=== PATIENT | male | born 1940 | race Caucasian/White ===

== ENCOUNTER → 2018-02-27 14:54 | Outpatient (CLI) | payer MEDICARE, OTHER, SELFPAY ==
--- NOTE | 2018-02-27 14:57 | DI.RAD.S_ITS ---
PROCEDURE: XR CHEST 2V INDICATIONS: cough TECHNIQUE: 2 views of the chest were acquired. COMPARISON: [facility], , CHEST 2 VIEW, 03/21/2013, 10:38. FINDINGS: Surgical changes and devices: None. Lungs and pleura: No pleural effusions or pneumothorax. Lungs are clear. Mediastinum: Mediastinal contours are normal. Heart size is normal. Right hilar calcified lymph nodes. Bones and chest wall: No suspicious bony abnormalities. Soft tissues appear unremarkable. IMPRESSION: No radiographic evidence of acute cardiopulmonary pathology. Dictated by: Cameron Main M.D. on 02/27/2018 at 14:21 Approved by: Cameron Main M.D. on 02/27/2018 at 14:22
== END ==
PROVIDERS: Family Provider Family Medicine; PCP Family Medicine; Visit Provider Physician Assistant
DX: R05 Cough (principal)
CPT/HCPCS: 71046

== ENCOUNTER → 2018-03-01 13:29 | Outpatient (CLI) | payer MEDICARE, OTHER, SELFPAY ==
[2018-03-01 14:19] LABS: BUN Creatinine Ratio 24.4 (6-22); Calcium 9.4 mg/dL (8.4-10.2); Estimated Glomerular Filt Rate > 60.0 mL/min (>60); Glucose 97 mg/dL (80-110); HEMOLYSIS 48 (0-50); Potassium 4.4 mmol/L (3.4-5.1); Sodium 140 mmol/L (137-145)
== END ==
PROVIDERS: Family Provider Family Medicine; PCP Family Medicine; Visit Provider Internal Medicine Cardiovascular Disease
DX: Z51.81 Encounter for therapeutic drug level monitoring (principal); Z79.899 Other long term (current) drug therapy
CPT/HCPCS: 36415; 80048

== ENCOUNTER → 2018-05-23 08:52 | Outpatient (CLI) | payer MEDICARE, OTHER, SELFPAY ==
--- NOTE | 2018-05-23 08:54 | DI.RAD.S_ITS ---
PROCEDURE: XR CERVICAL SPINE 2V OR 3V INDICATIONS: Cervicalgia TECHNIQUE: 4 view(s) of the cervical spine were acquired. COMPARISON: None. FINDINGS: Bones: No fractures or dislocations to the C7 level. The lateral masses of C1 appear intact on the odontoid view. No suspicious bony lesions. Degenerative disc disease and spondylosis is evident at C4-5, C5-6, C6-7 and C7-T1. Mild bilateral facet arthropathy. Soft tissues: No prevertebral soft tissue swelling. IMPRESSION: 1. No acute bony abnormality. 2. 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 Dictated by: Tyson Smith M.D. on 05/23/2018 at 9:18 Approved by: Tyson Smith M.D. on 05/23/2018 at 9:20
== END ==
PROVIDERS: Family Provider Family Medicine; PCP Family Medicine
DX: M50.30 Other cervical disc degeneration, unspecified cervical region (principal); M47.812 Spondylosis without myelopathy or radiculopathy, cervical region
CPT/HCPCS: 72040

== ENCOUNTER → 2018-06-14 09:28 | Outpatient (CLI) | payer MEDICARE, OTHER, SELFPAY ==
[2018-06-14 11:11] LABS: Blood Urea Nitrogen 20 mg/dL (9-20); Calcium 9.2 mg/dL (8.4-10.2); Carbon Dioxide 31 mmol/L (22-32); Chloride 102 mmol/L (98-107); Estimated Glomerular Filt Rate > 60.0 mL/min (>60); Glucose 73 mg/dL (80-110); HEMOLYSIS < 15 (0-50); Potassium 4.2 mmol/L (3.4-5.1); Sodium 143 mmol/L (137-145)
== END ==
PROVIDERS: PCP Family Medicine; Visit Provider Internal Medicine Cardiovascular Disease
DX: Z51.81 Encounter for therapeutic drug level monitoring (principal); Z79.899 Other long term (current) drug therapy
CPT/HCPCS: 36415; 80048

== ENCOUNTER → 2019-03-22 14:45 | Outpatient (CLI) | payer MEDICARE, OTHER, SELFPAY ==
[2019-03-22 15:35] LABS: BUN Creatinine Ratio 21.3 (6-22); Blood Urea Nitrogen 17 mg/dL (9-20); Carbon Dioxide 30 mmol/L (22-32); Chloride 102 mmol/L (98-107); Estimated Glomerular Filt Rate > 60.0 mL/min (>60); Glucose 95 mg/dL (80-110); HEMOLYSIS < 15 (0-50); Potassium 4.4 mmol/L (3.4-5.1); Sodium 138 mmol/L (137-145)
== END ==
PROVIDERS: Family Provider Family Medicine; PCP Family Medicine; Visit Provider Internal Medicine Cardiovascular Disease
DX: Z51.81 Encounter for therapeutic drug level monitoring (principal); Z79.899 Other long term (current) drug therapy
CPT/HCPCS: 36415; 80048

== ENCOUNTER → 2019-06-27 13:15 | Outpatient (CLI) | payer MEDICARE, OTHER, SELFPAY ==
[2019-06-27 14:23] LABS: Chloride 101 mmol/L (98-107); HEMOLYSIS < 15 (0-50); Potassium 4.2 mmol/L (3.4-5.1)
[2019-06-27 14:24] LABS: Blood Urea Nitrogen 18 mg/dL (9-20); Calcium 9.6 mg/dL (8.4-10.2); Carbon Dioxide 28 mmol/L (22-32); Estimated Glomerular Filt Rate > 60.0 mL/min (>60); Glucose 99 mg/dL (80-110); Sodium 138 mmol/L (137-145)
== END ==
PROVIDERS: PCP Internal Medicine; Visit Provider Internal Medicine Cardiovascular Disease
DX: Z51.81 Encounter for therapeutic drug level monitoring (principal); Z79.899 Other long term (current) drug therapy
CPT/HCPCS: 36415; 80048

== ENCOUNTER → 2019-08-17 07:33 | Outpatient (CLI) | payer MEDICARE, OTHER, SELFPAY ==
[2019-08-17 08:28] LABS: Blood Urea Nitrogen 15 mg/dL (9-20); Calcium 9.3 mg/dL (8.4-10.2); Carbon Dioxide 28 mmol/L (22-32); Chloride 102 mmol/L (98-107); Estimated Glomerular Filt Rate > 60.0 mL/min (>60); Glucose 86 mg/dL (80-110); HEMOLYSIS < 15 (0-50); Potassium 4.7 mmol/L (3.4-5.1); Sodium 137 mmol/L (137-145)
== END ==
PROVIDERS: PCP Internal Medicine; Visit Provider Internal Medicine Cardiovascular Disease
DX: Z51.81 Encounter for therapeutic drug level monitoring (principal); Z79.899 Other long term (current) drug therapy; I48.19 Other persistent atrial fibrillation
CPT/HCPCS: 36415; 80048

== ENCOUNTER → 2020-05-06 08:25 | Outpatient (CLI) | payer MEDICARE, OTHER, SELFPAY ==
[2020-05-06 09:59] LABS: Add Manual Diff / Slide Review NO; Basophils Absolute Auto 0 /uL (0-100); Basophils Percent Auto 0.5 % (0-2); Eosinophils Absolute Auto 500 /uL (0-450); Eosinophils Percent Auto 7.5 % (2-4); Hematocrit 42.1 % (41-53); Hemoglobin 14.4 g/dL (13.5-17.5); Lymphocytes Absolute Auto 1900 /uL (1100-4500); Lymphocytes Percent Auto 25.8 % (25-40); Mean Corpuscular HGB Conc 34.2 % (30-36); Mean Corpuscular Hemoglobin 32.4 PG (26-34); Mean Corpuscular Volume 94.8 fL (80-100); Monocytes Absolute Auto 500 /uL (0-900); Monocytes Percent Auto 6.4 % (3-14); Neutrophils Absolute Auto 4300 /uL (1500-7000); Neutrophils Percent Auto 59.8 % (50-75); Platelet Count 213 X10^3/uL (150-400); Red Blood Cell Count 4.44 X10^6/uL (4.5-5.9); White Blood Cell Count 7.2 X10^3/uL (4.5-11.0)
[2020-05-06 10:23] LABS: Alanine Aminotransferase 49 IU/L (<50); Albumin 3.9 g/dL (3.5-5.0); Albumin Globulin Ratio 1.4 (1.0-2.8); Alkaline Phosphatase 67 U/L (38-126); Aspartate Aminotransferase 48 IU/L (17-59); BUN Creatinine Ratio 16.5 (6-22); Bilirubin Total 0.9 mg/dL (0.2-1.3); Blood Urea Nitrogen 21 mg/dL (9-20); Calcium 9.2 mg/dL (8.4-10.2); Carbon Dioxide 28 mmol/L (22-32); Chloride 105 mmol/L (98-107); Cholesterol 192 mg/dL (140-199); Estimated Glomerular Filt Rate 54.8 mL/min (>60); Globulin 2.8 g/dL (1.7-4.1); Glucose 92 mg/dL (80-110); HDL Cholesterol 65 mg/dL (40-60); HEMOLYSIS < 15 (0-50); LDL Cholesterol Calculated 113 mg/dL (<100); Potassium 4.6 mmol/L (3.4-5.1); Sodium 136 mmol/L (137-145); Total Protein 6.7 g/dL (6.3-8.2); Triglycerides 71 mg/dL (35-150)
[2020-05-06 10:51] LABS: TSH w/ Reflex to FT4 3.14 uIU/mL (0.47-4.68)
== END ==
PROVIDERS: PCP Internal Medicine; Referring Provider Internal Medicine; Visit Provider Internal Medicine
DX: Z79.01 Long term (current) use of anticoagulants (principal); E78.5 Hyperlipidemia, unspecified; I48.0 Paroxysmal atrial fibrillation; Z86.11 Personal history of tuberculosis
CPT/HCPCS: 36415; 80053; 80061; 84443; 85025

== ENCOUNTER → 2020-05-26 08:54 | Outpatient (CLI) | payer MEDICARE, OTHER, SELFPAY ==
[2020-05-27 03:49] LABS: COVID19 Sendout Not Detected (Not Detect)
== END ==
PROVIDERS: PCP Internal Medicine; Visit Provider Physician Assistant
DX: Z11.59 Encounter for screening for other viral diseases (principal)
CPT/HCPCS: 87635

== ENCOUNTER → 2020-05-29 09:03 | Outpatient (CLI) | payer MEDICARE, OTHER, SELFPAY ==
--- NOTE | 2020-06-05 11:16 | PM.PFT.1 ---
Pulmonary Function Test Referral & Results Date Patient Seen: 05/29/20 Requesting provider: Ganga Miller Results: The spirometry demonstrates an FVC of 3.56 L which is 79% of predicted. The FEV1 was measured at 2.48 L which is 77% of predicted. The FEV1/FVC ratio was 70 which is 96% of predicted. No lung volumes were performed, and no bronchodilator was administered The diffusing capacity was measured at 23.59 which is 67% of predicted. No hemoglobin value was provided, so no correction for potential anemia could be made, if appropriate. Interpretation: This study demonstrates mild obstructive lung disease based on slight reduction in FEV1 There is also a modest reduction in diffusing capacity suggesting an element of disease at the capillary alveolar level Clinical correlation suggested
== END ==
PROVIDERS: PCP Internal Medicine; Referring Provider Internal Medicine Cardiovascular Disease; Visit Provider Internal Medicine Cardiovascular Disease
DX: I48.19 Other persistent atrial fibrillation (principal); J44.9 Chronic obstructive pulmonary disease, unspecified; Z51.81 Encounter for therapeutic drug level monitoring; Z79.899 Other long term (current) drug therapy
CPT/HCPCS: 94010; 94729

== ENCOUNTER → 2021-06-03 09:56 | Outpatient (CLI) | payer MEDICARE, OTHER, SELFPAY ==
--- NOTE | 2021-06-03 09:58 | DI.RAD.S_ITS ---
PROCEDURE: XR SHOULDER RT MIN 2V INDICATIONS: R shoulder strain TECHNIQUE: 3 views of the shoulder were acquired. COMPARISON: [facility], , SHOULDER MINIMUM 2 VIEW LEFT, 07/15/2011, 14:35. FINDINGS: Bones: No fractures or dislocations. No suspicious bony lesions. Visualized ribs appear intact. Scattered degenerative subchondral sclerosis and spurring. Soft tissues: No suspicious soft tissue calcifications. IMPRESSION: Mild right shoulder joint degeneration. If the patient's pain or other symptoms persist, consider further evaluation with MRI Dictated by: Dieter Mcdaniel M.D. on 06/03/2021 at 10:30 Approved by: Dieter Mcdaniel M.D. on 06/03/2021 at 10:31
== END ==
PROVIDERS: PCP Internal Medicine; Referring Provider Physician Assistant; Visit Provider Physician Assistant
DX: S46.911A Strain of unspecified muscle, fascia and tendon at shoulder and upper arm level, right arm, initial encounter (principal); M19.011 Primary osteoarthritis, right shoulder
CPT/HCPCS: 73030

== ENCOUNTER → 2021-10-16 14:01 | Outpatient (CLI) | payer MEDICARE, OTHER, SELFPAY ==
[2021-10-16 14:45] LABS: Add Manual Diff / Slide Review NO; Basophils Absolute Auto 0 /uL (0-100); Basophils Percent Auto 0.4 % (0-2); Eosinophils Absolute Auto 400 /uL (0-450); Eosinophils Percent Auto 5.5 % (2-4); Hematocrit 41.7 % (41-53); Hemoglobin 14.3 g/dL (13.5-17.5); Lymphocytes Absolute Auto 2200 /uL (1100-4500); Lymphocytes Percent Auto 30.7 % (25-40); Mean Corpuscular HGB Conc 34.4 % (30-36); Mean Corpuscular Hemoglobin 32.2 PG (26-34); Mean Corpuscular Volume 93.5 fL (80-100); Monocytes Absolute Auto 400 /uL (0-900); Monocytes Percent Auto 5.8 % (3-14); Neutrophils Absolute Auto 4200 /uL (1500-7000); Neutrophils Percent Auto 57.6 % (50-75); Platelet Count 219 X10^3/uL (150-400); Red Blood Cell Count 4.46 X10^6/uL (4.5-5.9); Red Cell Distribution Width 13.2 % (11.6-14.8); White Blood Cell Count 7.2 X10^3/uL (4.5-11.0)
[2021-10-16 15:09] LABS: Alanine Aminotransferase 14 IU/L (<50); Albumin 4.3 g/dL (3.5-5.0); Albumin Globulin Ratio 1.3 (1.0-2.8); Alkaline Phosphatase 60 U/L (38-126); Aspartate Aminotransferase 32 IU/L (17-59); BUN Creatinine Ratio 17.9 (6-22); Bilirubin Total 0.6 mg/dL (0.2-1.3); Blood Urea Nitrogen 19 mg/dL (9-20); Calcium 9.3 mg/dL (8.4-10.2); Carbon Dioxide 28 mmol/L (22-32); Chloride 104 mmol/L (98-107); Estimated Glomerular Filt Rate > 60.0 mL/min (>60); Globulin 3.3 g/dL (1.7-4.1); Glucose 91 mg/dL (80-110); HEMOLYSIS < 15 (0-50); Potassium 4.5 mmol/L (3.4-5.1); Sodium 137 mmol/L (137-145); Total Protein 7.6 g/dL (6.3-8.2)
[2021-10-16 15:37] LABS: TSH w/ Reflex to FT4 1.68 uIU/mL (0.47-4.68)
== END ==
PROVIDERS: PCP Internal Medicine; Referring Provider Internal Medicine; Visit Provider Internal Medicine
DX: E78.5 Hyperlipidemia, unspecified (principal); Z13.29 Encounter for screening for other suspected endocrine disorder; Z79.899 Other long term (current) drug therapy
CPT/HCPCS: 36415; 80053; 84443; 85025

== ENCOUNTER → 2022-03-15 08:58 | Outpatient (CLI) | payer MEDICARE, OTHER, SELFPAY ==
--- NOTE | 2022-03-15 09:00 | DI.MG.S_ITS ---
MALE BILATERAL DIGITAL DIAGNOSTIC MAMMOGRAM 3D/2D: 03/15/2022 CLINICAL: Left breast pain. No prior exams were available for comparison. There is mild to moderate left-sided gynecomastia in the retroareolar region corresponding to the patient-indicated area of concern. There is no significant right-sided gynecomastia. No suspicious mass is identified. No significant masses, calcifications, or other findings are seen in either breast. IMPRESSION: BENIGN Left gynecomastia is seen that corresponds to the patient's area of concern. Recommend clinical correlation and workup for causes of gynecomastia. There is no mammographic evidence of malignancy. This exam was interpreted at Station ID: [id number]. NOTE: For mammograms, a report in lay terms will be sent to the patient. Approximately 15% of breast malignancies will not be visualized mammographically. In the management of a palpable breast mass, a negative mammogram must not discourage biopsy of a clinically suspicious lesion. Electronically Signed By: Domingo cardoza/mateo:03/15/2022 10:29:38 letter sent: Clinical Evaluation ACR BI-RADS Category 2: Benign Finding(s) 3342F
== END ==
PROVIDERS: PCP Internal Medicine; Referring Provider Internal Medicine; Visit Provider Internal Medicine
DX: N64.4 Mastodynia (principal); N62 Hypertrophy of breast
CPT/HCPCS: 77066; G0279

== ENCOUNTER 2023-05-14 07:36 | Emergency (ER) | payer MEDICARE, OTHER, SELFPAY ==
[2023-05-14 07:41] VITALS: BP 185/77; PULSE 55; RESP 18; O2SAT 98; BMI 23.0
--- NOTE | 2023-05-14 07:46 | ED.GENADULT ---
HPI - General Adult General Chief complaint: Eye Problems Stated complaint: RT eye swollen Time Seen by Provider: 05/14/23 07:37 Source: patient Mode of arrival: Ambulatory History of Present Illness HPI narrative: Patient is an 82-year-old male was here for evaluation of approximately 48 hours of pain and irritation to his right eye. He denies any trauma. Has had bilateral cataract surgery in the past but that was several years ago. He states he is having some blurry vision in his right eye. No painful vision. No foreign body sensation. He states it is painful on the outside of his eye. It is watery and somewhat swollen. Related Data Home Medications Medication Instructions Recorded Confirmed Centrum Silver - Multivitamin 1 tab PO QDAY ##0 05/01/20 02/08/22 cetirizine 10 mg tablet (Zyrtec) 10 mg PO DAILY PRN 05/01/20 02/08/22 methocarbamol 500 mg tablet 500 mg PO .PRN 05/01/20 02/08/22 Magnesium Citrate 1 tab PO DAILY 10/20/21 02/08/22 furosemide 20 mg tablet 20 mg PO DAILY PRN 10/20/21 02/08/22 metoprolol succinate 25 mg 12.5 mg PO DAILY 10/20/21 02/08/22 tablet,extended release 24 hr Previous Rx's Medication Instructions Recorded rivaroxaban 20 mg tablet 20 mg PO QPM #90 tabs 10/14/20 finasteride 5 mg tablet 5 mg PO 3XW #36 tabs 10/20/21 erythromycin 5 mg/gram (0.5 %) eye 0.5 inch EYE-RIGHT BID 2 days #3.5 05/14/23 ointment grams Allergies Allergy/AdvReac Type Severity Reaction Status Date / Time No Known Drug Allergies Allergy Verified 02/08/22 16:26 Review of Systems Constitutional Constitutional: Reports system reviewed and no additional complaints, except as documented Eyes Eyes: Reports system reviewed and no additional complaints, except as documented ENT Ears, Nose, Mouth, and Throat: Reports system reviewed and no additional complaints, except as documented Integumentary/Breasts Skin/Breast: Reports system reviewed and no additional complaints, except as documented Patient History Medical History Acute hemorrhoid Allergic rhinitis (~1994) BPH w urinary obs/LUTS Cataract (~2017) Hemorrhoid (~1960) History of tuberculosis (Unknown) Hyperlipidemia 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 Brother Alzheimer's disease Grandmother No problems noted. Social History Smoking Status: Former smoker Tobacco: How many years used: 2 second hand exposure: No alcohol intake: current (wine with dinner and a little scotch 3 times a week. I have beer 2-3 times a week.) substance use type: does not use Smoking Status: Former smoker alcohol intake frequency: other Substance Use Type: does not use Exam Initial Vital Signs Initial Vital Signs: Vital Signs Pulse Rate 55 L 05/14/23 07:41 Respiratory Rate 18 05/14/23 07:41 Blood Pressure 185/77 H 05/14/23 07:41 Pulse Oximetry 98 05/14/23 07:41 Oxygen Delivery Method Room Air 05/14/23 07:41 Const General: cooperative, healthy appearing and No ill appearing HENMT Head: normal to inspection and normocephalic Face and sinus: normal facial exam Eyes Other: Left eye is unremarkable. Interocular pressure left eye 18, interocular pressure right eye 19. Patient does have chemosis on the inferior temporal aspect of the right eye. No foreign body noted with visual inspection and eversion of the upper and lower eyelid. There was no uptake with fluorescein staining. No corneal abrasion. No erythema in the skin around the eyes. There is some swelling of the skin around the eye. Pupils are equal round and reactive. Extraocular muscles are intact. No photophobia. No hyphema. No subconjunctival hemorrhage. Course Orders Ordered: Discontinued Medications Erythromycin (Erythromycin Ophth 1 Gm Oint) 1 applic EYE-RIGHT NOW ONE Stop: 05/14/23 08:04 Fluorescein Sodium (Fluorescein 1 Mg Strip) 1 mg EYE-BOTH NOW ONE Stop: 05/14/23 07:46 Last Admin: 05/14/23 07:52 Dose: 1 mg Documented By: MAVIS Proparacaine HCl (Proparacaine 0.5% Ophth Kerry) 1 drops EYE-RIGHT NOW ONE Stop: 05/14/23 07:48 Last Admin: 05/14/23 07:53 Dose: 1 drop Documented By: MAVIS Vital Signs Vital signs: Vital Signs - 8 hr 05/14/23 07:41 Pulse Rate 55 L Respiratory Rate 18 Blood Pressure 185/77 H Pulse Oximetry 98 Oxygen Delivery Method Room Air Medical Decision Making MDM Narrative Medical decision making narrative: Physical exam today is consistent with a conjunctivitis and chemosis of the right eye. Low suspicion for glaucoma, foreign body, orbital cellulitis, periorbital cellulitis, retinal pathology, trauma. Plan will be is to place the patient on antibiotic ointment. He was given a dose here in the ER and a prescription was sent to his pharmacy. 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 He was given strict return precautions. He expressed understanding and agreement. Discharge Plan Departure Patient Disposition: Home Clinical Impression: Conjunctivitis, Chemosis of right conjunctiva Instructions: Conjunctivitis Activity Restrictions/Additional Instructions: Use the erythromycin eye ointment like we discussed. I suspect that your symptoms will be better within the next couple days however if you need to use the antibiotic ointment for a little longer you certainly can. Be sure that you are washing your hands frequently. You can contact your vmware systems administrator on Tuesday for a follow-up. Return to the emergency department for new symptoms. Prescriptions: New erythromycin 5 mg/gram (0.5 %) ointment 0.5 inch EYE-RIGHT BID 2 Days Qty: 3.5 1RF No Action Centrum Silver - Multivitamin 1 tab PO QDAY Qty: 0 rivaroxaban 20 mg tablet 20 mg PO QPM Qty: 90 3RF cetirizine [Zyrtec] 10 mg tablet 10 mg PO DAILY PRN Rx Instructions: For Allergies methocarbamol 500 mg tablet 500 mg PO .PRN Rx Instructions: Takes when needed for muscle spasms furosemide 20 mg tablet 20 mg PO DAILY PRN Magnesium Citrate 400 mg 1 tab PO DAILY metoprolol succinate 25 mg tablet extended release 24 hr 12.5 mg PO DAILY finasteride 5 mg tablet 5 mg PO 3XW Qty: 36 3RF Referrals: Adrian London MD [Primary Care Provider] - Stand Alone Forms: Patient Portal/API
[2023-05-14] MEDS: FLUORESCEIN 1 MG STRIP EYE-BOTH (07:52)
[2023-05-14] MEDS: PROPARACAINE 0.5% OPHTH SOL 1 DROPS EYE-RIGHT (07:53)
[2023-05-14] MEDS: ERYTHROMYCIN OPHTH 1 GM OINT 1 APPLIC EYE-RIGHT (08:08)
== END 2023-05-14 08:19 | disposition home or self-care (01) ==
PROVIDERS: Emergency Provider Emergency Medicine; PCP Internal Medicine
DX: H10.9 Unspecified conjunctivitis (principal); H11.421 Conjunctival edema, right eye
CPT/HCPCS: 99282

== ENCOUNTER 2023-07-25 19:17 | Emergency (ER) | payer MEDICARE, OTHER, SELFPAY ==
[2023-07-25] VITALS (11 sets, daily range): BP systolic 95–142; BP diastolic 55–73; PULSE 74–88; RESP 24; TEMP 36.6; O2SAT 95–98; BMI 22.4
--- NOTE | 2023-07-25 19:50 | DI.RAD.S_ITS ---
PROCEDURE: XR CHEST 2V INDICATIONS: cough and pain with it. TECHNIQUE: 2 views of the chest were acquired. COMPARISON: [facility], , XR CHEST 2V, 02/27/2018, 15:03. [facility], , CHEST 2 VIEW, 03/21/2013, 10:38. FINDINGS: Surgical changes and devices: None. Lungs and pleura: Lungs are clear. No pleural effusions or pneumothorax. Mediastinum: Mediastinal contours are normal. Heart size is normal. Bones and chest wall: No suspicious bony abnormalities. Soft tissues appear unremarkable. IMPRESSION: No acute cardiopulmonary abnormality. Dictated by: Domingo Dobbins M.D. on 07/25/2023 at 21:46 Approved by: Domingo Dobbins M.D. on 07/25/2023 at 21:49
[2023-07-25 20:34] LABS: Influenza A - CEPHEID Flu A NEGATIVE (NEGATIVE); Influenza B - CEPHEID Flu B NEGATIVE (NEGATIVE); Respiratory Syncytial Virus Negative (Negative)
[2023-07-25 20:35] LABS: COVID-19 CEPHEID 4-PLEX PCR Negative (Negative)
[2023-07-25] MEDS: HYDROMORPHONE 0.5 MG INJ IV (21:48)
[2023-07-25 22:09] LABS: Add Manual Diff / Slide Review NO; Basophils Absolute Auto 100 /uL (0-100); Basophils Percent Auto 0.9 % (0-2); Eosinophils Absolute Auto 0 /uL (0-450); Eosinophils Percent Auto 0.1 % (2-4); Hematocrit 34.8 % (41-53); Hemoglobin 12.2 g/dL (13.5-17.5); Lymphocytes Absolute Auto 1300 /uL (1100-4500); Lymphocytes Percent Auto 12.2 % (25-40); Mean Corpuscular Hemoglobin 32.8 PG (26-34); Mean Corpuscular Volume 93.8 fL (80-100); Monocytes Absolute Auto 2500 /uL (0-900); Monocytes Percent Auto 24.2 % (3-14); Neutrophils Absolute Auto 6500 /uL (1500-7000); Neutrophils Percent Auto 62.6 % (50-75); Platelet Count 120 X10^3/uL (150-400); Red Blood Cell Count 3.71 X10^6/uL (4.5-5.9); White Blood Cell Count 10.4 X10^3/uL (4.5-11.0)
[2023-07-25 22:18] LABS: Alanine Aminotransferase 16 IU/L (<50); Albumin 4.1 g/dL (3.5-5.0); Albumin Globulin Ratio 1.1 (1.0-2.8); Alkaline Phosphatase 47 U/L (38-126); Aspartate Aminotransferase 26 IU/L (17-59); BUN Creatinine Ratio 16.5 (6-22); Bilirubin Total 0.9 mg/dL (0.2-1.3); Blood Urea Nitrogen 15 mg/dL (9-20); Calcium 9.2 mg/dL (8.4-10.2); Carbon Dioxide 26 mmol/L (22-32); Chloride 99 mmol/L (98-107); Estimated Glomerular Filt Rate > 60 mL/min (>60); Globulin 3.8 g/dL (1.7-4.1); Glucose 123 mg/dL (80-110); HEMOLYSIS 17 (0-50); Lipase 46 U/L (23-300); Magnesium 2.2 mg/dL (1.6-2.3); Potassium 4.4 mmol/L (3.4-5.1); Sodium 133 mmol/L (137-145); Total Protein 7.9 g/dL (6.3-8.2)
[2023-07-25 22:28] LABS: Troponin I < 0.012 ng/mL (0.01-0.034)
[2023-07-25 22:33] LABS: D Dimer 222 ng/ml (<500)
[2023-07-26] VITALS: BP 110/63; PULSE 75; O2SAT 98
[2023-07-26 00:30] VITALS: BP 106/55; PULSE 77; O2SAT 98
--- NOTE | 2023-07-26 00:43 | ED.BACK ---
HPI - Back Pain/Injury General Chief Complaint: Back Pain/Injury Stated Complaint: Neck pain, SOB, Sensitivity Time Seen by Provider: 07/25/23 21:36 Source: patient History of Present Illness HPI Narrative: 82-year-old gentleman with a history of hypertension, paroxysmal atrial fibrillation anticoagulated on rivaroxaban with 3 days of cough with pain in the upper back and his neck when he coughs. He is not noting palpitations, fevers. Symptoms today progress to the point that he felt he was unable to get into any type of comfortable position in the pain was severe enough that he could not get a deep breath. He is had no nausea, vomiting, abdominal pain, diarrhea, lower extremity swelling. Related Data Home Medications Medication Instructions Recorded Confirmed Centrum Silver - Multivitamin 1 tab PO QDAY ##0 05/01/20 02/08/22 cetirizine 10 mg tablet (Zyrtec) 10 mg PO DAILY PRN 05/01/20 02/08/22 methocarbamol 500 mg tablet 500 mg PO .PRN 05/01/20 02/08/22 Magnesium Citrate 1 tab PO DAILY 10/20/21 02/08/22 furosemide 20 mg tablet 20 mg PO DAILY PRN 10/20/21 02/08/22 metoprolol succinate 25 mg 12.5 mg PO DAILY 10/20/21 02/08/22 tablet,extended release 24 hr Previous Rx's Medication Instructions Recorded rivaroxaban 20 mg tablet 20 mg PO QPM #90 tabs 10/14/20 finasteride 5 mg tablet 5 mg PO 3XW #36 tabs 10/20/21 erythromycin 5 mg/gram (0.5 %) eye 0.5 inch EYE-RIGHT BID 2 days #3.5 05/14/23 ointment grams Allergies Allergy/AdvReac Type Severity Reaction Status Date / Time No Known Drug Allergies Allergy Verified 07/25/23 20:06 Review of Systems Review of Systems Narrative: Pertinent positive and negative findings as per HPI Patient History Medical History Acute hemorrhoid Allergic rhinitis (~1994) BPH w urinary obs/LUTS Cataract (~2016) Hemorrhoid (~1959) History of tuberculosis (Unknown) Hyperlipidemia residential current use of antiarrhythmic drug residential current use of anticoagulant 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 Brother Alzheimer's disease Grandmother No problems noted. Social History Smoking Status: Former smoker Tobacco: How many years used: 2 second hand exposure: No alcohol intake: current (wine with dinner and a little scotch 3 times a week. I have beer 2-3 times a week.) substance use type: does not use Smoking Status: Former smoker alcohol intake frequency: other Substance Use Type: does not use Exam Initial Vital Signs Initial Vital Signs: Vital Signs Temperature 97.9 F 07/25/23 19:30 Pulse Rate 88 07/25/23 19:30 Respiratory Rate 24 07/25/23 19:30 Blood Pressure 131/71 07/25/23 19:30 Pulse Oximetry 98 07/25/23 19:30 Oxygen Delivery Method Room Air 07/25/23 19:30 General: Healthy appearing, in no acute distress. Able to give a complete and coherent history. Well-nourished well-developed HEENT: Moist mucous membranes, normal sclera with reactive pupils, Neck: No JVD, supple Respiratory: Lungs are clear to auscultation, no wheezing no rales no rhonchi. Full and symmetrical air movement. No pain to palpation along the cervical spine, trapezius muscles or into the clavicle/1st rib area. Cardiac: Regular rate and rhythm no murmurs no bruits Abdomen: Soft, nontender, good bowel tones, no flank pain Skin: Warm and dry, no rashes Neurologic: Grossly neurologically intact with no obvious asymmetries or abnormalities Extremities: No trauma, well perfused Psych: Cooperative, appropriate insight and affect Course Orders Ordered: ED Orders 07/25/23 19:50 Chest [XR chest 2V] Stat Covid-19 + FLU A/B + RSV - PCR Stat 07/25/23 21:54 Complete Blood Count AUTO DIFF Stat Comprehensive Metabolic Panel Stat D Dimer Stat Lipase Stat Magnesium Stat Troponin I Stat Hydromorphone HCl (Hydromorphone 0.5 Mg Inj) 0.5 mg IV Q15MIN PRN PRN Reason: Pain, Last Admin: 07/25/23 21:48 Dose: 0.5 mg Documented By: IVETT Vital Signs Vital signs: Vital Signs - 8 hr 07/25/23 19:30 07/25/23 20:57 07/25/23 20:58 Temperature 97.9 F Pulse Rate 88 84 Respiratory Rate 24 Blood Pressure 131/71 Pulse Oximetry 98 96 97 Oxygen Delivery Method Room Air 07/25/23 20:58 07/25/23 21:00 07/25/23 21:01 Temperature Pulse Rate 79 Respiratory Rate Blood Pressure 138/59 L 142/73 H Pulse Oximetry 96 Oxygen Delivery Method 07/25/23 21:01 07/25/23 21:30 07/25/23 21:30 Temperature Pulse Rate 79 84 Respiratory Rate Blood Pressure 125/65 Pulse Oximetry 97 98 Oxygen Delivery Method 07/25/23 22:00 07/25/23 22:00 07/25/23 22:30 Temperature Pulse Rate 77 75 Respiratory Rate Blood Pressure 103/58 L Pulse Oximetry 95 97 Oxygen Delivery Method 07/25/23 22:30 07/25/23 23:00 07/25/23 23:00 Temperature Pulse Rate 79 Respiratory Rate Blood Pressure 95/55 L 105/59 L Pulse Oximetry 98 Oxygen Delivery Method 07/25/23 23:30 07/25/23 23:31 07/25/23 23:31 Temperature Pulse Rate 74 76 Respiratory Rate Blood Pressure 120/56 L Pulse Oximetry 98 98 Oxygen Delivery Method 07/26/23 00:00 07/26/23 00:00 07/26/23 00:30 Temperature Pulse Rate 75 Respiratory Rate Blood Pressure 110/63 106/55 L Pulse Oximetry 98 Oxygen Delivery Method 07/26/23 00:30 Temperature Pulse Rate 77 Respiratory Rate Blood Pressure Pulse Oximetry 98 Oxygen Delivery Method MDM - Back Pain/Injury Lab Data 07/25/23 21:54 07/25/23 21:54 Labs: Lab Results 07/25/23 07/25/23 Range/Units 19:50 21:54 WBC 10.4 (4.5-11.0) X10^3/uL RBC 3.71 L (4.5-5.9) X10^6/uL Hgb 12.2 L (13.5-17.5) g/dL Hct 34.8 L (41-53) % MCV 93.8 (80-100) fL MCH 32.8 (26-34) PG MCHC 35.0 (30-36) % RDW 14.0 (11.6-14.8) % Plt Count 120 L (150-400) X10^3/uL Neut % (Auto) 62.6 (50-75) % Lymph % (Auto) 12.2 L (25-40) % Cache % (Auto) 24.2 H (3-14) % Eos % (Auto) 0.1 L (2-4) % Baso % (Auto) 0.9 (0-2) % Neut # (Auto) 6500 (6006-6159) /uL Lymph # (Auto) 1300 (7923-9092) /uL Cache # (Auto) 2500 H (0-900) /uL Eos # (Auto) 0 (0-450) /uL Baso # (Auto) 100 (0-100) /uL D-Dimer 222 (<500) ng/ml Sodium 133 L (137-145) mmol/L Potassium 4.4 (3.4-5.1) mmol/L Chloride 99 (98-107) mmol/L Carbon Dioxide 26 (22-32) mmol/L BUN 15 (9-20) mg/dL Creatinine 0.91 (0.66-1.25) mg/dL Estimated GFR > 60 (>60) mL/min BUN/Creatinine Ratio 16.5 (6-22) Glucose 123 H (80-110) mg/dL Calcium 9.2 (8.4-10.2) mg/dL Magnesium 2.2 (1.6-2.3) mg/dL Total Bilirubin 0.9 (0.2-1.3) mg/dL AST 26 (17-59) IU/L ALT 16 (<50) IU/L Alkaline Phosphatase 47 (38-126) U/L Troponin I < 0.012 (0.01-0.034) ng/mL Total Protein 7.9 (6.3-8.2) g/dL Albumin 4.1 (3.5-5.0) g/dL Globulin 3.8 (1.7-4.1) g/dL Albumin/Globulin Ratio 1.1 (1.0-2.8) Lipase 46 (23-300) U/L SARS-CoV-2 (PCR) Negative (Negative) Influenza A (RT-PCR) Flu a negative (NEGATIVE) Influenza B (RT-PCR) Flu b negative (NEGATIVE) RSV (PCR) Negative (Negative) MDM Narrative Medical decision making narrative: CC: 3 days of cough with associated neck and upper back pain Complicating co-morbidities: Paroxysmal atrial fibrillation, anticoagulated Data collected from: patient, Social determinants of health that may influence the patients condition: Medical records reviewed: Internal medicine notes from February of 2022 reviewed Differential considered: Pulmonary embolism, acute coronary syndrome, aortic dissection, pneumothorax, pleuritic pain Exam documented above, pertinent findings include: Pain with inspiration at the lung apices radiating into the neck. No pain if he has shallow breathing. No reproducible pain exam is otherwise benign Lab Test results independently reviewed as above. Pertinent findings: CBC shows no acute leukocytosis however there is a moderate drop in his H&H. In comparison to October of 2021 at 14.3 and 41.7 he is now at 12.2 and 34.8. Platelet count is also slightly low at 120. D-dimer is low suggesting absence of pulmonary embolism Chemistries are reassuring with no renal or electrolyte abnormalities Troponin is undetectable Lipase is normal Serology shows no COVID, influenza or RSV Imaging studies independently reviewed: Chest x-ray shows no acute cardiopulmonary disease Treatments:parenteral dilaudid Re-evaluations: pain decreased by 80-90%, able to take a deep breath Discussion: 82-year-old gentleman who had the acute onset of pain in the upper lung apices radiating into his neck after a difficult trip returning from [place] being stuck in airports for extended numbers hours. He is not noting fevers or cough. Workup is entirely benign. I am appreciating no cardiac etiology. Chest x-ray is unremarkable. His pain was almost entirely resolved with a single half a mg of Dilaudid. Findings are reviewed with him. Questions are answered at this point I think he is safe for discharge home. There is maybe the start of a viral infection or may simply be mild pleuritic pain of uncertain etiology. We discussed the use of Tylenol and I am going to send him home with for Percocet for severe pain. He will follow up with his primary care physician. Discharge Plan Departure Patient Disposition: Home Clinical Impression: Acute pleurisy without pleural effusion Instructions: DI for Pleurisy Activity Restrictions/Additional Instructions: Thank you for coming in today I am sorry that you are suffering so much with this pain. Fortunately your workup today was entirely reassuring. I am not seeing any life-threatening abnormalities to explain the symptoms. Specifically, there is no sign of infection, pneumothorax, acute coronary syndrome, pulmonary embolism or aortic dissection. Your symptoms improved significantly with a small dose of parenteral narcotic, Dilaudid. At this time, I think that your symptoms are most likely secondary to pleuritic upper lung pain. The best treatment option for this is nonsteroidals however you can not take that due to your Xarelto. I would recommend Tylenol if needed and if you are having severe pain I would take 1 Percocet and 1 Tylenol. If symptoms change or you develop new findings please feel free to return to the emergency department Prescriptions: No Action Centrum Silver - Multivitamin 1 tab PO QDAY Qty: 0 rivaroxaban 20 mg tablet 20 mg PO QPM Qty: 90 3RF cetirizine [Zyrtec] 10 mg tablet 10 mg PO DAILY PRN Rx Instructions: For Allergies methocarbamol 500 mg tablet 500 mg PO .PRN Rx Instructions: Takes when needed for muscle spasms furosemide 20 mg tablet 20 mg PO DAILY PRN Magnesium Citrate 400 mg 1 tab PO DAILY metoprolol succinate 25 mg tablet extended release 24 hr 12.5 mg PO DAILY finasteride 5 mg tablet 5 mg PO 3XW Qty: 36 3RF erythromycin 5 mg/gram (0.5 %) ointment 0.5 inch EYE-RIGHT BID 2 Days Qty: 3.5 1RF Referrals: Adrian London MD [Primary Care Provider] - Stand Alone Forms: Patient Portal/API
[2023-07-26 01:00] VITALS: BP 114/61; PULSE 83; O2SAT 98
[2023-07-26] MEDS: OXYCODONE/APAP 5/325 PREPACK 1 BOTTLE MISC (01:10)
== END 2023-07-26 01:15 | disposition home or self-care (01) ==
PROVIDERS: Emergency Provider Emergency Medicine; PCP Internal Medicine
DX: R09.1 Pleurisy (principal); M54.6 Pain in thoracic spine; Z20.822 Contact with and (suspected) exposure to COVID-19
CPT/HCPCS: 0241U; 36415; 71046; 80053; 83690; 83735; 84484; 85025; 85379; 96374; 99284; J1170

== ENCOUNTER → 2023-08-05 11:40 | Outpatient (CLI) | payer MEDICARE, OTHER, SELFPAY ==
[2023-08-05 12:02] LABS: Hemoglobin 10.9 g/dL (13.5-17.5); Mean Corpuscular HGB Conc 34.2 % (30-36); Mean Corpuscular Hemoglobin 31.8 PG (26-34); Mean Corpuscular Volume 93.2 fL (80-100); Platelet Count 189 X10^3/uL (150-400); Red Blood Cell Count 3.43 X10^6/uL (4.5-5.9); White Blood Cell Count 6.3 X10^3/uL (4.5-11.0)
[2023-08-05 12:22] LABS: Alanine Aminotransferase 22 IU/L (<50); Albumin 4.1 g/dL (3.5-5.0); Albumin Globulin Ratio 1.1 (1.0-2.8); Alkaline Phosphatase 54 U/L (38-126); Aspartate Aminotransferase 26 IU/L (17-59); BUN Creatinine Ratio 16.5 (6-22); Bilirubin Total 0.3 mg/dL (0.2-1.3); Blood Urea Nitrogen 18 mg/dL (9-20); Calcium 9.7 mg/dL (8.4-10.2); Carbon Dioxide 27 mmol/L (22-32); Chloride 102 mmol/L (98-107); Estimated Glomerular Filt Rate > 60 mL/min (>60); Globulin 3.7 g/dL (1.7-4.1); Glucose 98 mg/dL (80-110); HEMOLYSIS < 15 (0-50); Potassium 4.8 mmol/L (3.4-5.1); Sodium 137 mmol/L (137-145); Total Protein 7.8 g/dL (6.3-8.2)
[2023-08-05 13:28] LABS: Folate > 20.0 ng/mL (2.76-20.0); Vitamin B12 966 pg/mL (239-931)
[2023-08-05 14:57] LABS: Neutrophils Absolute Manual 2835 /uL (3000-5900); Total Cells Counted 100
[2023-08-05 15:00] LABS: RBC Morphology Normal Morphology
[2023-08-05 16:53] LABS: HEMOLYSIS < 15 (0-50); Iron 87 ug/dL (49-181)
[2023-08-05 17:03] LABS: Percent Iron Saturation 40 % (20-50); Total Iron Binding Capacity 217 ug/dL (261-462); Transferrin 153 mg/dL (206-381)
[2023-08-07 12:59] LABS: Haptoglobin 292 mg/dL (38-329)
== END ==
PROVIDERS: PCP Internal Medicine; Referring Provider Internal Medicine; Visit Provider Internal Medicine
DX: D64.9 Anemia, unspecified (principal); Z79.01 Long term (current) use of anticoagulants
CPT/HCPCS: 36415; 80053; 82607; 82746; 83010; 83540; 83550; 85025

== ENCOUNTER → 2023-08-16 08:14 | Outpatient (CLI) | payer MEDICARE, OTHER, SELFPAY ==
--- NOTE | 2023-08-16 08:19 | DI.CT.S_ITS ---
PROCEDURE: CT KIDNEY URETER BLADDER (KUB) INDICATIONS: hematuria TECHNIQUE: Axial sections were acquired from the lung bases to the pubic symphysis. Coronal and sagittal reformats were performed. For radiation dose reduction, the following was used: automated exposure control, adjustment of mA and/or kV according to patient size. COMPARISON: None. FINDINGS: Image quality: Excellent. Lung bases: Very small left pleural effusion. Minor extreme lung base fibrotic changes. Heart: Small to moderate pericardial effusion. URINARY: Kidneys and ureters: Mild left pelviectasis. There is trace left perinephric inflammation and inflammation at the left ureteropelvic junction. Fat stranding around the left mid ureter and indistinct ureteral contour is present into the pelvis. No visible ureteral calculi and the distal ureter is nondilated. Bladder: The urinary bladder is only partially distended and the urinary bladder wall is uniformly thickened, expected for the degree of distension. No bladder calculi. ABDOMEN: Liver: Unremarkable. Gallbladder: Unremarkable Biliary ducts: Unremarkable. Pancreas: Unremarkable. Spleen: Unremarkable. Adrenal Glands: Unremarkable. Stomach and Bowel: Stomach and majority of the small bowel loops are normal. There is a short segment of a slightly prominent fluid-filled small bowel loop in the pelvis. The appendix is not seen. Normal increased quantity of solid stool throughout the colon. Peritoneum: No abnormal intraperitoneal fluid. No free air. Ventral Wall: Tiny fat containing umbilical hernia. Abdominal Nodes: No enlarged retroperitoneal or mesenteric lymph nodes. Vessels: Aorta and inferior vena cava are normal in size. PELVIS: Pelvic Organs: Unremarkable. Pelvic Nodes: Slightly prominent lymph nodes in the left external iliac chain and minor fat stranding adjacent to the neurovascular bundle. Miscellaneous: No inguinal hernias are seen. Bones: No suspicious bone lesions. Posterior fusion hardware L4-5. IMPRESSION: Mild left periureteric inflammation and slight hydroureter. No visible ureteral calcifications or associated obstructing mass. This finding is nonspecific and may be related to recent passage of calculus, infection, inflammation, hemorrhage, or neoplasm. Correlate with UA and consider CT IVP with contrast for further evaluation. Very small left pleural effusion and small to moderate size pericardial effusion. Dictated by: Macrina Flores M.D. on 08/16/2023 at 10:59 Approved by: Macrina Flores M.D. on 08/16/2023 at 11:09
== END ==
PROVIDERS: PCP Internal Medicine; Referring Provider Internal Medicine; Visit Provider Internal Medicine
DX: R31.9 Hematuria, unspecified (principal); I31.39 Other pericardial effusion (noninflammatory); J90 Pleural effusion, not elsewhere classified
CPT/HCPCS: 74176

== ENCOUNTER → 2023-08-22 11:53 | Outpatient (CLI) | payer MEDICARE, OTHER, SELFPAY ==
--- NOTE | 2023-08-22 | DI.CT.S_ITS ---
PROCEDURE: CT IVP A/P W/WO INDICATIONS: Hematuria, unspecified TECHNIQUE: Optional 5 mm thick noncontrast images acquired from the diaphragm to the symphysis pubis. After the administration of intravenous contrast, 5 mm thick images acquired from the diaphragm to the symphysis pubis after a 10-minute delay. 2 mm thick coronal and sagittal reformats were then performed of the kidneys and ureters. For radiation dose reduction, the following was used: automated exposure control, adjustment of mA and/or kV according to patient size. COMPARISON: [facility], CT, CT KIDNEY URETER BLADDER (KUB), 08/16/2023, 8:19. FINDINGS: Image quality: Excellent. Lung bases: Lung bases are clear. Trace pericardial effusion. Normal heart size. Urinary system: Right kidney: No stones or hydronephrosis or masses. Right ureter: Unremarkable Left kidney: Mild caliectasis, as before. No renal stones. No renal masses. Left ureter:There is a tiny calcification on current image 48 of series 2, the noncontrast axial images, which was present on previous image 50/2, and may, in retrospect, represents a tiny mid ureteral stone. There is interval decrease in periureteral inflammation. Ureter is of normal caliber. No suspicious masses in the ureter. Bladder: No bladder stones. Mild prostatomegaly. No significant bladder wall thickening. Other solid organs: Liver is normal in size and enhancement. Gallbladder is unremarkable without calcified gallstones. . Biliary system is non dilated. Pancreas enhances normally. Spleen is normal in size and enhancement. No adrenal nodules. Peritoneum and bowel: Bowel loops demonstrate normal wall thickness and caliber. No free fluid or air. Nodes and vessels: No retroperitoneal or mesenteric adenopathy by size criteria. Aorta and inferior vena cava are normal in size. Abdominal wall: No ventral hernias. Pelvis: No pathologic free pelvic fluid. No inguinal hernias or adenopathy. Bones: No suspicious bony lesions. No vertebral body compression fractures. Remote posterior decompressive laminectomy and posterior lateral dennis and pedicle screw fixation at L4-L5. IMPRESSION: 1. There is a calcification in the region of the mid left ureter which, in retrospect, was present on the previous study, and may be present within the ureter, representing a persistent ureteral stone. This currently does not result in obstruction. There is decreased inflammation around the proximal ureter above the calcification. There is also only mild caliectasis of the left kidney. 2. No renal stones or findings suspicious for malignancy. 3. Enlarged prostate. Dictated by: Marcin Kirkland M.D. on 08/22/2023 at 14:59 Approved by: Marcin Kirkland M.D. on 08/22/2023 at 15:11
== END ==
PROVIDERS: PCP Internal Medicine; Referring Provider Internal Medicine; Visit Provider Internal Medicine
DX: N20.1 Calculus of ureter (principal); R31.9 Hematuria, unspecified; N40.0 Benign prostatic hyperplasia without lower urinary tract symptoms
CPT/HCPCS: 74178; Q9967

== ENCOUNTER → 2023-08-31 14:46 | Outpatient (CLI) | payer MEDICARE, OTHER, SELFPAY ==
--- NOTE | 2023-08-31 14:47 | DI.US.S_ITS ---
PROCEDURE: US PERIPH VENOUS LOW EXTREM LT INDICATIONS: PAIN TECHNIQUE: Real-time imaging, as well as color and pulse Doppler interrogation, were performed of the lower extremity deep veins from the inguinal ligament to the popliteal fossa, with documentation of the visualized calf veins. COMPARISON: None. FINDINGS: The common femoral, femoral, popliteal, and the visualized calf veins are normally compressible, and free of intraluminal thrombus. Color and pulse Doppler demonstrate normal phasic intraluminal flow. There is normal augmentation response to distal compression maneuver. IMPRESSION: No findings of lower extremity deep venous thrombosis. Dictated by: Nelly Rodney M.D. on 08/31/2023 at 16:58 Approved by: Nelly Rodney M.D. on 08/31/2023 at 16:58
== END ==
PROVIDERS: PCP Internal Medicine; Referring Provider Nurse Practitioner Family; Visit Provider Nurse Practitioner Family
DX: M79.605 Pain in left leg (principal)
CPT/HCPCS: 93971

== ENCOUNTER → 2023-09-29 10:31 | Outpatient (CLI) | payer MEDICARE, OTHER, SELFPAY ==
--- NOTE | 2023-09-29 10:32 | DI.RAD.S_ITS ---
PROCEDURE: XR CHEST 2V INDICATIONS: 3 weeks dry cough, SOB TECHNIQUE: 2 views of the chest were acquired. COMPARISON: [facility], CR, XR CHEST 2V, 07/25/2023, 20:24. FINDINGS: Surgical changes and devices: None. Lungs and pleura: Lungs are clear. No pleural effusions or pneumothorax. Mediastinum: Mediastinal contours are normal. Heart size is normal. Bones and chest wall: No suspicious bony abnormalities. Soft tissues appear unremarkable. IMPRESSION: No acute cardiopulmonary abnormalities or focal airspace disease. Dictated by: Juvencio Bar M.D. on 09/29/2023 at 11:35 Approved by: Juvencio Bar M.D. on 09/29/2023 at 11:36
== END ==
PROVIDERS: PCP Internal Medicine; Referring Provider Student in an Organized Health Care Education/Training Program; Visit Provider Student in an Organized Health Care Education/Training Program
DX: R05.8 Other specified cough (principal)
CPT/HCPCS: 71046

== ENCOUNTER 2023-09-29 11:23 | Emergency (ER) | payer MEDICARE, OTHER, SELFPAY ==
[2023-09-29] VITALS (7 sets, daily range): BP systolic 108–120; BP diastolic 64–70; PULSE 98–112; RESP 20–30; TEMP 36.7; O2SAT 97–100; BMI 22.8
--- NOTE | 2023-09-29 11:59 | ED_ITS ---
HPI - General Adult General Chief complaint: Shortness of Breath/Dyspnea Stated complaint: sent by for respiratory issue, afib Time Seen by Provider: 09/29/23 11:25 Source: patient Mode of arrival: Ambulatory History of Present Illness HPI narrative: Patient is an 82-year-old male who went to the walk-in clinic this morning for approximately 3 weeks of a cough. No fevers. No chest pain. No shortness of breath. Has not tried anything for symptoms prior to arrival. He would a chest x-ray performed. Was found to be in atrial fibrillation. Was sent to the emergency department. Here in the ER he states he has a history of paroxysmal AFib. Is on anticoagulation. Takes metoprolol. Has taken all of his medicines. Denies fevers. He does not feel the palpitations. Does not specifically know when this episode started. Related Data Home Medications Medication Instructions Recorded Confirmed Centrum Silver - Multivitamin 1 tab PO QDAY ##0 05/01/20 09/29/23 Magnesium Citrate 1 tab PO DAILY 10/20/21 09/29/23 Nicotinamide 1 cap PO BID 08/05/23 09/29/23 metoprolol succinate 25 mg 12.5 mg PO DAILY 08/15/23 09/29/23 tablet,extended release 24 hr Previous Rx's Medication Instructions Recorded rivaroxaban 20 mg tablet 20 mg PO QPM #90 tabs 10/14/20 finasteride 5 mg tablet 5 mg PO 3XW #36 tabs 10/20/21 benzonatate 100 mg capsule 100 mg PO Q6H PRN cough #20 caps 09/29/23 Allergies Allergy/AdvReac Type Severity Reaction Status Date / Time No Known Drug Allergies Allergy Verified 09/29/23 09:27 Review of Systems Cardiovascular Cardiovascular: Reports system reviewed and no additional complaints, except as documented Respiratory Respiratory: Reports system reviewed and no additional complaints, except as documented Gastrointestinal Gastrointestinal: Reports system reviewed and no additional complaints, except as documented Integumentary/Breasts Skin/Breast: Reports system reviewed and no additional complaints, except as documented Hematologic/Lymphatic On Anticoagulants: Yes Patient History Medical History (Updated 09/29/23 @ 13:59 by Juan A Hankins DO) BPH w urinary obs/LUTS Hemorrhoid (~1959) 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 Brother Alzheimer's disease Grandmother No problems noted. Social History Smoking Status: Former smoker Tobacco: How many years used: 2 second hand exposure: No alcohol intake: current (wine with dinner and a little scotch 3 times a week. I have beer 2-3 times a week.) substance use type: does not use Smoking Status: Former smoker alcohol intake frequency: other Substance Use Type: does not use Exam Initial Vital Signs Initial Vital Signs: Vital Signs Temperature 98.1 F 09/29/23 11:27 Pulse Rate 102 H 09/29/23 11:27 Respiratory Rate 30 H 09/29/23 11:27 Blood Pressure 116/67 09/29/23 11:27 Pulse Oximetry 100 09/29/23 11:27 Oxygen Delivery Method Room Air 09/29/23 11:27 HENFL Head: normal to inspection and normocephalic Resp Effort & Inspection: normal respiratory effort Auscultation: clear to auscultation bilaterally Cardio Rate: tachycardic Rhythm: abnormal rhythm GI Inspection: normal to inspection and non-distended Skin General: no rashes or lesions noted Neuro General: patient alert, patient awake and moves all extremities Extrem General: normal to inspection Course Orders Ordered: ED Orders 09/29/23 11:37 Measure peak expiratory flow ONCE RT Consult Eval and Treat NOW 09/29/23 11:45 Complete Blood Count AUTO DIFF Stat Comprehensive Metabolic Panel Stat Lactate (Lactic Acid) Stat NT-proBNP (BNP-Adult 18+) Stat Prothrombin Time INR Stat Troponin I Stat 09/29/23 11:50 EKG-12 Lead Stat 09/29/23 12:33 Covid-19 + FLU A/B + RSV - PCR Stat Vital Signs Vital signs: Vital Signs - 8 hr 09/29/23 11:27 09/29/23 11:43 09/29/23 12:00 Temperature 98.1 F Pulse Rate 102 H 112 H 100 H Respiratory Rate 30 H 25 H Blood Pressure 116/67 Pulse Oximetry 100 97 Oxygen Delivery Method Room Air 09/29/23 12:00 09/29/23 12:30 09/29/23 12:30 Temperature Pulse Rate 98 H Respiratory Rate 23 Blood Pressure 115/70 108/68 Pulse Oximetry 98 Oxygen Delivery Method 09/29/23 13:00 09/29/23 13:00 09/29/23 13:30 Temperature Pulse Rate 98 H 102 H Respiratory Rate 20 24 Blood Pressure 120/64 Pulse Oximetry 97 97 Oxygen Delivery Method Room Air 09/29/23 13:30 Temperature Pulse Rate Respiratory Rate Blood Pressure 116/66 Pulse Oximetry Oxygen Delivery Method Medical Decision Making Lab Data 09/29/23 11:45 09/29/23 11:45 Labs: Lab Results 09/29/23 09/29/23 Range/Units 11:45 12:33 WBC 15.0 H (4.5-11.0) X10^3/uL RBC 3.14 L (4.5-5.9) X10^6/uL Hgb 9.7 L (13.5-17.5) g/dL Hct 29.0 L (41-53) % MCV 92.5 (80-100) fL MCH 31.0 (26-34) PG MCHC 33.5 (30-36) % RDW 16.4 H (11.6-14.8) % Plt Count 141 L (150-400) X10^3/uL Neut % (Auto) 46.0 L (50-75) % Lymph % (Auto) 14.7 L (25-40) % Rincon % (Auto) 38.2 H (3-14) % Eos % (Auto) 0.2 L (2-4) % Baso % (Auto) 0.9 (0-2) % Neut # (Auto) 6900 (0691-3720) /uL Lymph # (Auto) 2200 (8199-3431) /uL Rincon # (Auto) 5700 H (0-900) /uL Eos # (Auto) 0 (0-450) /uL Baso # (Auto) 100 (0-100) /uL PT 26.0 H (9.4-12.5) SECONDS INR 2.2 H (0.9-1.3) Sodium 138 (137-145) mmol/L Potassium 4.3 (3.4-5.1) mmol/L Chloride 104 (98-107) mmol/L Carbon Dioxide 27 (22-32) mmol/L BUN 21 H (9-20) mg/dL Creatinine 1.34 H (0.66-1.25) mg/dL Estimated GFR 53 L (>60) mL/min BUN/Creatinine Ratio 15.7 (6-22) Glucose 113 H (80-110) mg/dL Lactate 1.2 (0.7-2.1) mmol/L Calcium 9.6 (8.4-10.2) mg/dL Total Bilirubin 0.7 (0.2-1.3) mg/dL AST 30 (17-59) IU/L ALT 18 (<50) IU/L Alkaline Phosphatase 50 (38-126) U/L Troponin I < 0.012 (0.01-0.034) ng/mL NT-Pro-B Natriuret Pep 3610 H (<450) pg/mL Total Protein 8.3 H (6.3-8.2) g/dL Albumin 4.1 (3.5-5.0) g/dL Globulin 4.2 H (1.7-4.1) g/dL Albumin/Globulin Ratio 1.0 (1.0-2.8) SARS-CoV-2 (PCR) Negative (Negative) Influenza A (RT-PCR) Flu a negative (NEGATIVE) Influenza B (RT-PCR) Flu b negative (NEGATIVE) RSV (PCR) Negative (Negative) Imaging Data Chest x-ray: Radiologist's Impression: PROCEDURE: XR CHEST 2V INDICATIONS: 3 weeks dry cough, SOB TECHNIQUE: 2 views of the chest were acquired. COMPARISON: [facility], , XR CHEST 2V, 07/25/2023, 20:24. FINDINGS: Surgical changes and devices: None. Lungs and pleura: Lungs are clear. No pleural effusions or pneumothorax. Mediastinum: Mediastinal contours are normal. Heart size is normal. Bones and chest wall: No suspicious bony abnormalities. Soft tissues appear unremarkable. IMPRESSION: No acute cardiopulmonary abnormalities or focal airspace disease. ECG Data Interpretation: Atrial flutter Ventricular rate 113 Normal axis Normal QRS Nonspecific ST T wave changes MDM Narrative Medical decision making narrative: No respiratory distress. Chest x-ray is unremarkable. COVID is negative. He is in AFib. I have a suspicion that he is an AFib more often than what he thinks. 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 He is on metoprolol. Initially he stated that he has been taking all of his medications however upon further evaluation he states he did miss his metoprolol this morning. He has no chest pain. He is relatively rate controlled with a heart rate 95-110. I discussed with him the option of a cardioversion. He is a candidate for this because he is on anticoagulation. He would like to hold on a cardioversion for now. He would like to take his metoprolol and contact his slot tag inserter for a follow-up. There was no indication for antibiotics. We will try Jeff Rivera to try to help with the cough. He was given return precautions. He expressed understanding and agreement. Discharge Plan Departure Patient Disposition: Home Clinical Impression: Atrial fibrillation, Cough Instructions: DI for Cough -- Adult Activity Restrictions/Additional Instructions: It is important to take all of your medications as directed. I recommend that you take your metoprolol when you return home from this visit. Continue to take this as directed. A prescription for a cough medicine was sent to [facility]. Please take it as directed and as needed. Contact your slot tag inserter for a follow-up. Return to the emergency department for new symptoms. Prescriptions: New benzonatate 100 mg capsule 100 mg PO Q6H PRN (Reason: cough) Qty: 20 0RF No Action Centrum Silver - Multivitamin 1 tab PO QDAY Qty: 0 rivaroxaban 20 mg tablet 20 mg PO QPM Qty: 90 3RF Nicotinamide 500 mg 1 cap PO BID Rx Instructions: Prescribed by [facility]. Magnesium Citrate 400 mg 1 tab PO DAILY finasteride 5 mg tablet 5 mg PO 3XW Qty: 36 3RF metoprolol succinate 25 mg tablet extended release 24 hr 12.5 mg PO DAILY Referrals: Adrian London MD [Primary Care Provider] - Stand Alone Forms: Patient Portal/API
[2023-09-29 12:09] LABS: HEMOLYSIS < 15 (0-50)
--- NOTE | 2023-09-29 12:09 | PC.NURSE ---
Pt states he has had 2 cardioversions before for his Afib. Pt says he would like to stay away from cardioversion today since his last cardioversion only lasted 2x days before he was back in afib. Pt is unable to describe having palpitations but says he frequently check my pulses to assess how strong they are. Pt denies dizziness, lightheaded, or chest pain. Pt complains of a non productive cough and shortness of breathe worse with exertion.
[2023-09-29 12:14] LABS: INR 2.2 (0.9-1.3); Lactate (Lactic Acid) 1.2 mmol/L (0.7-2.1)
[2023-09-29 12:16] LABS: Alanine Aminotransferase 18 IU/L (<50); Albumin 4.1 g/dL (3.5-5.0); Alkaline Phosphatase 50 U/L (38-126); Aspartate Aminotransferase 30 IU/L (17-59); BUN Creatinine Ratio 15.7 (6-22); Bilirubin Total 0.7 mg/dL (0.2-1.3); Blood Urea Nitrogen 21 mg/dL (9-20); Calcium 9.6 mg/dL (8.4-10.2); Carbon Dioxide 27 mmol/L (22-32); Chloride 104 mmol/L (98-107); Estimated Glomerular Filt Rate 53 mL/min (>60); Globulin 4.2 g/dL (1.7-4.1); Glucose 113 mg/dL (80-110); Potassium 4.3 mmol/L (3.4-5.1); Sodium 138 mmol/L (137-145); Total Protein 8.3 g/dL (6.3-8.2)
[2023-09-29 12:27] LABS: Add Manual Diff / Slide Review NO; Basophils Absolute Auto 100 /uL (0-100); Basophils Percent Auto 0.9 % (0-2); Eosinophils Absolute Auto 0 /uL (0-450); Eosinophils Percent Auto 0.2 % (2-4); Hemoglobin 9.7 g/dL (13.5-17.5); Lymphocytes Absolute Auto 2200 /uL (1100-4500); Lymphocytes Percent Auto 14.7 % (25-40); Mean Corpuscular HGB Conc 33.5 % (30-36); Mean Corpuscular Volume 92.5 fL (80-100); Monocytes Absolute Auto 5700 /uL (0-900); Monocytes Percent Auto 38.2 % (3-14); Neutrophils Absolute Auto 6900 /uL (1500-7000); Platelet Count 141 X10^3/uL (150-400); Red Blood Cell Count 3.14 X10^6/uL (4.5-5.9); Red Cell Distribution Width 16.4 % (11.6-14.8)
[2023-09-29 12:39] LABS: NT-proBNP (BNP-Adult 18+) 3610 pg/mL (<450); Troponin I < 0.012 ng/mL (0.01-0.034)
--- NOTE | 2023-09-29 12:43 | PC.NURSE ---
Pt was able to feel more rested while laying in bed. Pt asks what his heart rate is, I informed him it was still high (above 100). He stated he is feeling better and the cough is not so aggressive right now. He states his shortness of breathe is feeling better at the moment.
[2023-09-29 13:25] LABS: Influenza A - CEPHEID Flu A NEGATIVE (NEGATIVE); Influenza B - CEPHEID Flu B NEGATIVE (NEGATIVE); Respiratory Syncytial Virus Negative (Negative)
[2023-09-29 13:39] LABS: COVID-19 CEPHEID 4-PLEX PCR Negative (Negative)
== END 2023-09-29 14:20 | disposition home or self-care (01) ==
PROVIDERS: Emergency Provider Emergency Medicine; PCP Internal Medicine
DX: I48.91 Unspecified atrial fibrillation (principal); I44.30 Unspecified atrioventricular block; I48.92 Unspecified atrial flutter; R05.9 Cough, unspecified; Z79.01 Long term (current) use of anticoagulants; R05.8 Other specified cough
CPT/HCPCS: 0241U; 36415; 71046; 80053; 83605; 83880; 84484; 85025; 85610; 93005; 93010; 99283; 99284

== ENCOUNTER 2023-10-17 11:19 | Emergency (ER) | payer MEDICARE, OTHER, SELFPAY ==
[2023-10-17 11:43] VITALS: BP 129/58; PULSE 57; RESP 16; TEMP 36.6; O2SAT 100; BMI 22.4
--- NOTE | 2023-10-17 13:40 | ED_ITS ---
HPI - Allergic Reaction <ALIZE Key - Last Filed: 10/17/23 13:45> General Chief complaint: Allergic Reaction Stated complaint: reaction to medication t-7 Time Seen by Provider: 10/17/23 12:28 Source: patient Mode of arrival: Ambulatory History of Present Illness HPI narrative: 82-year-old male, former smoker with history of AFib, presents to the emergency department with persistent all body pruritus. Patient had been treated in the emergency department and prescribed Tessalon Perles and patient believes he developed an allergic reaction to this and had all body hives. Patient was seen in the walk-in clinic where they were prescribed prednisone for 3 days and topical Benadryl. Patient thought the topical Benadryl was worsening his symptoms and putting him more at risk for converting back into AFib. Patient did notice improvement with the prednisone but has since run out. Patient denies any difficulty breathing or sensation that his throat is closing. Related Data Home Medications Medication Instructions Recorded Confirmed Centrum Silver - Multivitamin 1 tab PO QDAY ##0 05/01/20 10/08/23 Magnesium Citrate 1 tab PO DAILY 10/20/21 10/08/23 Nicotinamide 1 cap PO BID 08/05/23 10/08/23 metoprolol succinate 25 mg 12.5 mg PO DAILY 08/15/23 10/08/23 tablet,extended release 24 hr Previous Rx's Medication Instructions Recorded rivaroxaban 20 mg tablet 20 mg PO QPM #90 tabs 10/14/20 finasteride 5 mg tablet 5 mg PO 3XW #36 tabs 10/20/21 methylprednisolone 4 mg tablets in See Rx Instructions PO .COMPLEX 10/17/23 a dose pack (Medrol (Aric)) #21 ea Allergies Allergy/AdvReac Type Severity Reaction Status Date / Time benzonatate AdvReac Intermediate Rash Verified 10/08/23 14:34 Review of Systems <ALIZE Key - Last Filed: 10/17/23 13:45> Review of Systems Narrative: Narrative: See HPI. GENERAL: Denies chills, fatigue, fever, sweats. HEENT: Denies sinus pain, ear pain, sore throat, difficulty swallowing, d izziness. RESPIRATORY: Denies dyspnea, cough, wheezing, sputum. CARDIOVASCULAR: Denies chest pain, palpitations, edema. GASTROINTESTINAL: Denies nausea, vomiting, abdominal pain, diarrhea, constipatio n. MSK: Denies weakness, joint pain, or bony pain. SKIN: Denies skin lesions. Endorses all body rash and pruritus. NEUROLOGIC: Denies weakness, dizziness, headache, numbness, confusion. 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 Brother Alzheimer's disease Grandmother No problems noted. Social History Smoking Status: Former smoker Tobacco: How many years used: 2 second hand exposure: No alcohol intake: current (wine with dinner and a little scotch 3 times a week. I have beer 2-3 times a week.) substance use type: does not use Smoking Status: Former smoker alcohol intake frequency: 0-2 drinks per day Substance Use Type: does not use Exam <ALIZE Key - Last Filed: 10/17/23 13:45> Narrative Exam Narrative: Exam Narrative: GENERAL: This is a well-nourished, well-developed patient, in no acute distress. HEAD: Atraumatic. Normocephalic. EYES: Pupils equal round and reactive. No scleral icterus, injection or drainage. ENT: Nose without bleeding, purulent drainage. Airway patent. CARDIOVASCULAR: Regular rate and rhythm without murmurs, peripheral pulses intact, cap refill <2 sec. RESPIRATORY: Breath sounds equal and clear bilaterally. No wheezes, rales, or rhonchi. No cough. No increased respiratory effort. No accessory muscle use. MSK: Moves all extremities. Normal range of motion, no clubbing or edema. Neurovascularly intact. NEURO: A&O x 3. SKIN: Warm, dry, no lesions noted. Multiple sites on upper torso where he had itched previous hives until they bled. No existing hives. Initial Vital Signs Initial Vital Signs: Vital Signs Temperature 97.9 F 10/17/23 11:43 Pulse Rate 57 L 10/17/23 11:43 Respiratory Rate 16 10/17/23 11:43 Blood Pressure 129/58 L 10/17/23 11:43 Pulse Oximetry 100 10/17/23 11:43 Oxygen Delivery Method Room Air 10/17/23 11:43 Reviewed <Catracho Randhawa MD - Last Filed: 10/18/23 18:21> Initial Vital Signs Initial Vital Signs: Vital Signs Temperature 97.9 F 10/17/23 11:43 Pulse Rate 57 L 10/17/23 11:43 Respiratory Rate 16 10/17/23 11:43 Blood Pressure 129/58 L 10/17/23 11:43 Pulse Oximetry 100 10/17/23 11:43 Oxygen Delivery Method Room Air 10/17/23 11:43 Course <ALIZE Key - Last Filed: 10/17/23 13:45> Vital Signs Vital signs: Vital Signs - 8 hr 10/17/23 11:43 Temperature 97.9 F Pulse Rate 57 L Respiratory Rate 16 Blood Pressure 129/58 L Pulse Oximetry 100 Oxygen Delivery Method Room Air <Catracho Randhawa MD - Last Filed: 10/18/23 18:21> Vital Signs Vital signs: Vital Signs - 8 hr 10/17/23 11:43 Temperature 97.9 F Pulse Rate 57 L Respiratory Rate 16 Blood Pressure 129/58 L Pulse Oximetry 100 Oxygen Delivery Method Room Air MDM - Allergic Reaction <ALIZE Key - Last Filed: 10/17/23 13:45> Differential Diagnosis Differential diagnosis: Likely allergic reaction, adverse reaction to drug and urticaria MDM Narrative Medical decision making narrative: 82-year-old male with suspected allergic reaction to Tessalon Perles. Patient's symptoms have significantly improved since initial reaction to the medication, but still has persistent itching. Good results with 3 day course of prednisone and will therefore prescribe a Medrol Dosepak. Patient had inquired about a injection, but I would feel more comfortable with oral medication in case he has another reaction. Recommended Zyrtec after the prednisone has been used its entirety. Discussed plan of care and worsening symptoms that would necessitate a return visit. Patient verbalized understanding and was agreeable to course of action. <Catracho Randhawa MD - Last Filed: 10/18/23 18:21> [facility] Narrative Medical decision making narrative: 82-year-old male with suspected allergic reaction to Tessalon Perles. Patient's symptoms have significantly improved since initial reaction to the medication, but still has persistent itching. Good results with 3 day course of prednisone and will therefore prescribe a Medrol Dosepak. Patient had inquired about a injection, but I would feel more comfortable with oral medication in case he has another reaction. Recommended Zyrtec after the prednisone has been used its entirety. Discussed plan of care and worsening symptoms that would necessitate a return visit. Patient verbalized understanding and was agreeable to course of action. I was immediately available in the department for consultation. Documentation has been reviewed. I agree with assessment and plan. Discharge Plan Departure Patient Disposition: Home Clinical Impression: Urticaria Instructions: DI for Adverse Drug Reaction -- Allergic Activity Restrictions/Additional Instructions: *You have been diagnosed with pruritus or itchy skin. Since the previously prescribed prednisone has worked well for you, we will place you on a tapering dose of prednisone to get the itching under control. If you have completed the prednisone, you may take a daily Zyrtec in the morning for itching. For any worsening symptoms that include difficulty breathing or sensation that her throat is closing, please return to the emergency room immediately or call 911. *What to do: *Please continue to take your regular medications as directed. [ x] New medication prescriptions sent to your pharmacy: [[facility]] [ ] New medication written as a paper prescription [ ] No new medications given *Please follow up with your primary care provider in 2-3 days, call for an appointment. Let them know you were seen in the Emergency Department and that we ask that you be seen in follow up. We will electronically transmit a record of today's note if your PCP is in our system *If you do not have a primary care provider please contact the [facility] Resource line at [phone]. They will ask some questions about your medical history and help get you set up with a doctor in the community. ? Return to ER if you should have any new, worsening or concerning symptoms, such as worsening pain, severe headache, confusion, chest pain, difficulty breathing, fever greater than 101 F, shaking chills, persistent vomiting to the point that you cannot drink fluids, or other new or worsening symptoms. Prescriptions: New methylprednisolone [Medrol (Aric)] 4 mg tablets,dose pack See Rx Instructions .ROUTE .COMPLEX Qty: 21 0RF Rx Instructions: orally per package directions No Action Centrum Silver - Multivitamin 1 tab PO QDAY Qty: 0 rivaroxaban 20 mg tablet 20 mg PO QPM Qty: 90 3RF Nicotinamide 500 mg 1 cap PO BID Rx Instructions: Prescribed by Dermatologis. Magnesium Citrate 400 mg 1 tab PO DAILY finasteride 5 mg tablet 5 mg PO 3XW Qty: 36 3RF metoprolol succinate 25 mg tablet extended release 24 hr 12.5 mg PO DAILY Referrals: Adrian London MD [Primary Care Provider] - Stand Alone Forms: Patient Portal/API
[2023-10-17 13:44] VITALS: BP 116/56; PULSE 64; RESP 14; O2SAT 100
== END 2023-10-17 13:47 | disposition home or self-care (01) ==
PROVIDERS: Emergency Provider Registered Nurse; PCP Internal Medicine
DX: L50.9 Urticaria, unspecified (principal)
CPT/HCPCS: 99281; 99282

== ENCOUNTER 2023-11-13 01:39 | Emergency (ER) | payer MEDICARE, OTHER, SELFPAY ==
[2023-11-13] VITALS (11 sets, daily range): BP systolic 124–177; BP diastolic 57–78; PULSE 49–65; RESP 22; TEMP 36.4; O2SAT 93–99; BMI 22.4
[2023-11-13] MEDS: FLUORESCEIN 1 MG STRIP EYE-BOTH (01:54)
[2023-11-13] MEDS: PROPARACAINE 0.5% OPHTH SOL 1 DROPS EYE-BOTH (01:57)
[2023-11-13 02:05] LABS: Hematocrit 29.5 % (41-53); Hemoglobin 9.8 g/dL (13.5-17.5); Mean Corpuscular HGB Conc 33.2 % (30-36); Mean Corpuscular Hemoglobin 31.4 PG (26-34); Mean Corpuscular Volume 94.5 fL (80-100); Platelet Count 116 X10^3/uL (150-400); Red Blood Cell Count 3.12 X10^6/uL (4.5-5.9); Red Cell Distribution Width 18.5 % (11.6-14.8)
--- NOTE | 2023-11-13 02:05 | ED.EYEPROB ---
HPI - Eye Problem General Chief complaint: Eye Problems Stated complaint: L EYE completley swollen shut - DAY 3 Time Seen by Provider: 11/13/23 01:44 Source: patient Mode of arrival: Ambulatory History of Present Illness HPI Narrative: Gentleman with atrial fibrillation and chronic anticoagulation with apixaban comes to the ED tonight by private vehicle because of a throbbing and swelling in his left eye. Noticed this now for the past 3 nights. He is noticed swelling and redness but no visual change. He did not have any eye pain until tonight when he noticed a deep throbbing and he thought he better come to the hospital for evaluation. He has no other symptoms of illness. No URI symptoms no cough no fever no congestion no injury to the eye that he is aware of. He had bilateral cataract surgery about a year ago. He does not have glaucoma to his knowledge or any other intrinsic eye disease. The right eye is unaffected. He was on oral prednisolone/prednisone for an ENT inflammation recently but he has not had any in over a week now. Related Data Home Medications Medication Instructions Recorded Confirmed Centrum Silver - Multivitamin 1 tab PO QDAY ##0 05/01/20 10/08/23 Magnesium Citrate 1 tab PO DAILY 10/20/21 10/08/23 Nicotinamide 1 cap PO BID 08/05/23 10/08/23 metoprolol succinate 25 mg 12.5 mg PO DAILY 08/15/23 10/08/23 tablet,extended release 24 hr Previous Rx's Medication Instructions Recorded rivaroxaban 20 mg tablet 20 mg PO QPM #90 tabs 10/14/20 finasteride 5 mg tablet 5 mg PO 3XW #36 tabs 10/20/21 methylprednisolone 4 mg tablets in See Rx Instructions PO .COMPLEX 10/17/23 a dose pack (Medrol (Aric)) #21 ea Allergies Allergy/AdvReac Type Severity Reaction Status Date / Time benzonatate AdvReac Intermediate Rash Verified 10/08/23 14:34 Patient History Medical History BPH w urinary obs/LUTS 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 Brother Alzheimer's disease Grandmother No problems noted. Social History Smoking Status: Former smoker Tobacco: How many years used: 2 second hand exposure: No alcohol intake: current (wine with dinner and a little scotch 3 times a week. I have beer 2-3 times a week.) substance use type: does not use Smoking Status: Former smoker alcohol intake frequency: 0-2 drinks per day Substance Use Type: does not use Exam Narrative Exam Narrative: GENERAL: Alert, cooperative and in no distress. HEAD: Atraumatic. Normocephalic. EYES: Sclera are clear without icterus. Periorbital swelling and redness without warmth on the left. There is marked chemosis. Slit-lamp exam reveals no corneal defect or anterior chamber flare. The anterior chamber is quiet. Has an irregular pupil which is similar to the unaffected right side with the parent previous cataract surgery with cataracts scar. The upper eyelid can not be everted because of swelling. With lateral gaze he has diplopia but I attribute this to the swelling of the conjunctiva, specifically the bulbar conjunctiva. There is no fluorescein uptake. Satinder-Pen reveals a intra-ocular pressure of between 2 and 4 on the left it is similarly low on the right. ENT: No rhinorrhea NECK: No visible abnormality RESPIRATORY: No respiratory distress GASTROINTESTINAL: Nondistended EXTREMITIES: No obvious trauma. NEURO: Nonfocal, normal speech SKIN: No rash or erythema of visible areas PSYCH: Normally oriented. Normal range of affect. Appropriate behavior Visual acuity is as follows: OD: 20/40 OS: 20/40 Initial Vital Signs Initial Vital Signs: Vital Signs Pulse Rate 65 11/13/23 01:44 Blood Pressure 177/78 H 11/13/23 01:44 Pulse Oximetry 99 11/13/23 01:44 Oxygen Delivery Method Room Air 11/13/23 01:44 Course Orders Ordered: ED Orders 11/13/23 01:55 CBC Auto Diff [Complete Blood Count AUTO DIFF] Stat CMP [Comprehensive Metabolic Panel] Stat Lactate (Lactic Acid) Stat Pathologist Review (for CBC) Stat 11/13/23 02:58 CT orbit BI wo/w con Stat Vancomycin HCl/Dextrose (Vancomycin) 2,000 mg in 400 mls @ 200 mls/hr IV NOW ONE Stop: 11/13/23 04:32 Last Admin: 11/13/23 02:51 Dose: 200 mls/hr Discontinued Medications Fluorescein Sodium (Fluorescein 1 Mg Strip) 1 mg EYE-BOTH NOW ONE Stop: 11/13/23 01:50 Last Admin: 11/13/23 01:54 Dose: 1 mg Documented By: AB Gentamicin Sulfate (Gentamicin 0.3% Ophth 5 Ml) 1 drops EYE-LEFT QID BOBBY Ceftriaxone Sodium 1,000 mg/ (Sodium Chloride) 100 mls @ 200 mls/hr IV NOW ONE Stop: 11/13/23 02:29 Last Infusion: 11/13/23 02:59 Dose: Infused Ibuprofen (Ibuprofen 400 Mg Tablet) 800 mg PO NOW ONE Stop: 11/13/23 02:05 Last Admin: 11/13/23 02:20 Dose: 800 mg Prednisolone Acetate (Prednisolone Ophth Susp) 1 drops EYE-LEFT QID BOBBY Proparacaine HCl (Proparacaine 0.5% Ophth Kerry) 1 drops EYE-BOTH NOW ONE Stop: 11/13/23 01:50 Last Admin: 11/13/23 01:57 Dose: 1 drop Documented By: Vancomycin HCl (Vancomycin Per Pharmacy) 1 request MISC NOW PRN PRN Reason: orbital cellulitis Vital Signs Vital signs: Vital Signs - 8 hr 11/13/23 01:44 11/13/23 01:44 11/13/23 01:45 Temperature 97.6 F Pulse Rate 65 63 Respiratory Rate 22 Blood Pressure 177/78 H 177/78 H Pulse Oximetry 99 99 Oxygen Delivery Method Room Air Room Air 11/13/23 02:58 11/13/23 02:58 11/13/23 03:00 Temperature Pulse Rate 54 L Respiratory Rate Blood Pressure 129/60 124/57 L Pulse Oximetry 94 Oxygen Delivery Method 11/13/23 03:00 11/13/23 03:21 11/13/23 03:21 Temperature Pulse Rate 52 L 56 L Respiratory Rate Blood Pressure 153/70 H Pulse Oximetry 93 96 Oxygen Delivery Method MDM - Eye Problem Lab Data 11/13/23 01:55 11/13/23 01:55 Labs: Lab Results 11/13/23 Range/Units 01:55 WBC 40.9 H* (4.5-11.0) X10^3/uL RBC 3.12 L (4.5-5.9) X10^6/uL Hgb 9.8 L (13.5-17.5) g/dL Hct 29.5 L (41-53) % MCV 94.5 (80-100) fL MCH 31.4 (26-34) PG MCHC 33.2 (30-36) % RDW 18.5 H (11.6-14.8) % Plt Count 116 L (150-400) X10^3/uL Neut % (Auto) Not Reportable Lymph % (Auto) Not Reportable [place] % (Auto) Not Reportable Eos % (Auto) Not Reportable Baso % (Auto) Not Reportable Lymph # (Auto) Not Reportable [place] # (Auto) Not Reportable Baso # (Auto) Not Reportable Total Counted 100 Seg Neutrophils % 43.0 (38-70) % Band Neutrophils % 8.0 H (3-7) % Lymphocytes % (Manual) 13.0 L (25-45) % Atypical Lymphs % 5.0 H ( - 0) % Monocytes % (Manual) 29.0 H (2-11) % Metamyelocytes % 2.0 H (-0) % Neutrophils # (Manual) 79970 H (8208-1879) /uL RBC Morphology See below Anisocytosis 1+ H Macrocytosis 1+ H Sodium 136 L (137-145) mmol/L Potassium 4.2 (3.4-5.1) mmol/L Chloride 103 (98-107) mmol/L Carbon Dioxide 22 (22-32) mmol/L BUN 22 H (9-20) mg/dL Creatinine 1.54 H (0.66-1.25) mg/dL Estimated GFR 45 L (>60) mL/min BUN/Creatinine Ratio 14.3 (6-22) Glucose 105 (80-110) mg/dL Lactate 0.8 (0.7-2.1) mmol/L Calcium 9.4 (8.4-10.2) mg/dL Total Bilirubin 0.5 (0.2-1.3) mg/dL AST 26 (17-59) IU/L ALT 20 (<50) IU/L Alkaline Phosphatase 68 (38-126) U/L Total Protein 7.9 (6.3-8.2) g/dL Albumin 3.9 (3.5-5.0) g/dL Globulin 4.0 (1.7-4.1) g/dL Albumin/Globulin Ratio 1.0 (1.0-2.8) Imaging Data CT scan - head: Radiologist's Impression: [facility] preliminary report is as follows: Impression: 1.3 by 0.4 x 0.6 cm left lateral preseptal periorbital abscess with overlying cellulitis MDM Narrative Medical decision making narrative: Gentleman comes in with 3 days of left eye swelling. He has pain with eye movement. No fever but he has marked leukocytosis 240 1000 with a manual differential showing 21,000 white cells and band forms as well 8% his visual acuity is maintained. He does not have an elevated intra-ocular pressure. But the pain with eye movement and the marked leukocytosis without another source makes me want to treat him for orbital cellulitis with vancomycin and Rocephin. We are actively seeking a facility with capacity for inpatient ophthalmologic consultation for expected transferred to a higher level of care. I spoke to from Ophthalmology at [facility] who agrees to accept the patient in transfer. Vancomycin and Rocephin have been administered. He will be transferred to the ED at [facility] via BLS. Discharge Plan Departure Patient Disposition: [facility] Clinical Impression: Abscess of periorbital region Prescriptions: No Action Centrum Silver - Multivitamin 1 tab PO QDAY Qty: 0 rivaroxaban 20 mg tablet 20 mg PO QPM Qty: 90 3RF Nicotinamide 500 mg 1 cap PO BID Rx Instructions: Prescribed by Dermatolog[facility]. Magnesium Citrate 400 mg 1 tab PO DAILY finasteride 5 mg tablet 5 mg PO 3XW Qty: 36 3RF metoprolol succinate 25 mg tablet extended release 24 hr 12.5 mg PO DAILY methylprednisolone [Medrol (Aric)] 4 mg tablets,dose pack See Rx Instructions .ROUTE .COMPLEX Qty: 21 0RF Rx Instructions: orally per package directions Referrals: Adrian London MD [Primary Care Provider] -
[2023-11-13 02:09] LABS: Add Manual Diff / Slide Review YES
[2023-11-13 02:11] LABS: White Blood Cell Count 40.9 X10^3/uL (4.5-11.0)
[2023-11-13 02:16] LABS: Alanine Aminotransferase 20 IU/L (<50); Albumin 3.9 g/dL (3.5-5.0); Alkaline Phosphatase 68 U/L (38-126); Aspartate Aminotransferase 26 IU/L (17-59); BUN Creatinine Ratio 14.3 (6-22); Bilirubin Total 0.5 mg/dL (0.2-1.3); Blood Urea Nitrogen 22 mg/dL (9-20); Calcium 9.4 mg/dL (8.4-10.2); Carbon Dioxide 22 mmol/L (22-32); Chloride 103 mmol/L (98-107); Estimated Glomerular Filt Rate 45 mL/min (>60); Glucose 105 mg/dL (80-110); HEMOLYSIS < 15 (0-50); Potassium 4.2 mmol/L (3.4-5.1); Sodium 136 mmol/L (137-145); Total Protein 7.9 g/dL (6.3-8.2)
[2023-11-13] MEDS: IBUPROFEN 400 MG TABLET 800 MG PO (02:20)
[2023-11-13 02:34] LABS: Anisocytosis 1+; Neutrophils Absolute Manual 20859 /uL (3000-5900); Total Cells Counted 100
[2023-11-13] MEDS: cefTRIAXone 1,000 MG in SODIUM CHLORIDE 0.9% 100 ML 200 MG IV (02:34)
[2023-11-13 02:35] LABS: Macrocytosis 1+
[2023-11-13 02:51] LABS: Lactate (Lactic Acid) 0.8 mmol/L (0.7-2.1)
[2023-11-13] MEDS: VANCOMYCIN 2,000 MG/400 ML PIGGYBACK 200 MG IV (02:51)
--- NOTE | 2023-11-13 02:58 | DI.CT.S_ITS ---
PROCEDURE: CT ORBIT BI WO/W CON INDICATIONS: left periorbital infection with swelling TECHNIQUE: After the administration of intravenous contrast, 2.5 mm axial images acquired through the orbits, with coronal and sagittal reformats. For radiation dose reduction, the following was used: automated exposure control, adjustment of mA and/or kV according to patient size. COMPARISON: None. FINDINGS: Image quality: Excellent. Orbits: Left periorbital soft tissue swelling is seen. There is 13 x 4 x 6 mm focal fluid collection seen along the deep aspect of the eyelid, as demonstrated on series 8, image 26 and on series 10, image 10. No postseptal involvement can be seen. Globes are symmetrical. The optic nerves are normal in size and enhancement. No retrobulbar masses or fat abnormalities. The extra-ocular muscles are normal and symmetrical in appearance. Lacrimal glands are normal. Optic chiasm is normal. Intracranial: The pituitary gland is normal, without sellar or suprasellar masses. Visualized cerebral hemispheres, brainstem, and spinal cord appear normal. Bones and sinuses: Visualized calvarium and facial bones appear intact. Visualized sinuses and mastoids are clear. IMPRESSION: 13 mm periorbital abscess seen, with associated surrounding cellulitis. No post septal involvement can be seen. Note: No significant discrepancy from the preliminary report. Dictated by: Darnell Montgomery M.D. on 11/13/2023 at 8:57 Approved by: Darnell Montgomery M.D. on 11/13/2023 at 9:01
[2023-11-13] MEDS: SODIUM CHLORIDE 0.9% 500 ML 1000 ML IV (04:55)
== END 2023-11-13 05:47 | disposition short-term general hospital (02) ==
PROVIDERS: Emergency Provider Family Medicine Addiction Medicine; PCP Internal Medicine
DX: H05.012 Cellulitis of left orbit (principal)
CPT/HCPCS: 36415; 70482; 80053; 83605; 85007; 85025; 96365; 96366; 96367; 99284; J0696; Q9967

== ENCOUNTER 2023-11-23 13:27 | Emergency (ER) | payer MEDICARE, OTHER, SELFPAY ==
[2023-11-23] VITALS (29 sets, daily range): BP systolic 101–143; BP diastolic 56–97; PULSE 104–138; RESP 13–43; TEMP 36.6; O2SAT 90–97; BMI 22.4
--- NOTE | 2023-11-23 14:00 | DI.RAD.S_ITS ---
PROCEDURE: XR CHEST 1V INDICATIONS: chest pain TECHNIQUE: One view of the chest was acquired. COMPARISON: [facility], CR, XR CHEST 2V, 09/29/2023, 10:48. FINDINGS: Surgical changes and devices: None. Lungs and pleura: Severe right basilar airspace opacity. Moderate right pleural effusion. Mild left basilar airspace opacity. Mediastinum: Mediastinal contours appear normal. Heart size is normal. Bones and chest wall: No suspicious bony lesions. Overlying soft tissues appear unremarkable. IMPRESSION: 1. Right greater than left bibasilar pneumonia. Continued plain film surveillance is recommended to ensure resolution, and to exclude underlying or central malignancy. 2. Right pleural effusion. Dictated by: Meera Vasquez M.D. on 11/23/2023 at 14:36 Approved by: Meera Vasquez M.D. on 11/23/2023 at 14:39
--- NOTE | 2023-11-23 14:31 | ED_ITS ---
HPI - Arrhythmia/Palpitations <Meena Dunaway, DO - Last Filed: 11/26/23 06:51> General Chief Complaint: Arrhythmia/Palpitations Stated Complaint: Afib Time Seen by Provider: 11/23/23 14:02 Source: patient Mode of arrival: Family Vehicle History of Present Illness HPI narrative: Patient 82-year-old male history of atrial fibrillation on Xarelto recently went to [facility] with preseptal cellulitis DAC grow adenitis with new diagnosis of a myeloproliferative disorder presents today with increasing shortness of breath. He was discharged from [facility] yesterday he reports that he got lots of fluid. He feels like he might be a little bit more short of breath as well and feels like his heart rate has increased. He is actually requiring 1 L of oxygen. He denies any orthopnea fever or chills. He reports that his eye has completely resolved. I have reviewed records from review was also found to have a right nonobstructing kidney stone encouraged him to hydrate. He reports that he is having pain on that right side, but is pointing anteriorly right upper quadrant rather than flank. #Preseptal cellulitis #Dacryoadenitis - complete PO abx course: augmentin (11/17-11/27) -?follow up in [facility] on Tuesday, 11/22 to be seen by oculoplastics? -?Continue maxitrol gtt QID left eye? ? #myeloproliferative disorder?? - prophylactic allopurinol - arranging outpatient follow-up with heme-onc (patient lives in [place]) ? #Atrial fibrillation #bilateral atrial enlargement - continue home amiodarone 100mg BID - continue home metoprolol XL 37.5mg BID - anticoagulation: rivaroxaban daily ? #R nonobstructing kidney stone - encouraging hydration - pain regiment: Oxycodone 2.5-5mg q4hr PRN ? Related Data Home Medications Medication Instructions Recorded Confirmed Magnesium Citrate 1 tab PO DAILY 10/20/21 11/23/23 amiodarone 200 mg tablet 100 mg PO BID 11/23/23 11/23/23 metoprolol succinate 25 mg 37.5 mg PO BID 11/23/23 11/23/23 tablet,extended release 24 hr rivaroxaban 20 mg tablet (Xarelto) 20 mg PO DAILY 11/23/23 11/23/23 rivaroxaban 20 mg tablet (Xarelto) 20 mg PO DAILY 11/23/23 11/23/23 Previous Rx's Medication Instructions Recorded finasteride 5 mg tablet 5 mg PO 3XW #36 tabs 10/20/21 Allergies Allergy/AdvReac Type Severity Reaction Status Date / Time benzonatate AdvReac Intermediate Rash Verified 11/23/23 14:32 Review of Systems <Noreen Dorantes MD - Last Filed: 11/25/23 05:37> Review of Systems Narrative: Pertinent positive and negative findings as per HPI Patient History <Meena Dunaway DO - Last Filed: 11/26/23 06:51> Medical History BPH w urinary obs/LUTS Hemorrhoid (~1959) [facility] current 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 Brother Alzheimer's disease Grandmother No problems noted. Social History Smoking Status: Former smoker Tobacco: How many years used: 2 second hand exposure: No alcohol intake: current (wine with dinner and a little scotch 3 times a week. I have beer 2-3 times a week.) substance use type: does not use Smoking Status: Former smoker alcohol intake frequency: 0-2 drinks per day Substance Use Type: does not use Exam <Meena Dunaway DO - Last Filed: 11/26/23 06:51> Initial Vital Signs Initial Vital Signs: Vital Signs Temperature 97.9 F 11/23/23 13:34 Pulse Rate 121 H 11/23/23 13:34 Respiratory Rate 16 11/23/23 13:34 Blood Pressure 114/69 11/23/23 13:34 Pulse Oximetry 93 11/23/23 13:34 Oxygen Delivery Method Room Air 11/23/23 13:34 GENERAL: Alert very pleasant 82-year-old and in no acute distress. HEENT: Head atraumatic,EOMI, pupils reactive, face symmetric, moist mucous membranes CARDIOVASCULAR: Irregularly irregular RESPIRATORY: Decreased breath sounds right base greater than left no significant respiratory distress no wheezes rales or rhonchi ABDOMEN: Soft, nontender. Normoactive bowel sounds all 4 quadrants. No guarding or rebound. EXTREMITIES: Normal range of motion, no clubbing or edema. Neurovascularly intact NEUROLOGICAL: Alert and oriented x4.Normal gait and speech. SKIN: Warm, dry, no laceration, no petechiae, no rashes or lesions. <Noreen Dorantes MD - Last Filed: 11/25/23 05:37> Initial Vital Signs Initial Vital Signs: Vital Signs Temperature 97.9 F 11/23/23 13:34 Pulse Rate 121 H 11/23/23 13:34 Respiratory Rate 16 11/23/23 13:34 Blood Pressure 114/69 11/23/23 13:34 Pulse Oximetry 93 11/23/23 13:34 Oxygen Delivery Method Room Air 11/23/23 13:34 <Harshad Burns MD - Last Filed: 11/25/23 07:59> Initial Vital Signs Initial Vital Signs: Vital Signs Temperature 97.9 F 11/23/23 13:34 Pulse Rate 121 H 11/23/23 13:34 Respiratory Rate 16 11/23/23 13:34 Blood Pressure 114/69 11/23/23 13:34 Pulse Oximetry 93 11/23/23 13:34 Oxygen Delivery Method Room Air 11/23/23 13:34 Course <Meena Dunaway DO - Last Filed: 11/26/23 06:51> Orders Ordered: Discontinued Medications Acetaminophen (Acetaminophen 325 Mg Tablet) 650 mg PO Q6H PRN PRN Reason: Pain, Mild (1-3) Amiodarone HCl (Amiodarone 200 Mg Tablet) 100 mg PO BID [facility] Last Admin: 11/24/23 20:54 Dose: 100 mg Documented By: Admin: 11/24/23 08:35 Dose: 100 mg Documented By: Admin: 11/23/23 22:25 Dose: 100 mg Documented By: PRINCE Aspirin (Aspirin 81 Mg Chew Tab) 324 mg PO NOW ONE Stop: 11/23/23 14:01 Last Admin: 11/23/23 14:56 Dose: Not Given Documented By: JAZLYN Enoxaparin Sodium (Enoxaparin 40 Mg/0.4 Ml Syringe) 75 mg SUBCUT BID [facility] Last Admin: 11/24/23 21:02 Dose: 75 mg Documented By: WAYNE Furosemide (Furosemide 40 Mg/4 Ml Vial) 40 mg IV NOW ONE Stop: 11/23/23 14:51 Last Admin: 11/23/23 15:17 Dose: 40 mg Documented By: JAZLYN Furosemide (Furosemide 40 Mg/4 Ml Vial) 60 mg IV NOW ONE Stop: 11/23/23 22:13 Last Admin: 11/23/23 22:34 Dose: 60 mg Documented By: PRINCE Cefepime HCl 2 gm/ Sodium (Chloride) 100 mls @ 200 mls/hr IV NOW ONE Stop: 11/23/23 18:36 Last Infusion: 11/23/23 20:45 Dose: Infused Documented By: Admin: 11/23/23 20:11 Dose: 200 mls/hr Documented By: PRINCE Vancomycin HCl (Vancomycin) 1,000 mg in 200 mls @ 200 mls/hr IV NOW ONE Stop: 11/23/23 19:34 Last Infusion: 11/23/23 21:12 Dose: Infused Documented By: Admin: 11/23/23 20:14 Dose: 200 mls/hr Documented By: PRINCE Amiodarone HCl/Dextrose (Nexterone) 150 mg in 100 mls @ 600 mls/hr IV NOW ONE; Protocol Stop: 11/23/23 22:13 Last Infusion: 11/23/23 22:41 Dose: Infused Documented By: Admin: 11/23/23 22:30 Dose: 600 mls/hr Documented By: PRINCE Cefepime HCl 2 gm/ Sodium (Chloride) 100 mls @ 200 mls/hr IV Q12H [facility] Last Admin: 11/24/23 01:47 Dose: Not Given Documented By: PRINCE Cefepime HCl 2 gm/ Sodium (Chloride) 100 mls @ 200 mls/hr IV Q12H [facility] Last Infusion: 11/24/23 20:51 Dose: Infused Documented By: Admin: 11/24/23 20:21 Dose: 200 mls/hr Documented By: WAYNE Vancomycin HCl (Vancomycin) 1,000 mg in 200 mls @ 200 mls/hr IV NOW ONE Stop: 11/24/23 02:59 Last Infusion: 11/24/23 03:05 Dose: Infused Documented By: Admin: 11/24/23 01:57 Dose: 200 mls/hr Documented By: PRINCE Vancomycin HCl (Vancomycin) 1,250 mg in 250 mls @ 166.667 mls/hr IV Q24H [facility] Last Infusion: 11/24/23 21:39 Dose: Infused Documented By: Admin: 11/24/23 20:09 Dose: 166.667 mls/hr Documented By: WAYNE Melatonin (Melatonin 3 Mg Tablet) 3 mg PO BEDTIME [facility] Last Admin: 11/24/23 21:18 Dose: 3 mg Documented By: WAYNE Metoprolol Succinate (Metoprolol Er 25 Mg Tablet) 37.5 mg PO BID [facility] Last Admin: 11/24/23 20:58 Dose: 37.5 mg Documented By: Admin: 11/24/23 20:54 Dose: 37.5 mg Documented By: Admin: 11/24/23 08:35 Dose: 37.5 mg Documented By: Admin: 11/23/23 22:26 Dose: 37.5 mg Documented By: PRINCE Rivaroxaban (Rivaroxaban 10 Mg Tablet) 20 mg PO NOW ONE Stop: 11/23/23 22:05 Last Admin: 11/23/23 22:26 Dose: 20 mg Documented By: PRINCE Vancomycin HCl (Vancomycin Per Pharmacy) 1 request MIS NOW [facility] Vital Signs Vital signs: Vital Signs - 8 hr 11/25/23 00:00 11/25/23 00:00 11/25/23 00:30 Temperature Pulse Rate 115 H 114 H Respiratory Rate 22 19 Blood Pressure 124/64 Pulse Oximetry 94 95 Oxygen Delivery Method Nasal Cannula Nasal Cannula Oxygen Flow Rate 2 2 11/25/23 00:30 11/25/23 01:00 11/25/23 01:00 Temperature Pulse Rate 110 H Respiratory Rate 19 Blood Pressure 108/65 119/71 Pulse Oximetry 95 Oxygen Delivery Method Nasal Cannula Oxygen Flow Rate 2 11/25/23 01:30 11/25/23 01:30 Temperature 98.3 F Pulse Rate 129 H Respiratory Rate 19 Blood Pressure 105/65 Pulse Oximetry 93 Oxygen Delivery Method Nasal Cannula Oxygen Flow Rate 3 <Noreen L Laursen, MD - Last Filed: 11/25/23 05:37> Orders Ordered: Discontinued Medications Acetaminophen (Acetaminophen 325 Mg Tablet) 650 mg PO Q6H PRN PRN Reason: Pain, Mild (1-3) Amiodarone HCl (Amiodarone 200 Mg Tablet) 100 mg PO BID [facility] Last Admin: 11/24/23 20:54 Dose: 100 mg Documented By: Admin: 11/24/23 08:35 Dose: 100 mg Documented By: Admin: 11/23/23 22:25 Dose: 100 mg Documented By: PRINCE Aspirin (Aspirin 81 Mg Chew Tab) 324 mg PO NOW ONE Stop: 11/23/23 14:01 Last Admin: 11/23/23 14:56 Dose: Not Given Documented By: JAZLYN Enoxaparin Sodium (Enoxaparin 40 Mg/0.4 Ml Syringe) 75 mg SUBCUT BID [facility] Last Admin: 11/24/23 21:02 Dose: 75 mg Documented By: WAYNE Furosemide (Furosemide 40 Mg/4 Ml Vial) 40 mg IV NOW ONE Stop: 11/23/23 14:51 Last Admin: 11/23/23 15:17 Dose: 40 mg Documented By: JAZLYN Furosemide (Furosemide 40 Mg/4 Ml Vial) 60 mg IV NOW ONE Stop: 11/23/23 22:13 Last Admin: 11/23/23 22:34 Dose: 60 mg Documented By: PRINCE Cefepime HCl 2 gm/ Sodium (Chloride) 100 mls @ 200 mls/hr IV NOW ONE Stop: 11/23/23 18:36 Last Infusion: 11/23/23 20:45 Dose: Infused Documented By: Admin: 11/23/23 20:11 Dose: 200 mls/hr Documented By: PRINCE Vancomycin HCl (Vancomycin) 1,000 mg in 200 mls @ 200 mls/hr IV NOW ONE Stop: 11/23/23 19:34 Last Infusion: 11/23/23 21:12 Dose: Infused Documented By: Admin: 11/23/23 20:14 Dose: 200 mls/hr Documented By: PRINCE Amiodarone HCl/Dextrose (Nexterone) 150 mg in 100 mls @ 600 mls/hr IV NOW ONE; Protocol Stop: 11/23/23 22:13 Last Infusion: 11/23/23 22:41 Dose: Infused Documented By: Admin: 11/23/23 22:30 Dose: 600 mls/hr Documented By: PRINCE Cefepime HCl 2 gm/ Sodium (Chloride) 100 mls @ 200 mls/hr IV Q12H [facility] Last Admin: 11/24/23 01:47 Dose: Not Given Documented By: PRINCE Cefepime HCl 2 gm/ Sodium (Chloride) 100 mls @ 200 mls/hr IV Q12H [facility] Last Infusion: 11/24/23 20:51 Dose: Infused Documented By: Admin: 11/24/23 20:21 Dose: 200 mls/hr Documented By: WAYNE Vancomycin HCl (Vancomycin) 1,000 mg in 200 mls @ 200 mls/hr IV NOW ONE Stop: 11/24/23 02:59 Last Infusion: 11/24/23 03:05 Dose: Infused Documented By: Admin: 11/24/23 01:57 Dose: 200 mls/hr Documented By: PRINCE Vancomycin HCl (Vancomycin) 1,250 mg in 250 mls @ 166.667 mls/hr IV Q24H [facility] Last Infusion: 11/24/23 21:39 Dose: Infused Documented By: Admin: 11/24/23 20:09 Dose: 166.667 mls/hr Documented By: WAYNE Melatonin (Melatonin 3 Mg Tablet) 3 mg PO BEDTIME [facility] Last Admin: 11/24/23 21:18 Dose: 3 mg Documented By: WAYNE Metoprolol Succinate (Metoprolol Er 25 Mg Tablet) 37.5 mg PO BID [facility] Last Admin: 11/24/23 20:58 Dose: 37.5 mg Documented By: Admin: 11/24/23 20:54 Dose: 37.5 mg Documented By: Admin: 11/24/23 08:35 Dose: 37.5 mg Documented By: Admin: 11/23/23 22:26 Dose: 37.5 mg Documented By: PRINCE Rivaroxaban (Rivaroxaban 10 Mg Tablet) 20 mg PO NOW ONE Stop: 11/23/23 22:05 Last Admin: 11/23/23 22:26 Dose: 20 mg Documented By: PRINCE Vancomycin HCl (Vancomycin Per Pharmacy) 1 request MIS NOW [facility] Vital Signs Vital signs: Vital Signs - 8 hr 11/25/23 00:00 11/25/23 00:00 11/25/23 00:30 Temperature Pulse Rate 115 H 114 H Respiratory Rate 22 19 Blood Pressure 124/64 Pulse Oximetry 94 95 Oxygen Delivery Method Nasal Cannula Nasal Cannula Oxygen Flow Rate 2 2 11/25/23 00:30 11/25/23 01:00 11/25/23 01:00 Temperature Pulse Rate 110 H Respiratory Rate 19 Blood Pressure 108/65 119/71 Pulse Oximetry 95 Oxygen Delivery Method Nasal Cannula Oxygen Flow Rate 2 11/25/23 01:30 11/25/23 01:30 Temperature 98.3 F Pulse Rate 129 H Respiratory Rate 19 Blood Pressure 105/65 Pulse Oximetry 93 Oxygen Delivery Method Nasal Cannula Oxygen Flow Rate 3 <Harshad Burns MD - Last Filed: 11/25/23 07:59> Orders Ordered: Discontinued Medications Acetaminophen (Acetaminophen 325 Mg Tablet) 650 mg PO Q6H PRN PRN Reason: Pain, Mild (1-3) Amiodarone HCl (Amiodarone 200 Mg Tablet) 100 mg PO BID [facility] Last Admin: 11/24/23 20:54 Dose: 100 mg Documented By: Admin: 11/24/23 08:35 Dose: 100 mg Documented By: Admin: 11/23/23 22:25 Dose: 100 mg Documented By: PRINCE Aspirin (Aspirin 81 Mg Chew Tab) 324 mg PO NOW ONE Stop: 11/23/23 14:01 Last Admin: 11/23/23 14:56 Dose: Not Given Documented By: JAZLYN Enoxaparin Sodium (Enoxaparin 40 Mg/0.4 Ml Syringe) 75 mg SUBCUT BID [facility] Last Admin: 11/24/23 21:02 Dose: 75 mg Documented By: WAYNE Furosemide (Furosemide 40 Mg/4 Ml Vial) 40 mg IV NOW ONE Stop: 11/23/23 14:51 Last Admin: 11/23/23 15:17 Dose: 40 mg Documented By: JAZLYN Furosemide (Furosemide 40 Mg/4 Ml Vial) 60 mg IV NOW ONE Stop: 11/23/23 22:13 Last Admin: 11/23/23 22:34 Dose: 60 mg Documented By: PRINCE Cefepime HCl 2 gm/ Sodium (Chloride) 100 mls @ 200 mls/hr IV NOW ONE Stop: 11/23/23 18:36 Last Infusion: 11/23/23 20:45 Dose: Infused Documented By: Admin: 11/23/23 20:11 Dose: 200 mls/hr Documented By: PRINCE Vancomycin HCl (Vancomycin) 1,000 mg in 200 mls @ 200 mls/hr IV NOW ONE Stop: 11/23/23 19:34 Last Infusion: 11/23/23 21:12 Dose: Infused Documented By: Admin: 11/23/23 20:14 Dose: 200 mls/hr Documented By: PRINCE Amiodarone HCl/Dextrose (Nexterone) 150 mg in 100 mls @ 600 mls/hr IV NOW ONE; Protocol Stop: 11/23/23 22:13 Last Infusion: 11/23/23 22:41 Dose: Infused Documented By: Admin: 11/23/23 22:30 Dose: 600 mls/hr Documented By: PRINCE Cefepime HCl 2 gm/ Sodium (Chloride) 100 mls @ 200 mls/hr IV Q12H [facility] Last Admin: 11/24/23 01:47 Dose: Not Given Documented By: PRINCE Cefepime HCl 2 gm/ Sodium (Chloride) 100 mls @ 200 mls/hr IV Q12H [facility] Last Infusion: 11/24/23 20:51 Dose: Infused Documented By: Admin: 11/24/23 20:21 Dose: 200 mls/hr Documented By: WAYNE Vancomycin HCl (Vancomycin) 1,000 mg in 200 mls @ 200 mls/hr IV NOW ONE Stop: 11/24/23 02:59 Last Infusion: 11/24/23 03:05 Dose: Infused Documented By: Admin: 11/24/23 01:57 Dose: 200 mls/hr Documented By: PRINCE Vancomycin HCl (Vancomycin) 1,250 mg in 250 mls @ 166.667 mls/hr IV Q24H [facility] Last Infusion: 11/24/23 21:39 Dose: Infused Documented By: Admin: 11/24/23 20:09 Dose: 166.667 mls/hr Documented By: WAYNE Melatonin (Melatonin 3 Mg Tablet) 3 mg PO BEDTIME [facility] Last Admin: 11/24/23 21:18 Dose: 3 mg Documented By: WAYNE Metoprolol Succinate (Metoprolol Er 25 Mg Tablet) 37.5 mg PO BID [facility] Last Admin: 11/24/23 20:58 Dose: 37.5 mg Documented By: Admin: 11/24/23 20:54 Dose: 37.5 mg Documented By: Admin: 11/24/23 08:35 Dose: 37.5 mg Documented By: Admin: 11/23/23 22:26 Dose: 37.5 mg Documented By: PRINCE Rivaroxaban (Rivaroxaban 10 Mg Tablet) 20 mg PO NOW ONE Stop: 11/23/23 22:05 Last Admin: 11/23/23 22:26 Dose: 20 mg Documented By: PRINCE Vancomycin HCl (Vancomycin Per Pharmacy) 1 request MISC NOW [facility] Vital Signs Vital signs: Vital Signs - 8 hr 11/25/23 00:00 11/25/23 00:00 11/25/23 00:30 Temperature Pulse Rate 115 H 114 H Respiratory Rate 22 19 Blood Pressure 124/64 Pulse Oximetry 94 95 Oxygen Delivery Method Nasal Cannula Nasal Cannula Oxygen Flow Rate 2 2 11/25/23 00:30 11/25/23 01:00 11/25/23 01:00 Temperature Pulse Rate 110 H Respiratory Rate 19 Blood Pressure 108/65 119/71 Pulse Oximetry 95 Oxygen Delivery Method Nasal Cannula Oxygen Flow Rate 2 11/25/23 01:30 11/25/23 01:30 Temperature 98.3 F Pulse Rate 129 H Respiratory Rate 19 Blood Pressure 105/65 Pulse Oximetry 93 Oxygen Delivery Method Nasal Cannula Oxygen Flow Rate 3 MDM - Arrhythmia/Palpitations <Meena Dunaway, DO - Last Filed: 11/26/23 06:51> Lab Data 11/24/23 11:15 11/24/23 11:15 Labs: Lab Results 11/23/23 11/23/23 11/24/23 Range/Units 14:14 16:57 11:15 WBC 70.8 H* 82.1 H* (4.5-11.0) X10^3/uL RBC 2.72 L 2.90 L (4.5-5.9) X10^6/uL Hgb 8.1 L 8.5 L (13.5-17.5) g/dL Hct 25.6 L 27.5 L (41-53) % MCV 94.0 94.6 (80-100) fL MCH 29.8 29.3 (26-34) PG MCHC 31.7 30.9 (30-36) % RDW 17.9 H 18.2 H (11.6-14.8) % Plt Count 197 208 (150-400) X10^3/uL Neut % (Auto) Not Reportable Not Reportable Lymph % (Auto) Not Reportable Not Reportable [place] % (Auto) Not Reportable Not Reportable Eos % (Auto) Not Reportable Not Reportable Baso % (Auto) Not Reportable Not Reportable Lymph # (Auto) Not Reportable Not Reportable [place] # (Auto) Not Reportable Not Reportable Baso # (Auto) Not Reportable Not Reportable Total Counted 100 200 Seg Neutrophils % 52.0 49.0 (38-70) % Band Neutrophils % 11.0 H 3.0 (3-7) % Lymphocytes % (Manual) 8.0 L 8.0 L (25-45) % Atypical Lymphs % 1.0 H ( - 0) % Monocytes % (Manual) 25.0 H 36.5 H (2-11) % Metamyelocytes % 1.0 H (-0) % Myelocytes % 0.5 H (-0) % Blast Cells % 4.0 H 1.0 H (-0) % Neutrophils # (Manual) 44431 H 90031 H (2313-6122) /uL RBC Morphology See below See below Anisocytosis 1+ H 1+ H PT 32.4 H (9.4-12.5) SECONDS INR 2.8 H (0.9-1.3) APTT 49 H (25.1-36.5) SECONDS Sodium 132 L 137 (137-145) mmol/L Potassium 4.0 3.8 (3.4-5.1) mmol/L Chloride 100 98 (98-107) mmol/L Carbon Dioxide 22 23 (22-32) mmol/L BUN 16 17 (9-20) mg/dL Creatinine 1.49 H 1.65 H (0.66-1.25) mg/dL Estimated GFR 47 L 41 L (>60) mL/min BUN/Creatinine Ratio 10.7 10.3 (6-22) Glucose 122 H 130 H (80-110) mg/dL Calcium 8.5 8.9 (8.4-10.2) mg/dL Magnesium 2.2 (1.6-2.3) mg/dL Total Bilirubin 0.4 0.4 (0.2-1.3) mg/dL AST 37 41 (17-59) IU/L ALT 22 25 (<50) IU/L Alkaline Phosphatase 64 62 (38-126) U/L Total Creatine Kinase 78 (55-170) U/L Troponin I < 0.012 (0.01-0.034) ng/mL NT-Pro-B Natriuret Pep 4600 H (<450) pg/mL Total Protein 7.3 7.7 (6.3-8.2) g/dL Albumin 3.4 L 3.6 (3.5-5.0) g/dL Globulin 3.9 4.1 (1.7-4.1) g/dL Albumin/Globulin Ratio 0.9 L 0.9 L (1.0-2.8) Lipase 78 (23-300) U/L Fluid Color Yellow Fluid Appearance Clear Fluid RBC [id number] /uL Fld Tot Nucleated Cell 1764 /uL Fluid Polynuclear WBCs 73 % Fluid Mononuclear WBCs 26 % Fluid Eosinophils 0 % Fluid Other Cells 0 % Body Fluid Clot No clots present Imaging Data Chest x-ray: Radiologist's Impresson: PROCEDURE: XR CHEST 1V INDICATIONS: chest pain TECHNIQUE: One view of the chest was acquired. COMPARISON: [facility], , XR CHEST 2V, 09/29/2023, 10:48. FINDINGS: Surgical changes and devices: None. Lungs and pleura: Severe right basilar airspace opacity. Moderate right pleural effusion. Mild left basilar airspace opacity. Mediastinum: Mediastinal contours appear normal. Heart size is normal. Bones and chest wall: No suspicious bony lesions. Overlying soft tissues appear unremarkable. IMPRESSION: 1. Right greater than left bibasilar pneumonia. Continued plain film surveillance is recommended to ensure resolution, and to exclude underlying or central malignancy. 2. Right pleural effusion. Dictated by: Meera Vasquez M.D. on 11/23/2023 at 14:36 CX 2: Radiologist's Impresson: PROCEDURE: XR CHEST 1V INDICATIONS: post-thoracentesis TECHNIQUE: One view of the chest was acquired. COMPARISON: [facility], XR CHEST 1V, 11/23/2023, 14:16. FINDINGS: Surgical changes and devices: None. Lungs and pleura: Persistent small to moderate right pleural effusion and elevation of right hemidiaphragm is seen. Trace left pleural effusion is also likely present. Bibasilar small infiltrate/atelectasis are likely present. No gross pneumothorax. Mediastinum: Mediastinal contours appear normal. Heart size is normal. Bones and chest wall: No suspicious bony lesions. Overlying soft tissues appear unremarkable. IMPRESSION: Persistent small to moderate right pleural effusion and trace left pleural effusion elevation of right hemidiaphragm and bibasilar small infiltrate versus atelectasis. No gross pneumothorax. Dictated by: Cameron Luna M.D. on 11/23/2023 at 16:53 ECG Data Interpretation: Atrial fibrillation rate [address] changes similar to previous EKGs MDM Narrative Medical decision making narrative: Patient 82-year-old male presents today with some increasing shortness of breath and what he thought was his AFib. His rate is mostly controlled. He is requiring 1-2 L of oxygen but does not have any obvious respiratory distress. He has been afebrile Blood work reviewed WBC 70.8 up from previously 40.9, hemoglobin 8.1, hematocrit 25.6, platelets 197, sodium 132, potassium 4.0, chloride 100, bicarb 22, BUN 16, creatinine 0.49 which is stable, BNP 4600 troponin undetectable Chest x-ray showed a right pleural effusion with probable bibasilar pneumonia EKG reviewed Patient not previously requiring oxygen requiring 1-2 L with a worsening right pleural effusion. He does have an elevated BNP in AFib he was given 1 dose of Lasix which does help but still requiring oxygen. Radiology ultrasound-guided thoracentesis pulled 150 cc of gross pus off right lung but unable drain anything further. Concern for loculated effusion and empyema. 1810: Dr. Ramirez on-call surgery updated on patient's need for probable chest tube recommends putting and chest tube may need tPA to help break up effusion 1814: Dr. Shaikh on-call hospitalist updated patient's symptoms test results recommends patient be transferred for pulmonary and possibly a VATS procedure. [facility] consulted since he was discharged from there yesterday currently they are boarding 50 people and recommend that patient be transferred to another appropriate facility unless needing a speciality Loretta Shaikh at [facility] has been contacted Patient is signed out to Dr. Murphy <Noreen Dorantes MD - Last Filed: 11/25/23 05:37> Lab Data Labs: Lab Results 11/23/23 11/23/23 11/24/23 Range/Units 14:14 16:57 11:15 WBC 70.8 H* 82.1 H* (4.5-11.0) X10^3/uL RBC 2.72 L 2.90 L (4.5-5.9) X10^6/uL Hgb 8.1 L 8.5 L (13.5-17.5) g/dL Hct 25.6 L 27.5 L (41-53) % MCV 94.0 94.6 (80-100) fL MCH 29.8 29.3 (26-34) PG MCHC 31.7 30.9 (30-36) % RDW 17.9 H 18.2 H (11.6-14.8) % Plt Count 197 208 (150-400) X10^3/uL Neut % (Auto) Not Reportable Not Reportable Lymph % (Auto) Not Reportable Not Reportable [place] % (Auto) Not Reportable Not Reportable Eos % (Auto) Not Reportable Not Reportable Baso % (Auto) Not Reportable Not Reportable Lymph # (Auto) Not Reportable Not Reportable [place] # (Auto) Not Reportable Not Reportable Baso # (Auto) Not Reportable Not Reportable Total Counted 100 200 Seg Neutrophils % 52.0 49.0 (38-70) % Band Neutrophils % 11.0 H 3.0 (3-7) % Lymphocytes % (Manual) 8.0 L 8.0 L (25-45) % Atypical Lymphs % 1.0 H ( - 0) % Monocytes % (Manual) 25.0 H 36.5 H (2-11) % Metamyelocytes % 1.0 H (-0) % Myelocytes % 0.5 H (-0) % Blast Cells % 4.0 H 1.0 H (-0) % Neutrophils # (Manual) 52607 H 16200 H (5259-8390) /uL RBC Morphology See below See below Anisocytosis 1+ H 1+ H PT 32.4 H (9.4-12.5) SECONDS INR 2.8 H (0.9-1.3) APTT 49 H (25.1-36.5) SECONDS Sodium 132 L 137 (137-145) mmol/L Potassium 4.0 3.8 (3.4-5.1) mmol/L Chloride 100 98 (98-107) mmol/L Carbon Dioxide 22 23 (22-32) mmol/L BUN 16 17 (9-20) mg/dL Creatinine 1.49 H 1.65 H (0.66-1.25) mg/dL Estimated GFR 47 L 41 L (>60) mL/min BUN/Creatinine Ratio 10.7 10.3 (6-22) Glucose 122 H 130 H (80-110) mg/dL Calcium 8.5 8.9 (8.4-10.2) mg/dL Magnesium 2.2 (1.6-2.3) mg/dL Total Bilirubin 0.4 0.4 (0.2-1.3) mg/dL AST 37 41 (17-59) IU/L ALT 22 25 (<50) IU/L Alkaline Phosphatase 64 62 (38-126) U/L Total Creatine Kinase 78 (55-170) U/L Troponin I < 0.012 (0.01-0.034) ng/mL NT-Pro-B Natriuret Pep 4600 H (<450) pg/mL Total Protein 7.3 7.7 (6.3-8.2) g/dL Albumin 3.4 L 3.6 (3.5-5.0) g/dL Globulin 3.9 4.1 (1.7-4.1) g/dL Albumin/Globulin Ratio 0.9 L 0.9 L (1.0-2.8) Lipase 78 (23-300) U/L Fluid Color Yellow Fluid Appearance Clear Fluid RBC [id number] /uL Fld Tot Nucleated Cell 1764 /uL Fluid Polynuclear WBCs 73 % Fluid Mononuclear WBCs 26 % Fluid Eosinophils 0 % Fluid Other Cells 0 % Body Fluid Clot No clots present MDM Narrative Medical decision making narrative: Patient 82-year-old male presents today with some increasing shortness of breath and what he thought was his AFib. His rate is mostly controlled. He is requiring 1-2 L of oxygen but does not have any obvious respiratory distress. He has been afebrile Blood work reviewed WBC: 70.8 up from previously 40.9, hemoglobin 8.1, hematocrit 25.6, platelets 197, Chemistries: sodium 132, potassium 4.0, chloride 100, bicarb 22, BUN 16, creatinine 0.49 which is stable, BNP 4600 troponin undetectable Lactic acid is 0.8 Chest x-ray showed a right pleural effusion with probable bibasilar pneumonia EKG reviewed Pleural fluid obtained by Interventional Radiology of the right effusion shows clear yellow fluid, red blood cell total is 1812, total nucleated cells 1764, polynuclear white blood cells at 73, fluid mononuclear white blood cells at 26. No eosinophils or other cells. No clots present Notes from [facility] with recent admit (discharged yesterday) reviewed Patient not previously requiring oxygen requiring 1-2 L with a worsening right pleural effusion. He does have an elevated BNP in AFib he was given 1 dose of Lasix which does help but still requiring oxygen. Radiology ultrasound-guided thoracentesis pulled 150 cc of gross pus off right lung but unable drain anything further. Concern for loculated effusion and empyema. 1809: Dr. Ramirez on-call surgery updated on patient's need for probable chest tube recommends putting and chest tube may need tPA to help break up effusion 1814: Dr. Shaikh on-call hospitalist updated patient's symptoms test results recommends patient be transferred for pulmonary and possibly a VATS procedure. [facility] consulted since he was discharged from there yesterday currently they are boarding 50 people and recommend that patient be transferred to another appropriate facility unless needing a speciality Loretta Shaikh at [facility] has been contacted Patient is signed out to Dr. Dorantes Care is accepted. Patient is independently examined. Labs, notes and documentation as well as imaging studies are all reviewed. Home medications are ordered including his amiodarone. I have also added 150 mg of IV amiodarone for his current rapid ventricular response, heart rate still in the [address] Ribeiro, [facility], internal medicine physician. He reviewed labs, CT and overall case. His recommendation was that this gentleman would be safe to admit to an outside hospital with capacity for Cardiothoracic surgery if required. To that end, we will contact [facility]. The bed that had originally been available at [facility] is now no longer available. Will call again in the morning and continue to look for bed availability 730am Care turned over to Dr Burns November 24, 2023 at 7:00 a.m.. Katy: sign out from Dr Dorantes , patient is aware needs to transfer for Cardiothoracic surgery consult. Patient's case has been reviewed by hospitalist here as well as general surgeon. Patient did have diagnostic imaging intervention yesterday. Medications antibiotics have been started. Patient being treated for empyema. 8:00 a.m.. Patient is aware of need for transfer. No new issues or needs at this time. 10:52 a.m.. Spoke with [address], thoracic surgeon, dr watson, he will follow in consult, admit to their hospitalist. 11:15 a.m.. Spoke with hospitalist [address], Dr. Peck, he will accept patient 11:20 a.m.. Updated patient transfer acceptance. He agrees and understands need and workup for transfer 6:00 p.m.. Katy: Sign out to Dr Dorantes, white cell count did elevate. HoweverClinically no changes. Patient is still doing well. Still awaiting for bed assignment at [address] 9pm 11/24 Dr Dorantes Problems: Leukocytosis with presumed emypema. Vancomycin and cefepime continue. White blood cell count has increased from 70.8 to 82.1. Myeloproliferative disorder is part of the differential and was part of his workup with a bone marrow biopsy at [facility]. Respiratory status remains on compromised. We will continue with antibiotics. Labs ordered from morning. Chest x-ray done this afternoon does not show worsening effusion or any obvious changes Atrial fibrillation with rapid ventricular response: He was given 150 mg of IV amiodarone and continued 100 mg of b.i.d. amiodarone along with his metoprolol. His heart rate continues in the 115 range. He is on 2 L nasal cannula for oxygenation. We have discontinued his oral Xarelto and switched him to b.i.d. Lovenox with the intention that this can be discontinued should surgical intervention be suggested Congestive heart failure: Currently stable, concerns for persistent elevated heart rate Placement: Continues almost 48 hours avoiding here in the emergency department. Multiple phone calls to hospitals up and down the eye 5 cord are with calls to [facility] as well. Patient is currently accepted to [facility] however anticipated bed available equally is likely not for an additional 24 hours. Patient is aware of attempts for placement and transfer. We will continue with care of acute issues Accept to [facility], stable at time of transfer <Harshad Burns MD - Last Filed: 11/25/23 07:59> Lab Data Labs: Lab Results 11/23/23 11/23/23 11/24/23 Range/Units 14:14 16:57 11:15 WBC 70.8 H* 82.1 H* (4.5-11.0) X10^3/uL RBC 2.72 L 2.90 L (4.5-5.9) X10^6/uL Hgb 8.1 L 8.5 L (13.5-17.5) g/dL Hct 25.6 L 27.5 L (41-53) % MCV 94.0 94.6 (80-100) fL MCH 29.8 29.3 (26-34) PG MCHC 31.7 30.9 (30-36) % RDW 17.9 H 18.2 H (11.6-14.8) % Plt Count 197 208 (150-400) X10^3/uL Neut % (Auto) Not Reportable Not Reportable Lymph % (Auto) Not Reportable Not Reportable [place] % (Auto) Not Reportable Not Reportable Eos % (Auto) Not Reportable Not Reportable Baso % (Auto) Not Reportable Not Reportable Lymph # (Auto) Not Reportable Not Reportable [place] # (Auto) Not Reportable Not Reportable Baso # (Auto) Not Reportable Not Reportable Total Counted 100 200 Seg Neutrophils % 52.0 49.0 (38-70) % Band Neutrophils % 11.0 H 3.0 (3-7) % Lymphocytes % (Manual) 8.0 L 8.0 L (25-45) % Atypical Lymphs % 1.0 H ( - 0) % Monocytes % (Manual) 25.0 H 36.5 H (2-11) % Metamyelocytes % 1.0 H (-0) % Myelocytes % 0.5 H (-0) % Blast Cells % 4.0 H 1.0 H (-0) % Neutrophils # (Manual) 44086 H 66462 H (8034-2606) /uL RBC Morphology See below See below Anisocytosis 1+ H 1+ H PT 32.4 H (9.4-12.5) SECONDS INR 2.8 H (0.9-1.3) APTT 49 H (25.1-36.5) SECONDS Sodium 132 L 137 (137-145) mmol/L Potassium 4.0 3.8 (3.4-5.1) mmol/L Chloride 100 98 (98-107) mmol/L Carbon Dioxide 22 23 (22-32) mmol/L BUN 16 17 (9-20) mg/dL Creatinine 1.49 H 1.65 H (0.66-1.25) mg/dL Estimated GFR 47 L 41 L (>60) mL/min BUN/Creatinine Ratio 10.7 10.3 (6-22) Glucose 122 H 130 H (80-110) mg/dL Calcium 8.5 8.9 (8.4-10.2) mg/dL Magnesium 2.2 (1.6-2.3) mg/dL Total Bilirubin 0.4 0.4 (0.2-1.3) mg/dL AST 37 41 (17-59) IU/L ALT 22 25 (<50) IU/L Alkaline Phosphatase 64 62 (38-126) U/L Total Creatine Kinase 78 (55-170) U/L Troponin I < 0.012 (0.01-0.034) ng/mL NT-Pro-B Natriuret Pep 4600 H (<450) pg/mL Total Protein 7.3 7.7 (6.3-8.2) g/dL Albumin 3.4 L 3.6 (3.5-5.0) g/dL Globulin 3.9 4.1 (1.7-4.1) g/dL Albumin/Globulin Ratio 0.9 L 0.9 L (1.0-2.8) Lipase 78 (23-300) U/L Fluid Color Yellow Fluid Appearance Clear Fluid RBC [id number] /uL Fld Tot Nucleated Cell 1764 /uL Fluid Polynuclear WBCs 73 % Fluid Mononuclear WBCs 26 % Fluid Eosinophils 0 % Fluid Other Cells 0 % Body Fluid Clot No clots present ECG Data Interpretation: Atrial fibrillation rate [address] changes similar to previous EKGs MDM Narrative Medical decision making narrative: Patient 82-year-old male presents today with some increasing shortness of breath and what he thought was his AFib. His rate is mostly controlled. He is requiring 1-2 L of oxygen but does not have any obvious respiratory distress. He has been afebrile Blood work reviewed WBC: 70.8 up from previously 40.9, hemoglobin 8.1, hematocrit 25.6, platelets 197, Chemistries: sodium 132, potassium 4.0, chloride 100, bicarb 22, BUN 16, creatinine 0.49 which is stable, BNP 4600 troponin undetectable Lactic acid is 0.8 Chest x-ray showed a right pleural effusion with probable bibasilar pneumonia EKG reviewed Pleural fluid obtained by Interventional Radiology of the right effusion shows clear yellow fluid, red blood cell total is 1812, total nucleated cells 1764, polynuclear white blood cells at 73, fluid mononuclear white blood cells at 26. No eosinophils or other cells. No clots present Notes from [facility] with recent admit (discharged yesterday) reviewed Patient not previously requiring oxygen requiring 1-2 L with a worsening right pleural effusion. He does have an elevated BNP in AFib he was given 1 dose of Lasix which does help but still requiring oxygen. Radiology ultrasound-guided thoracentesis pulled 150 cc of gross pus off right lung but unable drain anything further. Concern for loculated effusion and empyema. 1809: Dr. Ramirez on-call surgery updated on patient's need for probable chest tube recommends putting and chest tube may need tPA to help break up effusion 1814: Dr. Shaikh on-call hospitalist updated patient's symptoms test results recommends patient be transferred for pulmonary and possibly a VATS procedure. [facility] consulted since he was discharged from there yesterday currently they are boarding 50 people and recommend that patient be transferred to another appropriate facility unless needing a speciality Loretta Shaikh at [facility] has been contacted Patient is signed out to Dr. Dorantes Care is accepted. Patient is independently examined. Labs, notes and documentation as well as imaging studies are all reviewed. Home medications are ordered including his amiodarone. I have also added 150 mg of IV amiodarone for his current rapid ventricular response, heart rate still in the [address] Ribeiro, [facility], internal medicine physician. He reviewed labs, CT and overall case. His recommendation was that this gentleman would be safe to admit to an outside hospital with capacity for Cardiothoracic surgery if required. To that end, we will contact [facility]. The bed that had originally been available at [facility] is now no longer available. Will call again in the morning and continue to look for bed availability 730am Care turned over to Dr Burns November 24, 2023 at 7:00 a.m.. Katy: sign out from Dr Laursen , patient is aware needs to transfer for Cardiothoracic surgery consult. Patient's case has been reviewed by hospitalist here as well as general surgeon. Patient did have diagnostic imaging intervention yesterday. Medications antibiotics have been started. Patient being treated for empyema. 8:00 a.m.. Patient is aware of need for transfer. No new issues or needs at this time. 10:52 a.m.. Spoke with [address], thoracic surgeon, dr watson, he will follow in consult, admit to their hospitalist. 11:15 a.m.. Spoke with hospitalist [address], Dr. Peck, he will accept patient 11:20 a.m.. Updated patient transfer acceptance. He agrees and understands need and workup for transfer 6:00 p.m.. [place]: Sign out to Dr Dorantes, white cell count did elevate. HoweverClinically no changes. Patient is still doing well. Still awaiting for bed assignment at [address] Discharge Plan Departure [facility] Clinical Impression: Empyema lung, Atrial fibrillation with RVR Congestive heart failure Qualifiers: Heart failure type: unspecified Heart failure chronicity: unspecified Qualified Code(s): I50.9 - Heart failure, unspecified Prescriptions: No Action Magnesium Citrate 400 mg 1 tab PO DAILY finasteride 5 mg tablet 5 mg PO 3XW Qty: 36 3RF amiodarone 200 mg tablet 100 mg PO BID metoprolol succinate 25 mg tablet extended release 24 hr 37.5 mg PO BID Xarelto 20 mg tablet 20 mg PO DAILY Xarelto 20 mg tablet 20 mg PO DAILY Referrals: Adrian London MD [Primary Care Provider] -
[2023-11-23 14:34] LABS: INR 2.8 (0.9-1.3); Prothrombin Time 32.4 SECONDS (9.4-12.5)
[2023-11-23 14:37] LABS: PTT Partial Thromboplastin Tim 49 SECONDS (25.1-36.5)
[2023-11-23 14:42] LABS: Alanine Aminotransferase 22 IU/L (<50); Albumin 3.4 g/dL (3.5-5.0); Albumin Globulin Ratio 0.9 (1.0-2.8); Alkaline Phosphatase 64 U/L (38-126); Aspartate Aminotransferase 37 IU/L (17-59); BUN Creatinine Ratio 10.7 (6-22); Bilirubin Total 0.4 mg/dL (0.2-1.3); Blood Urea Nitrogen 16 mg/dL (9-20); Calcium 8.5 mg/dL (8.4-10.2); Carbon Dioxide 22 mmol/L (22-32); Chloride 100 mmol/L (98-107); Creatine Kinase 78 U/L (55-170); Estimated Glomerular Filt Rate 47 mL/min (>60); Globulin 3.9 g/dL (1.7-4.1); Glucose 122 mg/dL (80-110); HEMOLYSIS < 15 (0-50); Lipase 78 U/L (23-300); Magnesium 2.2 mg/dL (1.6-2.3); Sodium 132 mmol/L (137-145); Total Protein 7.3 g/dL (6.3-8.2)
[2023-11-23 14:50] LABS: NT-proBNP (BNP-Adult 18+) 4600 pg/mL (<450)
[2023-11-23 14:53] LABS: Hematocrit 25.6 % (41-53); Hemoglobin 8.1 g/dL (13.5-17.5); Mean Corpuscular HGB Conc 31.7 % (30-36); Mean Corpuscular Hemoglobin 29.8 PG (26-34); Platelet Count 197 X10^3/uL (150-400); Red Blood Cell Count 2.72 X10^6/uL (4.5-5.9); Red Cell Distribution Width 17.9 % (11.6-14.8); Troponin I < 0.012 ng/mL (0.01-0.034)
[2023-11-23 14:57] LABS: Add Manual Diff / Slide Review YES; White Blood Cell Count 70.8 X10^3/uL (4.5-11.0)
[2023-11-23 15:06] LABS: Neutrophils Absolute Manual 44604 /uL (3000-5900); Total Cells Counted 100
[2023-11-23 15:09] LABS: Anisocytosis 1+
[2023-11-23] MEDS: FUROSEMIDE 40 MG/4 ML VIAL IV (15:17)
--- NOTE | 2023-11-23 15:32 | DI.RAD.S_ITS ---
PROCEDURE: XR CHEST 1V INDICATIONS: post-thoracentesis TECHNIQUE: One view of the chest was acquired. COMPARISON: [facility], CR, XR CHEST 1V, 11/23/2023, 14:16. FINDINGS: Surgical changes and devices: None. Lungs and pleura: Persistent small to moderate right pleural effusion and elevation of right hemidiaphragm is seen. Trace left pleural effusion is also likely present. Bibasilar small infiltrate/atelectasis are likely present. No gross pneumothorax. Mediastinum: Mediastinal contours appear normal. Heart size is normal. Bones and chest wall: No suspicious bony lesions. Overlying soft tissues appear unremarkable. IMPRESSION: Persistent small to moderate right pleural effusion and trace left pleural effusion elevation of right hemidiaphragm and bibasilar small infiltrate versus atelectasis. No gross pneumothorax. Dictated by: Cameron Luna M.D. on 11/23/2023 at 16:53 Approved by: Cameron Luna M.D. on 11/23/2023 at 16:57
--- NOTE | 2023-11-23 15:32 | DI.US.S_ITS ---
PROCEDURE: US THORACENTESIS INDICATIONS: RIGHT PLEURAL EFFUSION - DIAGNOSTIC/THERAPEUTIC. TECHNIQUE: The indications, alternatives, benefits, risks, and complications of the procedure were explained to the patient. Written informed consent was obtained and placed in the chart. The chest was examined sonographically, and an appropriate site was chosen for thoracentesis. The skin was prepared and draped in the usual sterile fashion, and 1% lidocaine was infiltrated from the skin down through the pleural surface. A 19-gauge catheter-covered needle was then introduced into the pleural space, the catheter was advanced and the needle was withdrawn, and thereafter pleural fluid was aspirated. The catheter was then removed and a dressing was applied. COMPARISON: None. FINDINGS: Access site: Right hemithorax. Needle: One-Step centesis catheter with introducer needle. Fluid volume and description: 110 cc of yellow fluid with some significant debris/pus Fluid sent for diagnostic testin cc Medications: 1% lidocaine for local anaesthesia. Complications: None; post-procedural chest radiograph is pending to assess for pneumothorax. IMPRESSION: Successful ultrasound-guided thoracentesis. Dictated by: Isael Huerta M.D. on 11/24/2023 at 16:46 Approved by: Isael Huerta M.D. on 11/24/2023 at 16:46
--- NOTE | 2023-11-23 15:56 | PATH_ITS ---
Note [facility] Accession Number: [id number] TESTS RESULT FLAG UNITS REF RANGE LAB Clinician Provided Cytology Information No. of containers..01 Other (Miscellaneous) Source: RIGHT PLEURAL SPACE DIAGNOSIS: RIGHT PLEURAL SPACE, THORACENTESIS. NEGATIVE FOR MALIGNANT CELLS. FEW MESOTHELIAL CELLS IN A BACKGROUND OF MIXED INFLAMMATORY CELLS. THIS INTERPRETATION INCLUDES EVALUATION OF A CELL BLOCK. Pathologist ICD10: J90 Signed out by: Zachariah Rose MD, Pathologist NPI- [id number] Performed by: Logan Son, Supervisor Maintenance ([facility]) Gross description: 55 CC, YELLOW, CLOUDY RECEIVED: FRESH IN ORANGE CAP CONTAINER.VO /VDU 11/24/2023 0626 Local FLAG LEGEND: L-Low Normal,H-High Normal,LL-Alert Low,HH-Alert High <-Panic Low,>-Panic High,A-Abnormal,AA-Critical Abnormal Performed at: 01 =Z [facility] [address], [place] [address] Joby Gabriel MD, Performed at: [facility] [address], [place], [place] [id number] MD Joby Gabriel MD Phone: [phone]
[2023-11-23 17:38] LABS: Body Fluid Tot Nucleated Cells 1764 /uL
[2023-11-23 17:44] LABS: Body Fluid Appearance CLEAR; Body Fluid Clotted? NO CLOTS PRESENT; Body Fluid Color YELLOW
[2023-11-23 17:53] LABS: Eosinophils Body Fluid 0 %; Mononuclear WBC Body Fluid 26 %; Other Cells Body Fluid 0 %; Polynuclear WBC Body Fluid 73 %
--- NOTE | 2023-11-23 18:35 | DI.CT.S_ITS ---
PROCEDURE: CT CHEST W CON INDICATIONS: Empyema TECHNIQUE: After the administration of intravenous contrast, 5 mm thick sections acquired from the pulmonary apices to the posterior costophrenic angles. 1 mm axial lung, 5 mm thick coronal and sagittal reformats and 7 mm axial MIP were acquired. For radiation dose reduction, the following was used: automated exposure control, adjustment of mA and/or kV according to patient size. COMPARISON: [facility], CR, XR CHEST 1V, 11/23/2023, 16:44. FINDINGS: Image quality: Diagnostic. Lower Neck: No enlarged lymph nodes. Thyroid: No thyroid nodules which require sonographic follow up, per consensus guidelines. Axillae: No enlarged lymph nodes. Chest Wall: Unremarkable. Bones: Unremarkable. Lungs and Pleura: Moderate to large right pleural effusion with complete atelectasis of right lower lobe and near complete atelectasis of right middle lobe. Subsegmental atelectasis in posterior aspect of right upper lobe is also seen. There is small left pleural effusion. No pneumothorax. Central and peripheral airway is patent. Scattered atelectasis in posterior and lateral periphery of left lung field is seen. Heart: Heart size is enlarged. Trace pericardial effusion is seen. Thoracic Vessels: The aorta and pulmonary arteries demonstrate normal size. Mediastinum and Sarah: Enlarged precarinal lymph no measures 1.2 cm in size is seen. No gross hilar lymphadenopathy. Esophagus: No wall thickening. No hiatal hernia. Upper Abdomen: Visualized upper abdomen solid organs and bowel loops appear normal. IMPRESSION: 1. Moderate to large right pleural effusion with complete atelectasis of right middle and lower lobes and segmental atelectasis in posterior aspect of right upper lobe. Underlying pulmonary infiltrate cannot be excluded. 2. Small left pleural effusion with scattered atelectasis in periphery of left lung field. No pneumothorax. Airway is patent. 3. Mild cardiomegaly with trace pericardial effusion. Prominent size of precarinal lymph no which may be reactive. Dictated by: Cameron Luna M.D. on 11/23/2023 at 19:17 Approved by: Cameron Luna M.D. on 11/23/2023 at 19:22
[2023-11-23] MEDS: CEFEPIME 2 GM in SODIUM CHLORIDE 0.9% 100 ML IV (20:11)
[2023-11-23] MEDS: VANCOMYCIN 1,000 MG/200 ML PIGGYBACK 200 MG IV (20:14)
[2023-11-23] MEDS: AMIODARONE 200 MG TABLET 100 MG PO (22:25)
[2023-11-23] MEDS: RIVAROXABAN 10 MG TABLET 20 MG PO (22:26)
[2023-11-23] MEDS: METOPROLOL ER 25 MG TABLET 37.5 MG PO (22:26)
[2023-11-23] MEDS: AMIODARONE 150 MG/100 ML PIGGYBACK 600 MG IV (22:30)
[2023-11-23] MEDS: FUROSEMIDE 40 MG/4 ML VIAL 60 MG IV (22:34)
[2023-11-24] VITALS (52 sets, daily range): BP systolic 97–163; BP diastolic 56–107; PULSE 102–130; RESP 17–38; O2SAT 92–97; BMI 22.4
[2023-11-24] MEDS: VANCOMYCIN 1,000 MG/200 ML PIGGYBACK 200 MG IV (01:57)
--- NOTE | 2023-11-24 06:25 | PC.NURSE ---
CUSTODIAL FOREMAN note: 0612 Spoke to Colton at [facility]. Didn't have a bed related to nurses calling out and being short staff. They are still going to try to see if they can admit. Will update RN and doctor.
[2023-11-24] MEDS: METOPROLOL ER 25 MG TABLET 37.5 MG PO ×3 (08:35→20:58)
[2023-11-24] MEDS: AMIODARONE 200 MG TABLET 100 MG PO ×2 (08:35→20:54)
--- NOTE | 2023-11-24 08:43 | PC.NURSE ---
Patient eating breakfast. Pt reports that his R eye hurts when he moves it to the R. Pupils are PERRLA. R eye sclera is red. This RN will place saline eye drops in pt eye after breakfast and notified primary RN of patient eye report.
--- NOTE | 2023-11-24 10:31 | PC.NURSE ---
Hospital Call List for patient transfer 08- [facility], spoke to Gio, facility is at capacity, patient is on wait list 08- [facility], spoke with RN at transfer station, facility is over capacity, patient is on wait list
--- NOTE | 2023-11-24 10:33 | PC.NURSE ---
right lungs diminished at the bases. r>l side.
[2023-11-24 11:33] LABS: Hematocrit 27.5 % (41-53); Hemoglobin 8.5 g/dL (13.5-17.5); Mean Corpuscular HGB Conc 30.9 % (30-36); Mean Corpuscular Hemoglobin 29.3 PG (26-34); Mean Corpuscular Volume 94.6 fL (80-100); Platelet Count 208 X10^3/uL (150-400); Red Cell Distribution Width 18.2 % (11.6-14.8)
[2023-11-24 11:39] LABS: Add Manual Diff / Slide Review YES; Alanine Aminotransferase 25 IU/L (<50); Albumin 3.6 g/dL (3.5-5.0); Albumin Globulin Ratio 0.9 (1.0-2.8); Alkaline Phosphatase 62 U/L (38-126); Aspartate Aminotransferase 41 IU/L (17-59); BUN Creatinine Ratio 10.3 (6-22); Bilirubin Total 0.4 mg/dL (0.2-1.3); Blood Urea Nitrogen 17 mg/dL (9-20); Calcium 8.9 mg/dL (8.4-10.2); Carbon Dioxide 23 mmol/L (22-32); Chloride 98 mmol/L (98-107); Estimated Glomerular Filt Rate 41 mL/min (>60); Globulin 4.1 g/dL (1.7-4.1); Glucose 130 mg/dL (80-110); HEMOLYSIS < 15 (0-50); Potassium 3.8 mmol/L (3.4-5.1); Sodium 137 mmol/L (137-145); Total Protein 7.7 g/dL (6.3-8.2); White Blood Cell Count 82.1 X10^3/uL (4.5-11.0)
[2023-11-24 12:08] LABS: Monocytes Percent Manual 36.5 % (2-11); Myelocytes Percent 0.5 % (-0); Neutrophils Absolute Manual 42692 /uL (3000-5900); Total Cells Counted 200
[2023-11-24 12:14] LABS: Anisocytosis 1+
--- NOTE | 2023-11-24 19:23 | DI.RAD.S_ITS ---
PROCEDURE: XR CHEST 1V INDICATIONS: Flu like symptoms TECHNIQUE: One view of the chest was acquired. COMPARISON: [facility], CR, XR CHEST 1V, 11/23/2023, 16:44. FINDINGS: Surgical changes and devices: None. Lungs and pleura: No pneumothorax. Persistent moderate right pleural effusion with subjacent atelectasis. Probable trace left pleural effusion. Mediastinum: Mediastinal contours appear normal. Heart size is normal. Bones and chest wall: No suspicious bony lesions. Overlying soft tissues appear unremarkable. IMPRESSION: Compared to prior radiograph 11/23/2023, persistent moderate right pleural effusion with subjacent atelectasis. Persistent trace left pleural effusion Approved by: Ese Anaya M.D. on 11/24/2023 at 20:16
[2023-11-24] MEDS: VANCOMYCIN 1,250 MG/250 ML PIGGYBACK 166.667 MG IV (20:09)
[2023-11-24] MEDS: CEFEPIME 2 GM in SODIUM CHLORIDE 0.9% 100 ML IV (20:21)
--- NOTE | 2023-11-24 20:50 | PC.NURSE ---
Called [facility] to discuss case. Spoke w/ Liliana GRIGGS. She will investigate and call back.
--- NOTE | 2023-11-24 20:54 | PC.NURSE ---
Addendum entered by Jennifer Rae CNA 11/24/23 23:22: Spoke to Page @ [phone] regarding an update on the telebed placement. She said that they do now have a bed available and are currently working on cleaning and making the room available and as soon as that is done, Page will call back with the room and bed placement Original Note: Called [place] @1915 regarding bed placement. Gem stated that they are currently waiting for a telebed and transferred me to bed placement to get an estimate on when a bed might become available. After being on hold they hung up on me. I called back again and talked with Chen. Chen stated that they are waiting for a telebed and do not have an ETA on when a bed will become available. [facility] is currently working on downgrading and making room for another telebed and will call back by 2300 with a follow up. If I don't hear back from [place] by 2300, they advised me to call back and ask again for another follow up regarding the conversation about making a bed available. TL
[2023-11-24] MEDS: ENOXAPARIN 40 MG/0.4 ML SYRINGE 75 MG SUBCUT (21:02)
[2023-11-24] MEDS: MELATONIN 3 MG TABLET PO (21:18)
[2023-11-25] VITALS: BP 124/64; PULSE 115; RESP 22; O2SAT 94
[2023-11-25 00:30] VITALS: BP 108/65; PULSE 114; RESP 19; O2SAT 95
[2023-11-25 01:00] VITALS: BP 119/71; PULSE 110; RESP 19; O2SAT 95
[2023-11-25 01:30] VITALS: BP 105/65; PULSE 129; RESP 19; TEMP 36.8; O2SAT 93
== END 2023-11-25 01:50 | disposition short-term general hospital (02) ==
PROVIDERS: Emergency Medicine; Emergency Provider Emergency Medicine; PCP Internal Medicine
DX: J86.9 Pyothorax without fistula (principal); I48.20 Chronic atrial fibrillation, unspecified; I50.9 Heart failure, unspecified; R07.9 Chest pain, unspecified; Z79.01 Long term (current) use of anticoagulants
CPT/HCPCS: 32555; 36415; 71045; 71260; 80053; 82550; 83690; 83735; 83880; 84484; 85007; 85025; 85610; 85730; 87040; 87070; 87075; 87205; 89051; 93005; 93010; 96365; 96366; 96367; 96368; 96372; 96375; 96376; 99285; J0282; J0692; J1650; J1940

== ENCOUNTER 2023-12-26 15:22 | Emergency (ER) | payer MEDICARE, OTHER, SELFPAY ==
[2023-12-22 11:16] VITALS: BMI 22.4
[2023-12-26] VITALS (21 sets, daily range): BP systolic 92–121; BP diastolic 55–68; PULSE 77–103; RESP 8–25; TEMP 36.5–36.6; O2SAT 95–99; BMI 19.9
--- NOTE | 2023-12-26 16:06 | DI.RAD.S_ITS ---
PROCEDURE: XR CHEST 1V INDICATIONS: chest pain TECHNIQUE: One view of the chest was acquired. COMPARISON: [facility], CR, XR CHEST 2V, 09/29/2023, 10:48. [facility], CR, XR CHEST 1V, 11/23/2023, 14:16. [facility], CT, CT CHEST W CON, 11/23/2023, 18:45. [facility], CR, XR CHEST 1V, 11/24/2023, 19:52. FINDINGS: Surgical changes and devices: None. Lungs and pleura: Significant interval improvement in right pleural space, which previously had multiloculated large effusion in November,. However, there is a diffuse interstitial infiltrate involving much of the right lung. There are small bilateral pleural effusions. Mediastinum: Mediastinal contours appear normal. Current film suggests mild cardiomegaly. Bones and chest wall: No suspicious bony lesions. Overlying soft tissues appear unremarkable. IMPRESSION: 1. Significant improvement in right pleural fluid, now mild. 2. Development of diffuse interstitial right lung infiltrate, suggesting pneumonia. 3. Small left pleural effusion. Comment: Progress films are recommended until clear. Dictated by: Marcin Kirkland M.D. on 12/26/2023 at 16:58 Approved by: Marcin Kirkland M.D. on 12/26/2023 at 17:01
[2023-12-26 16:30] LABS: INR 1.1 (0.9-1.3); Prothrombin Time 12.9 SECONDS (9.4-12.5)
[2023-12-26 16:33] LABS: PTT Partial Thromboplastin Tim 30 SECONDS (25.1-36.5)
[2023-12-26 16:34] LABS: Alanine Aminotransferase 27 IU/L (<50); Albumin 3.5 g/dL (3.5-5.0); Alkaline Phosphatase 67 U/L (38-126); Aspartate Aminotransferase 24 IU/L (17-59); BUN Creatinine Ratio 30.1 (6-22); Bilirubin Total 0.5 mg/dL (0.2-1.3); Blood Urea Nitrogen 43 mg/dL (9-20); Calcium 8.8 mg/dL (8.4-10.2); Carbon Dioxide 20 mmol/L (22-32); Chloride 107 mmol/L (98-107); Creatine Kinase 24 U/L (55-170); Estimated Glomerular Filt Rate 49 mL/min (>60); Globulin 3.6 g/dL (1.7-4.1); Glucose 147 mg/dL (80-110); HEMOLYSIS < 15 (0-50); Lipase 237 U/L (23-300); Magnesium 1.9 mg/dL (1.6-2.3); Potassium 4.9 mmol/L (3.4-5.1); Sodium 136 mmol/L (137-145); Total Protein 7.1 g/dL (6.3-8.2)
--- NOTE | 2023-12-26 16:38 | PC.NURSE ---
Denies pain, complaining of lethargy
[2023-12-26 16:43] LABS: Hematocrit 24.8 % (41-53); Hemoglobin 8.1 g/dL (13.5-17.5); Mean Corpuscular HGB Conc 32.8 % (30-36); Mean Corpuscular Hemoglobin 31.1 PG (26-34); Mean Corpuscular Volume 94.9 fL (80-100); Red Blood Cell Count 2.62 X10^6/uL (4.5-5.9); Red Cell Distribution Width 17.7 % (11.6-14.8); White Blood Cell Count 18.4 X10^3/uL (4.5-11.0)
[2023-12-26 16:46] LABS: NT-proBNP (BNP-Adult 18+) 3080 pg/mL (<450); Troponin I < 0.012 ng/mL (0.01-0.034)
[2023-12-26 16:51] LABS: Add Manual Diff / Slide Review YES
[2023-12-26 16:52] LABS: Platelet Count 28 X10^3/uL (150-400)
[2023-12-26 16:58] LABS: Neutrophils Absolute Manual 3680 /uL (3000-5900); Total Cells Counted 100
[2023-12-26 16:59] LABS: Anisocytosis 2+; Hypersegmented Neutrophils 1+; Macrocytosis 1+
[2023-12-26 17:02] LABS: Lactate (Lactic Acid) 2.2 mmol/L (0.7-2.1)
[2023-12-26] MEDS: SODIUM CHLORIDE 0.9% 1,000 ML 1000 ML IV (17:09)
[2023-12-26 17:20] LABS: Procalcitonin 0.22 ng/mL (<0.5)
[2023-12-26 18:28] LABS: Reflexed Lactate in 2 Hours Y
--- NOTE | 2023-12-26 18:28 | ED_ITS ---
HPI - General Adult General Chief complaint: Weakness Stated complaint: low BP, sent by [employer] Time Seen by Provider: 12/26/23 16:44 Source: patient and family Mode of arrival: Ambulatory History of Present Illness HPI narrative: Patient is an 82-year-old male. Has a diagnosis of CML. He was being followed by Oncology at [facility]. Recently was discharged from the hospital after an extended stay. Had a outpatient scheduled follow-up with his air conditioning engineer today. During the air conditioning engineer visit it was noted that the patient was getting somewhat lightheaded when he was standing and was hypotensive with a systolic blood pressure in the 70s over 80s. Patient was advised to come to the emergency department further evaluation. He states currently he feels completely normal. Is not lightheaded. No chest pain. No shortness of breath. No nausea or vomiting. Has had some diarrhea persistently over the past several weeks. He has been able to take all of his medications. He has a telemedicine follow-up visit with Oncology in approximately 48 hours. Related Data Home Medications Medication Instructions Recorded Confirmed Magnesium Citrate 1 tab PO DAILY 10/20/21 12/22/23 amoxicillin 875 mg-potassium 1 tab PO BID 12/22/23 12/22/23 clavulanate 125 mg tablet digoxin 62.5 mcg (0.0625 mg) tablet 62.5 mcg PO DAILY 12/22/23 12/22/23 metoprolol succinate 100 mg 100 mg PO BID 12/22/23 12/22/23 tablet,extended release 24 hr prednisone 10 mg tablet mg PO 12/22/23 12/22/23 sulfamethoxazole 400 1 tab PO DAILY 12/22/23 12/22/23 mg-trimethoprim 80 mg tablet Previous Rx's Medication Instructions Recorded Disabled Parking #1 ea 12/22/23 Allergies Allergy/AdvReac Type Severity Reaction Status Date / Time benzonatate AdvReac Intermediate Rash Verified 12/22/23 10:28 Review of Systems Review of Systems ROS Unobtainable: All systems reviewed & are unremarkable except as noted in HPI and below Patient History Medical History 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 Brother Alzheimer's disease Grandmother No problems noted. Social History Smoking Status: Former smoker Tobacco: How many years used: 2 second hand exposure: No alcohol intake: current substance use type: does not use Smoking Status: Former smoker alcohol intake frequency: 0-2 drinks per day Substance Use Type: does not use Exam Initial Vital Signs Initial Vital Signs: Vital Signs Temperature 97.8 F 12/26/23 15:50 Pulse Rate 81 12/26/23 15:50 Respiratory Rate 18 12/26/23 15:50 Blood Pressure 115/67 12/26/23 15:50 Pulse Oximetry 98 12/26/23 15:50 Oxygen Delivery Method Room Air 12/26/23 15:50 Const General: cooperative and comfortable HENMT Head: normal to inspection and normocephalic Resp Effort & Inspection: normal respiratory effort Auscultation: clear to auscultation bilaterally Cardio Rate: regular rate Rhythm: regular rhythm GI Inspection: normal to inspection Skin General: no rashes or lesions noted Neuro General: patient alert, patient awake, patient oriented x3 and moves all extremities Extrem General: normal to inspection and capillary refill normal Course Orders Ordered: ED Orders 12/26/23 17:10 Blood Culture Stat Discontinued Medications Sodium Chloride (Normal Saline 0.9%) 1,000 mls @ 1,000 mls/hr IV BOLUS ONE Stop: 12/26/23 17:43 Last Infusion: 12/26/23 18:47 Dose: Infused Documented By: Admin: 12/26/23 17:09 Dose: 1,000 mls/hr Documented By: CELESTE Vital Signs Vital signs: Vital Signs - 8 hr 12/26/23 18:10 12/26/23 18:10 12/26/23 18:20 Temperature Pulse Rate 96 H Respiratory Rate 8 L Blood Pressure 115/64 121/60 Pulse Oximetry 98 Oxygen Delivery Method 12/26/23 18:20 12/26/23 18:30 12/26/23 18:30 Temperature Pulse Rate 95 H 89 Respiratory Rate 10 L 17 Blood Pressure 118/63 Pulse Oximetry 98 96 Oxygen Delivery Method 12/26/23 18:39 12/26/23 18:39 12/26/23 19:00 Temperature Pulse Rate 103 H 85 Respiratory Rate 25 H 10 L Blood Pressure 114/63 Pulse Oximetry 97 98 Oxygen Delivery Method 12/26/23 19:30 12/26/23 19:50 12/26/23 19:50 Temperature 97.7 F Pulse Rate 83 83 Respiratory Rate 19 20 Blood Pressure 106/55 L Pulse Oximetry 98 99 Oxygen Delivery Method Room Air Medical Decision Making Medical Records Medical records reviewed: Yes I reviewed the patient's medical records. Lab Data Lab results reviewed: Yes I reviewed the patient's lab results. 12/26/23 16:35 12/26/23 16:15 Labs: Lab Results 12/26/23 12/26/23 12/26/23 Range/Units 16:15 16:35 18:49 WBC 18.4 H (4.5-11.0) X10^3/uL RBC 2.62 L (4.5-5.9) X10^6/uL Hgb 8.1 L (13.5-17.5) g/dL Hct 24.8 L (41-53) % MCV 94.9 (80-100) fL MCH 31.1 (26-34) PG MCHC 32.8 (30-36) % RDW 17.7 H (11.6-14.8) % Plt Count 28 L* (150-400) X10^3/uL Neut % (Auto) Not Reportable Lymph % (Auto) Not Reportable Robertson % (Auto) Not Reportable Eos % (Auto) Not Reportable Baso % (Auto) Not Reportable Lymph # (Auto) Not Reportable Robertson # (Auto) Not Reportable Baso # (Auto) Not Reportable Total Counted 100 Seg Neutrophils % 17.0 L (38-70) % Band Neutrophils % 3.0 (3-7) % Lymphocytes % (Manual) 10.0 L (25-45) % Atypical Lymphs % 5.0 H ( - 0) % Monocytes % (Manual) 64.0 H (2-11) % Metamyelocytes % 1.0 H (-0) % Neutrophils # (Manual) 3680 (0086-5655) /uL Hypersegmented Neuts 1+ RBC Morphology See below Anisocytosis 2+ H Macrocytosis 1+ H PT 12.9 H (9.4-12.5) SECONDS INR 1.1 (0.9-1.3) APTT 30 (25.1-36.5) SECONDS Sodium 136 L (137-145) mmol/L Potassium 4.9 (3.4-5.1) mmol/L Chloride 107 (98-107) mmol/L Carbon Dioxide 20 L (22-32) mmol/L BUN 43 H (9-20) mg/dL Creatinine 1.43 H (0.66-1.25) mg/dL Estimated GFR 49 L (>60) mL/min BUN/Creatinine Ratio 30.1 H (6-22) Glucose 147 H (80-110) mg/dL Lactate 2.2 H 1.6 (0.7-2.1) mmol/L Calcium 8.8 (8.4-10.2) mg/dL Magnesium 1.9 (1.6-2.3) mg/dL Total Bilirubin 0.5 (0.2-1.3) mg/dL AST 24 (17-59) IU/L ALT 27 (<50) IU/L Alkaline Phosphatase 67 (38-126) U/L Total Creatine Kinase 24 L (55-170) U/L Troponin I < 0.012 (0.01-0.034) ng/mL NT-Pro-B Natriuret Pep 3080 H (<450) pg/mL Total Protein 7.1 (6.3-8.2) g/dL Albumin 3.5 (3.5-5.0) g/dL Globulin 3.6 (1.7-4.1) g/dL Albumin/Globulin Ratio 1.0 (1.0-2.8) Lipase 237 (23-300) U/L Procalcitonin 0.22 (<0.5) ng/mL Imaging Data Chest x-ray: Radiologist's Impression: PROCEDURE: XR CHEST 1V INDICATIONS: chest pain TECHNIQUE: One view of the chest was acquired. COMPARISON: [facility], CR, XR CHEST 2V, 09/29/2023, 10:48. [facility], CR, XR CHEST 1V, 11/23/2023, 14:16. [facility], CT, CT CHEST W CON, 11/23/2023, 18:45. [facility], CR, XR CHEST 1V, 11/24/2023, 19:52. FINDINGS: Surgical changes and devices: None. Lungs and pleura: Significant interval improvement in right pleural space, which previously had multiloculated large effusion in November,. However, there is a diffuse interstitial infiltrate involving much of the right lung. There are small bilateral pleural effusions. Mediastinum: Mediastinal contours appear normal. Current film suggests mild cardiomegaly. Bones and chest wall: No suspicious bony lesions. Overlying soft tissues appear unremarkable. IMPRESSION: 1. Significant improvement in right pleural fluid, now mild. 2. Development of diffuse interstitial right lung infiltrate, suggesting pneumonia. 3. Small left pleural effusion. Comment: Progress films are recommended until clear. ECG Data Attestation: I personally reviewed and interpreted this ECG as follows: Interpretation: Atrial fibrillation Ventricular rate is 71 Normal axis Normal QRS No ST T wave changes MDM Narrative Medical decision making narrative: During my initial evaluation patient's systolic blood pressure is greater than 120. He was asymptomatic. Ambulate around the emergency department without issue. He was not tachycardic. Chest x-ray shows potential infiltrate however patient clinically does not have pneumonia. I did discuss the case with on-call Oncology at [facility]. They were able to look up his prior studies and the findings on the chest x-ray today are not new. There was no indication for antibiotics. Since the patient is now asymptomatic will discharge home with instructions to keep his follow-up appointment that he has on Tuesday. No indication to change any of his medications. No indication for admission to the hospital. He was given return precautions. He expressed understanding and agreement. Discharge Plan Departure Patient Disposition: Home Clinical Impression: Diarrhea Instructions: DI for Dehydration -- Adult Activity Restrictions/Additional Instructions: Recommend that you continue to take all of your medications as directed. Keep your scheduled medical appointments to include the telemedicine appointment that you have on Tuesday. Return to the emergency department for new or worsening symptoms. Prescriptions: No Action amoxicillin-pot clavulanate 875-125 mg tablet 1 tab PO BID digoxin 62.5 mcg (0.0625 mg) tablet 62.5 mcg PO DAILY metoprolol succinate 100 mg tablet extended release 24 hr 100 mg PO BID sulfamethoxazole-trimethoprim 400-80 mg tablet 1 tab PO DAILY prednisone 10 mg tablet PO (DME) Disabled Parking See Rx Instructions .ROUTE .MEDSUPPLY Qty: 1 0RF Rx Instructions: Patient qualifies for disabled parking as per the attached form. Magnesium Citrate 400 mg 1 tab PO DAILY Referrals: Adrian London MD [Primary Care Provider] - Stand Alone Forms: Patient Portal/API
[2023-12-26 19:23] LABS: Lactate 2HR (Lactic Acid Rflx) 1.6 mmol/L (0.7-2.1)
== END 2023-12-26 20:01 | disposition home or self-care (01) ==
PROVIDERS: Emergency Medicine; Emergency Provider Emergency Medicine; PCP Internal Medicine
DX: R19.7 Diarrhea, unspecified (principal); R07.9 Chest pain, unspecified; R42 Dizziness and giddiness
CPT/HCPCS: 36415; 71045; 80053; 82550; 83605; 83690; 83735; 83880; 84145; 84484; 85007; 85025; 85610; 85730; 87040; 93005; 96360; 96361; 99284

== ENCOUNTER → 2024-01-30 08:47 | Outpatient (CLI) | payer MEDICARE, OTHER, SELFPAY ==
[2023-12-22 11:16] VITALS: BMI 22.4
--- NOTE | 2024-01-30 08:49 | DI.CT.S_ITS ---
PROCEDURE: CT CHEST HIGH RESOLUTION INDICATIONS: ILD. TECHNIQUE: Noncontrast 1.0 and 5.0 mm thick contiguous axial sections from the pulmonary apex to the posterior costophrenic angles, with 7 mm thick coronal and sagittal MIP reformats. 1 mm thick dynamic expiratory images acquired through the upper, mid, and lower lungs. 1.0 mm thick axial sections acquired from the sima to the posterior costophrenic angles in the prone end-inspiration position. For radiation dose reduction, the following was used: automated exposure control, adjustment of mA and/or kV according to patient size. COMPARISON: [facility], CT, CT CHEST W CON, 11/23/2023, 18:45. FINDINGS: Image quality: Diagnostic. Lower Neck: No enlarged lymph nodes. Thyroid: No thyroid nodules which require sonographic follow up, per consensus guidelines. Axillae: No enlarged lymph nodes. Somewhat shotty appearing lymph nodes. Chest Wall: Right-sided port with the catheter tip at the cavoatrial junction. Gynecomastia on the left. Bones: Unremarkable. Lungs and Pleura: Moderate peripheral reticular thickening. Mild peripheral ground-glass opacity. These findings are increased compared to CT chest 11/23/2023. This persists on the prone sequence. No convincing air trapping. The central airways are clear. Mild bronchiectasis. No honeycombing. No mass or significant pulmonary nodules identified. Left upper lobe calcified granuloma. Trace pleural effusions, decreased. No pneumothorax. Heart: Heart size is prominent. Three-vessel coronary artery calcifications. No pericardial effusion. Thoracic Vessels: The aorta and pulmonary arteries demonstrate normal size. Mediastinum and Sarah: No enlarged lymph nodes. Shotty appearing mediastinal lymph nodes. Esophagus: No wall thickening. No hiatal hernia. Upper Abdomen: Visualized upper abdomen solid organs and bowel loops appear normal. IMPRESSION: 1. Moderate peripheral to clear thickening with associated mild ground-glass opacity. This is increased compared to November 2023. Nonspecific. 2. Mild bronchiectasis is similar. No honeycombing appreciated. 3. Trace bilateral pleural effusions, decreased. 4. No mass or significant pulmonary nodule identified. 5. Shotty appearing mediastinal and axillary lymph nodes. Dictated by: Agustin Kaiser M.D. on 01/30/2024 at 11:57 Approved by: Agustin Kaiser M.D. on 01/30/2024 at 12:10
== END ==
PROVIDERS: PCP Internal Medicine; Referring Provider Internal Medicine Critical Care Medicine; Visit Provider Internal Medicine Critical Care Medicine
DX: J98.4 Other disorders of lung (principal); J47.9 Bronchiectasis, uncomplicated; T46.2X5A Adverse effect of other antidysrhythmic drugs, initial encounter; I25.10 Atherosclerotic heart disease of native coronary artery without angina pectoris
CPT/HCPCS: 71250

== ENCOUNTER → 2024-02-01 09:56 | Outpatient (CLI) | payer MEDICARE, OTHER, SELFPAY ==
[2023-12-22 11:16] VITALS: BMI 22.4
== END ==
LOC: RESP 09:58
PROVIDERS: PCP Internal Medicine; Referring Provider Internal Medicine Critical Care Medicine; Visit Provider Internal Medicine Critical Care Medicine
DX: J86.9 Pyothorax without fistula (principal); F17.210 Nicotine dependence, cigarettes, uncomplicated
CPT/HCPCS: 94060; 94726; 94729

== ENCOUNTER → 2024-02-14 08:09 | Outpatient (CLI) | payer MEDICARE, OTHER, SELFPAY ==
[2023-12-22 11:16] VITALS: BMI 22.4
--- NOTE | 2024-02-14 08:10 | DI.CT.S_ITS ---
PROCEDURE: CT SINUS SCREEN WO CON INDICATIONS: right maxillary sinusitis TECHNIQUE: Noncontrast 3.0 mm axial images acquired from the frontal sinuses to the mid-sella, with coronal and sagittal reformats. For radiation dose reduction, the following was used: automated exposure control, adjustment of mA and/or kV according to patient size. COMPARISON: None. FINDINGS: Image quality: Excellent. Sinuses: There is prominent mucosal thickening within the right maxillary sinus. Minimal scattered mucosal thickening is present in the ethmoid air cells as well as left maxillary sinus, sphenoid sinuses and right frontal sinus. No fluid levels. Ostiomeatal Complexes: There is occlusion of the right ostiomeatal complex. Left side is patent. Miscellaneous: Visualized intra-orbital contents are normal. No kasandra bullosa. There is a right middle paradoxical turbinate curvature. Prominent rightward nasal septal deviation. IMPRESSION: Prominent right maxillary sinus mucosal thickening with occlusion of the right ostiomeatal complex. Dictated by: Ernestina Roblero M.D. on 02/14/2024 at 10:13 Approved by: Ernestina Roblero M.D. on 02/14/2024 at 10:16
== END ==
PROVIDERS: PCP Internal Medicine; Referring Provider Internal Medicine; Visit Provider Internal Medicine
DX: J32.0 Chronic maxillary sinusitis (principal)
CPT/HCPCS: 70486

== ENCOUNTER → 2024-04-11 09:15 | Outpatient (CLI) | payer MEDICARE, OTHER, SELFPAY ==
[2023-12-22 11:16] VITALS: BMI 22.4
--- NOTE | 2024-04-11 09:17 | DI.CT.S_ITS ---
PROCEDURE: CT CHEST HIGH RESOLUTION INDICATIONS: amio toxicity follow up TECHNIQUE: Noncontrast 1.0 and 5.0 mm thick contiguous axial sections from the pulmonary apex to the posterior costophrenic angles, with 7 mm thick coronal and sagittal MIP reformats. 1 mm thick dynamic expiratory images acquired through the upper, mid, and lower lungs. 1.0 mm thick axial sections acquired from the sima to the posterior costophrenic angles in the prone end-inspiration position. For radiation dose reduction, the following was used: automated exposure control, adjustment of mA and/or kV according to patient size. COMPARISON: [facility], CT, CT CHEST HIGH RESOLUTION, 01/30/2024, 9:23. FINDINGS: Image quality: Diagnostic. Lower Neck: No enlarged lymph nodes. Thyroid: No thyroid nodules which require sonographic follow up, per consensus guidelines. Axillae: Prominent number of axillary lymph nodes. Chest Wall: Right chest wall port tip terminates in the right atrium. Bones: Unremarkable. Lungs and Pleura: Baseline peripheral reticulation with subpleural sparing, ground-glass, basilar predominance, bronchiectasis. Superimposed patchy centrilobular ground-glass is present. Smooth interstitial thickening is also present predominantly within the lung bases. New solid pulmonary nodules are seen. For instance, the 6 x 4 millimeter nodule in the left lower lobe (series 2, image 184) and 3 x 4 millimeter nodule in the right lower lobe (series 2, image 152). New loculated fluid within the left minor fissure. Heart: Heart size is enlarged. No pericardial effusion. Three-vessel coronary calcifications. Thoracic Vessels: The aorta and pulmonary arteries demonstrate normal size. Mediastinum and Sarah: Prominent number of mediastinal lymph nodes. Esophagus: No wall thickening. No hiatal hernia. Upper Abdomen: Spleen is likely enlarged. IMPRESSION: Baseline interstitial lung disease is similar to prior. However, there is new centrilobular ground-glass and nodularity. Findings are concerning for superimposed infection or acute exacerbation of interstitial lung disease/drug reaction. Short-term follow-up to ensure resolution is recommended. Prominent number of mediastinal and axillary chain lymph nodes. Additionally, the spleen is likely enlarged. Findings raises suspicion for lymphoma. Dictated by: Jimmie Coyle M.D. on 04/11/2024 at 11:30 Approved by: Jimmie Coyle M.D. on 04/11/2024 at 12:28
== END ==
PROVIDERS: PCP Internal Medicine; Referring Provider Internal Medicine Critical Care Medicine; Visit Provider Internal Medicine Critical Care Medicine
DX: J98.4 Other disorders of lung (principal); T46.2X5A Adverse effect of other antidysrhythmic drugs, initial encounter
CPT/HCPCS: 71250

== ENCOUNTER 2024-05-03 18:38 | Emergency (ER) | payer MEDICARE, OTHER, SELFPAY ==
[2023-12-22 11:16] VITALS: BMI 22.4
[2024-05-03] VITALS (11 sets, daily range): BP systolic 120–143; BP diastolic 59–78; PULSE 83–94; RESP 16–18; TEMP 36.7; O2SAT 94–97; BMI 19.9
[2024-05-03 19:23] LABS: Hematocrit 33.3 % (41-53); Hemoglobin 10.3 g/dL (13.5-17.5); Mean Corpuscular Hemoglobin 30.3 PG (26-34); Mean Corpuscular Volume 97.7 fL (80-100); Platelet Count 50 X10^3/uL (150-400); Red Blood Cell Count 3.41 X10^6/uL (4.5-5.9); Red Cell Distribution Width 19.3 % (11.6-14.8)
[2024-05-03 19:25] LABS: Add Manual Diff / Slide Review YES; White Blood Cell Count 117.3 X10^3/uL (4.5-11.0)
[2024-05-03 19:29] LABS: Alanine Aminotransferase 16 IU/L (<50); Albumin 4.4 g/dL (3.5-5.0); Albumin Globulin Ratio 1.3 (1.0-2.8); Alkaline Phosphatase 84 U/L (38-126); Aspartate Aminotransferase 33 IU/L (17-59); BUN Creatinine Ratio 16.4 (6-22); Bilirubin Total 0.8 mg/dL (0.2-1.3); Blood Urea Nitrogen 37 mg/dL (9-20); Calcium 9.3 mg/dL (8.4-10.2); Carbon Dioxide 20 mmol/L (22-32); Chloride 105 mmol/L (98-107); Estimated Glomerular Filt Rate 28 mL/min (>60); Globulin 3.4 g/dL (1.7-4.1); Glucose 93 mg/dL (80-110); HEMOLYSIS < 15 (0-50); Potassium 4.6 mmol/L (3.4-5.1); Sodium 137 mmol/L (137-145); Total Protein 7.8 g/dL (6.3-8.2)
[2024-05-03 19:33] LABS: Uric Acid 12.1 mg/dL (3.5-8.5)
[2024-05-03 19:36] LABS: Band Neutrophils Percent 2.5 % (3-7); Lymphocytes Percent Manual 6.5 % (25-45); Metamyelocytes Percent 6.5 % (-0); Neutrophils Absolute Manual 64515 /uL (3000-5900); Segmented Neutrophils Percent 52.5 % (38-70); Total Cells Counted 200
[2024-05-03 19:39] LABS: Anisocytosis 2+
[2024-05-03] MEDS: SODIUM CHLORIDE 0.9% 1,000 ML 1000 ML IV ×2 (19:56→23:22)
--- NOTE | 2024-05-03 20:28 | ED_ITS ---
HPI - Recheck/Abnormal Lab/Rx General Chief Complaint: Recheck/Abnormal Lab/Rx Stated Complaint: sent by pcp, abn uric acid Time Seen by Provider: 05/03/24 19:35 Source: patient Mode of arrival: Ambulatory History of Present Illness HPI narrative: Patient is an 83-year-old male. He is on anticoagulation. Also has a history of chronic leukemia. Had labs drawn earlier this week by his oncologist. He received a call today telling him to come to the emergency department because of his elevation in uric acid. Patient is asymptomatic. Related Data Home Medications Medication Instructions Recorded Confirmed Magnesium Citrate 1 tab PO DAILY 10/20/21 03/20/24 metoprolol succinate 100 mg 100 mg PO BID 12/22/23 03/20/24 tablet,extended release 24 hr acyclovir 200 mg capsule 200 mg PO BID 01/17/24 03/20/24 apixaban 2.5 mg tablet 2.5 mg PO BID 01/17/24 03/20/24 digoxin 62.5 mcg (0.0625 mg) tablet 62.5 mcg PO Q OTHER DAY 01/20/24 03/20/24 ondansetron 4 mg disintegrating 4 mg PO DAILY PRN 01/20/24 03/20/24 tablet polyethylene glycol 3350 17 17 g PO DAILY PRN 01/20/24 03/20/24 gram/dose oral powder (Miralax) prochlorperazine maleate 5 mg 5 mg PO DAILY PRN 01/20/24 03/20/24 tablet Previous Rx's Medication Instructions Recorded Disabled Parking #1 ea 12/22/23 Allergies Allergy/AdvReac Type Severity Reaction Status Date / Time benzonatate AdvReac Intermediate Rash Verified 03/20/24 09:40 Review of Systems Review of Systems ROS Unobtainable: All systems reviewed & are unremarkable except as noted in HPI and below Patient History Medical History Persistent atrial fibrillation Chronic renal failure, stage 3a Empyema 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 Brother Alzheimer's disease Grandmother No problems noted. Social History Smoking Status: Former smoker Tobacco: How many years used: 2 second hand exposure: No alcohol intake: current substance use type: does not use Smoking Status: Former smoker alcohol intake frequency: 0-2 drinks per day Substance Use Type: does not use Exam Initial Vital Signs Initial Vital Signs: Vital Signs Temperature 98.0 F 05/03/24 18:47 Pulse Rate 87 05/03/24 18:47 Respiratory Rate 16 05/03/24 18:47 Blood Pressure 143/63 H 05/03/24 18:47 Pulse Oximetry 95 05/03/24 18:47 Oxygen Delivery Method Room Air 05/03/24 18:47 Const General: cooperative, comfortable and No ill appearing HENNV Head: normal to inspection and normocephalic Resp Effort & Inspection: normal respiratory effort Cardio Rate: regular rate Skin General: no rashes or lesions noted Neuro General: patient alert, patient awake and moves all extremities Extrem General: capillary refill normal Course Orders Ordered: ED Orders 05/03/24 19:02 Complete Blood Count AUTO DIFF Stat Comprehensive Metabolic Panel Stat Uric Acid Stat Discontinued Medications Sodium Chloride (Normal Saline 0.9%) 1,000 mls @ 1,000 mls/hr IV BOLUS ONE Stop: 05/03/24 20:34 Last Infusion: 05/03/24 21:20 Dose: Infused Documented By: Admin: 05/03/24 19:56 Dose: 1,000 mls/hr Documented By: Rasburicase 7.5 mg/ Sodium (Chloride) 50 mls @ 100 mls/hr IV NOW ONE Stop: 05/03/24 20:50 Sodium Chloride (Normal Saline 0.9%) 1,000 mls @ 1,000 mls/hr IV BOLUS ONE Stop: 05/03/24 23:55 Last Admin: 05/03/24 23:22 Dose: 1,000 mls/hr Documented By: ISAMAR Vital Signs Vital signs: Vital Signs - 8 hr 05/03/24 18:47 05/03/24 19:40 05/03/24 19:41 Temperature 98.0 F Pulse Rate 87 89 Respiratory Rate 16 Blood Pressure 143/63 H 130/77 Pulse Oximetry 95 97 Oxygen Delivery Method Room Air 05/03/24 19:41 05/03/24 20:00 05/03/24 20:00 Temperature Pulse Rate 89 94 H Respiratory Rate 18 Blood Pressure 122/76 Pulse Oximetry 97 95 Oxygen Delivery Method Room Air 05/03/24 20:30 05/03/24 20:30 05/03/24 21:00 Temperature Pulse Rate 92 H 86 Respiratory Rate Blood Pressure 126/74 Pulse Oximetry 97 95 Oxygen Delivery Method 05/03/24 21:00 05/03/24 21:30 05/03/24 21:30 Temperature Pulse Rate 85 Respiratory Rate Blood Pressure 134/72 131/63 Pulse Oximetry 96 Oxygen Delivery Method Room Air 05/03/24 22:35 05/03/24 22:36 05/03/24 22:36 Temperature Pulse Rate 86 86 Respiratory Rate Blood Pressure 120/59 L Pulse Oximetry 96 95 Oxygen Delivery Method 05/03/24 23:00 05/03/24 23:00 05/03/24 23:54 Temperature Pulse Rate 83 92 H Respiratory Rate 16 Blood Pressure 133/72 134/78 Pulse Oximetry 94 94 Oxygen Delivery Method Room Air MDM - Recheck/Abnormal Lab/Rx Medical Records Attestation: I reviewed the patient's medical records. Lab Data Attestation: I reviewed the patient's lab results. 05/03/24 19:02 05/03/24 19:02 Labs: Lab Results 05/03/24 Range/Units 19:02 WBC 117.3 H* (4.5-11.0) X10^3/uL RBC 3.41 L (4.5-5.9) X10^6/uL Hgb 10.3 L (13.5-17.5) g/dL Hct 33.3 L (41-53) % MCV 97.7 (80-100) fL MCH 30.3 (26-34) PG MCHC 31.0 (30-36) % RDW 19.3 H (11.6-14.8) % Plt Count 50 L (150-400) X10^3/uL Neut % (Auto) Not Reportable Lymph % (Auto) Not Reportable [place] % (Auto) Not Reportable Eos % (Auto) Not Reportable Baso % (Auto) Not Reportable Lymph # (Auto) Not Reportable [place] # (Auto) Not Reportable Baso # (Auto) Not Reportable Total Counted 200 Seg Neutrophils % 52.5 (38-70) % Band Neutrophils % 2.5 L (3-7) % Lymphocytes % (Manual) 6.5 L (25-45) % Monocytes % (Manual) 27.0 H (2-11) % Eosinophils % (Manual) 2.0 (2-4) % Basophils % (Manual) 1.0 (0-1) % Metamyelocytes % 6.5 H (-0) % Blast Cells % 2.0 H (-0) % Neutrophils # (Manual) 08694 H (7954-9614) /uL RBC Morphology See below Anisocytosis 2+ H Sodium 137 (137-145) mmol/L Potassium 4.6 (3.4-5.1) mmol/L Chloride 105 (98-107) mmol/L Carbon Dioxide 20 L (22-32) mmol/L BUN 37 H (9-20) mg/dL Creatinine 2.25 H (0.66-1.25) mg/dL Estimated GFR 28 L (>60) mL/min BUN/Creatinine Ratio 16.4 (6-22) Glucose 93 (80-110) mg/dL Uric Acid 12.1 H* (3.5-8.5) mg/dL Calcium 9.3 (8.4-10.2) mg/dL Total Bilirubin 0.8 (0.2-1.3) mg/dL AST 33 (17-59) IU/L ALT 16 (<50) IU/L Alkaline Phosphatase 84 (38-126) U/L Total Protein 7.8 (6.3-8.2) g/dL Albumin 4.4 (3.5-5.0) g/dL Globulin 3.4 (1.7-4.1) g/dL Albumin/Globulin Ratio 1.3 (1.0-2.8) Urine Dip Bedside Urine Glucose Negative Bedside Urine Bilirubin - Negative Bedside Urine Ketone - Negative Urine Specific [place] 1.015 Bedside Urine Occult Blood - Negative Bedside Urine pH 6.0 Bedside Urine Protein +/- 15 Bedside Urine Urobilinogen - Negative Bedside Urine Nitrite - Negative Bedside Urine Leukocytes - Negative Esterase MDM Narrative Medical decision making narrative: I did discuss the case with on-call Oncology at [facility] where the patient is followed for his leukemia. They recommended fluids and if available recommended Rasburicase however this medication was not available at our facility. They stated that if the medication was not available that would be okay and just continue to provide more fluids the patient if he clinically was not becoming fluid overloaded. The patient did receive 2 L of normal saline. He already has a prescription for allopurinol. He has not taken the medicine prior to this visit so he took 1 tablet here in the ER. He has a telemedicine visit with his oncologist scheduled for tomorrow what she was advised to keep. No indication for admission to the hospital based on discussion with Oncology. He was given return precautions. He expressed understanding and agreement. Discharge Plan Departure Patient Disposition: Home Clinical Impression: Elevated blood uric acid level Activity Restrictions/Additional Instructions: Continue to take all of your medication as directed. Keep your scheduled follow-up appointment with your oncologist on Tuesday. Return to the emergency department for new symptoms. Prescriptions: No Action metoprolol succinate 100 mg tablet extended release 24 hr 100 mg PO BID (DME) Disabled Parking See Rx Instructions .ROUTE .MEDSUPPLY Qty: 1 0RF Rx Instructions: Patient qualifies for disabled parking as per the attached form. digoxin 62.5 mcg (0.0625 mg) tablet 62.5 mcg PO Q OTHER DAY ondansetron 4 mg tablet,disintegrating 4 mg PO DAILY PRN prochlorperazine maleate 5 mg tablet 5 mg PO DAILY PRN polyethylene glycol 3350 [Miralax] 17 gram/dose powder 17 g PO DAILY PRN Magnesium Citrate 400 mg 1 tab PO DAILY acyclovir 200 mg capsule 200 mg PO BID apixaban 2.5 mg tablet 2.5 mg PO BID Referrals: Adrian London MD [Primary Care Provider] - Stand Alone Forms: Patient Portal/API
--- NOTE | 2024-05-03 23:00 | PC.NURSE ---
Pharmacy called in as ordered elitek was not in the hospital. Pharmacy states that this medication is unavailable. ADARSH Hankins to bedside to speak w pt. Oders for 0.9% NS placed.
== END 2024-05-03 23:56 | disposition home or self-care (01) ==
PROVIDERS: Emergency Provider Emergency Medicine; PCP Internal Medicine
DX: E79.0 Hyperuricemia without signs of inflammatory arthritis and tophaceous disease (principal); C93.10 Chronic myelomonocytic leukemia not having achieved remission; Z79.01 Long term (current) use of anticoagulants
CPT/HCPCS: 36415; 80053; 81003; 84550; 85007; 85025; 96360; 99284

== ENCOUNTER 2024-05-21 07:08 | Emergency (ER) | payer MEDICARE, OTHER, SELFPAY ==
[2023-12-22 11:16] VITALS: BMI 22.4
[2024-05-21] VITALS (23 sets, daily range): BP systolic 94–122; BP diastolic 52–75; PULSE 52–88; RESP 16–27; TEMP 36.2; O2SAT 93–100; BMI 22.4
--- NOTE | 2024-05-21 07:25 | DI.RAD.S_ITS ---
PROCEDURE: XR CHEST 1V INDICATIONS: Shortness of breath TECHNIQUE: One view of the chest was acquired. COMPARISON: [facility], CR, XR CHEST 1V, 12/26/2023, 16:24. FINDINGS: Surgical changes and devices: Right chest Port-A-Cath. Lungs and pleura: Lungs are clear. No pleural effusions or pneumothorax. Mediastinum: Mediastinal contours appear normal. Stable cardiomegaly Bones and chest wall: No suspicious bony lesions. Overlying soft tissues appear unremarkable. IMPRESSION: Stable cardiomegaly. No gross infiltrates. Dictated by: Marcin Kirkland M.D. on 05/21/2024 at 9:04 Approved by: Marcin Kirkland M.D. on 05/21/2024 at 9:05
--- NOTE | 2024-05-21 07:35 | ED_ITS ---
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 He says that with exertion he is extremely short of breath but once he stops and rests it gets better pretty quickly. He has not hypoxic at rest. He denies any sort of chest pain no fever or chills. No palpitations he is currently in AFib but seems to be rate controlled. He has no abdominal pain nausea or vomiting. He continues to participate in Cardiopulmonary Rehab He is currently undergoing azacitidine infusions with [facility]. He was [facility] during this past year as well he was in and out of atrial fibrillation he was started on amiodarone however patient developed amiodarone related pneumonitis which is why he is followed by Cardiopulmonary Rehab. 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 They were doing some fluid balancing his kidneys were not doing well that he required Lasix in the hospital. He was not sent home on Lasix. He has been drinking at least 3 L of fluid a day. Related Data Home Medications Medication Instructions Recorded Confirmed Magnesium Citrate 1 tab PO DAILY 10/20/21 03/20/24 metoprolol succinate 100 mg 100 mg PO BID 12/22/23 03/20/24 tablet,extended release 24 hr acyclovir 200 mg capsule 200 mg PO BID 01/17/24 03/20/24 apixaban 2.5 mg tablet 2.5 mg PO BID 01/17/24 03/20/24 digoxin 62.5 mcg (0.0625 mg) tablet 62.5 mcg PO Q OTHER DAY 01/20/24 03/20/24 ondansetron 4 mg disintegrating 4 mg PO DAILY PRN 01/20/24 03/20/24 tablet polyethylene glycol 3350 17 17 g PO DAILY PRN 01/20/24 03/20/24 gram/dose oral powder (Miralax) prochlorperazine maleate 5 mg 5 mg PO DAILY PRN 01/20/24 03/20/24 tablet Previous Rx's Medication Instructions Recorded Disabled Parking #1 ea 12/22/23 Allergies Allergy/AdvReac Type Severity Reaction Status Date / Time benzonatate AdvReac Intermediate Rash Verified 03/20/24 09:40 Patient History Medical History Persistent atrial fibrillation Chronic renal failure, stage 3a Empyema 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 Brother Alzheimer's disease Grandmother No problems noted. Social History Smoking Status: Former smoker Tobacco: How many years used: 2 second hand exposure: No alcohol intake: current substance use type: does not use Smoking Status: Former smoker alcohol intake frequency: 0-2 drinks per day Substance Use Type: does not use Exam Initial Vital Signs Initial Vital Signs: Vital Signs Pulse Rate 86 05/21/24 07:15 Respiratory Rate 25 H 05/21/24 07:15 Pulse Oximetry 99 05/21/24 07:15 GENERAL: Weak alert 83-year-old male HEENT: Head atraumatic,EOMI, pupils reactive, face symmetric, moist mucous membranes CARDIOVASCULAR: Regular rate and rhythm without murmurs, rubs or gallops. RESPIRATORY: Breath sounds equal bilaterally, no wheezes rales or rhonchi. ABDOMEN: Soft, nontender. Normoactive bowel sounds all 4 quadrants. No guarding or rebound. EXTREMITIES: Normal range of motion, no clubbing or edema. Neurovascularly intact NEUROLOGICAL: Alert and oriented x4.Normal gait and speech. SKIN: Warm, dry, no laceration, no petechiae, no rashes or lesions. Course Orders Ordered: ED Orders 05/21/24 10:20 Urinalysis and Microscopic Stat Discontinued Medications Furosemide (Furosemide 40 Mg/4 Ml Vial) 40 mg IV NOW ONE Stop: 05/21/24 09:34 Last Admin: 05/21/24 10:19 Dose: 40 mg Documented By: CELESTE Vital Signs Vital signs: Vital Signs - 8 hr 05/21/24 10:30 05/21/24 10:30 05/21/24 11:00 Temperature Pulse Rate 81 Respiratory Rate 16 Blood Pressure 106/63 100/55 L Pulse Oximetry 98 Oxygen Delivery Method Room Air 05/21/24 11:00 05/21/24 11:30 05/21/24 11:30 Temperature Pulse Rate 79 88 Respiratory Rate 21 Blood Pressure 96/55 L Pulse Oximetry 99 94 Oxygen Delivery Method 05/21/24 11:32 05/21/24 11:51 05/21/24 11:51 Temperature Pulse Rate 80 83 Respiratory Rate 20 23 Blood Pressure 94/59 L Pulse Oximetry 93 99 Oxygen Delivery Method 05/21/24 11:58 05/21/24 11:58 05/21/24 12:00 Temperature Pulse Rate 80 88 Respiratory Rate 23 Blood Pressure 96/52 L Pulse Oximetry 99 99 Oxygen Delivery Method 05/21/24 12:01 05/21/24 12:30 05/21/24 12:30 Temperature Pulse Rate 79 Respiratory Rate 21 Blood Pressure 115/75 97/60 Pulse Oximetry 99 Oxygen Delivery Method 05/21/24 12:53 05/21/24 12:53 05/21/24 13:08 Temperature Pulse Rate 86 57 L Respiratory Rate 27 H Blood Pressure 97/63 Pulse Oximetry Oxygen Delivery Method 05/21/24 13:09 05/21/24 13:09 05/21/24 13:15 Temperature 97.2 F L Pulse Rate 58 L 52 L Respiratory Rate 18 Blood Pressure 95/56 L 95/56 L Pulse Oximetry 95 97 Oxygen Delivery Method Room Air MDM - SOB/Dyspnea Lab Data 05/21/24 07:31 05/21/24 07:31 Labs: Lab Results 05/21/24 05/21/24 Range/Units 07:31 10:20 WBC 34.2 H* (4.5-11.0) X10^3/uL RBC 3.12 L (4.5-5.9) X10^6/uL Hgb 10.0 L (13.5-17.5) g/dL Hct 30.6 L (41-53) % MCV 98.3 (80-100) fL MCH 32.2 (26-34) PG MCHC 32.8 (30-36) % RDW 21.1 H (11.6-14.8) % Plt Count 40 L (150-400) X10^3/uL Neut % (Auto) Not Reportable Lymph % (Auto) Not Reportable [place] % (Auto) Not Reportable Eos % (Auto) Not Reportable Baso % (Auto) Not Reportable Lymph # (Auto) Not Reportable [place] # (Auto) Not Reportable Baso # (Auto) Not Reportable Total Counted 100 Seg Neutrophils % 57.0 (38-70) % Band Neutrophils % 2.0 L (3-7) % Lymphocytes % (Manual) 3.0 L (25-45) % Monocytes % (Manual) 37.0 H (2-11) % Basophils % (Manual) 1.0 (0-1) % Neutrophils # (Manual) 91676 H (8309-6865) /uL Platelet Estimate Decreased on smear RBC Morphology See below Anisocytosis 2+ H PT 17.9 H (9.4-12.5) SECONDS INR 1.6 H (0.9-1.3) APTT 32 (25.1-36.5) SECONDS Sodium 134 L (137-145) mmol/L Potassium 3.9 (3.4-5.1) mmol/L Chloride 104 (98-107) mmol/L Carbon Dioxide 19 L (22-32) mmol/L BUN 40 H (9-20) mg/dL Creatinine 2.11 H (0.66-1.25) mg/dL Estimated GFR 31 L (>60) mL/min BUN/Creatinine Ratio 19.0 (6-22) Glucose 132 H (80-110) mg/dL Lactate 1.0 (0.7-2.1) mmol/L Calcium 9.0 (8.4-10.2) mg/dL Total Bilirubin 0.7 (0.2-1.3) mg/dL AST 23 (17-59) IU/L ALT 22 (<50) IU/L Alkaline Phosphatase 68 (38-126) U/L Troponin I < 0.012 (0.01-0.034) ng/mL NT-Pro-B Natriuret Pep 7150 H (<450) pg/mL Total Protein 6.6 (6.3-8.2) g/dL Albumin 3.8 (3.5-5.0) g/dL Globulin 2.8 (1.7-4.1) g/dL Albumin/Globulin Ratio 1.4 (1.0-2.8) Procalcitonin 0.315 (<0.5) ng/mL Urine Color Yellow Urine Appearance Clear Urine pH 5.5 (4.5-8.0) Ur Specific [place] 1.015 (1.000-1.035) Urine Protein Trace H (Negative) Urine Glucose (UA) Negative (Negative) g/dL Urine Ketones Negative (NEGATIVE) Urine Occult Blood Trace-intact (Negative) Urine Nitrate Negative (Negative) Urine Bilirubin Negative (NEGATIVE) Urine Urobilinogen 0.2 (0.2) E.U./dL Ur Leukocyte Esterase Negative (NEGATIVE) Urine RBC 0-1/hpf (0-5/HPF) Urine WBC None seen (0-5/HPF) Ur Squamous Epith Cells None seen (0-5/HPF) Urine Bacteria None seen (None) Ur Culture Indicated? Cult not indicated Vol Urine Centrifuged 10ml (spun) Chlamy pneumoniae PCR Not detected (Not Detect) Adenovirus (PCR) Not detected (Not Detect) B.parapertussis DNA PCR Not detected (Not Detecte) Coronavirus OC43 (PCR) Not detected (Not Detect) Coronavirus HKU1 (PCR) Not detected (Not Detect) Coronavirus 229E (PCR) Not detected (Not Detect) SARS-CoV-2 (PCR) Not detected (Not Detecte) Coronavirus NL63 (PCR) Not detected (Not Detect) Human Metapneumovir PCR Not detected (Not Detect) Influenza Type A (PCR) Not detected (Not Detect) Influenza Type B (PCR) Not detected (Not Detect) M. pneumoniae (PCR) Not detected (Not Detect) Parainfluenza 1 (PCR) Not detected (Not Detect) Parainfluenza 2 (PCR) Not detected (Not Detect) Parainfluenza 3 (PCR) Not detected (Not Detect) Parainfluenza 4 (PCR) Not detected (Not Detect) RSV (PCR) Not detected (Not Detect) Entero/Rhino (PCR) Not detected (Not Detect) Imaging Data Chest x-ray: Radiologist's Impression: PROCEDURE: XR CHEST 1V INDICATIONS: Shortness of breath TECHNIQUE: One view of the chest was acquired. COMPARISON: [facility], , XR CHEST 1V, 12/26/2023, 16:24. FINDINGS: Surgical changes and devices: Right chest Port-A-Cath. Lungs and pleura: Lungs are clear. No pleural effusions or pneumothorax. Mediastinum: Mediastinal contours appear normal. Stable cardiomegaly Bones and chest wall: No suspicious bony lesions. Overlying soft tissues appear unremarkable. IMPRESSION: Stable cardiomegaly. No gross infiltrates. Dictated by: Marcin Kirkland M.D. on 05/21/2024 at 9:04 ECG Data Attestation: I personally reviewed and interpreted this ECG as follows: Prior ECG tracings: available for review Interpretation: Atrial fibrillation rate to p.o. 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 Pertinent findings: Creatinine 2.1 previously 2.2, WBC 34.3 previously 117, hemoglobin 10 hematocrit 36.6 platelets 40 previously 50, BNP 7150 troponin negative procalcitonin 0.315 lactate 1.0 Respiratory panel negative Urinalysis negative Independently reviewed EKG as above rate controlled atrial fibrillation Imaging studies independently reviewed:stable cardiomegaly no infiltrates Consultations: 12:30 Dr. Montejo cardiology updated on patient's symptoms test results not convinced that medication is causing a mild hypotension but states he could change metoprolol to 50 mg twice a day. Recommends close outpatient follow-up. Dr. London updated on patient's symptoms test results cardiology recommendations will check in with patient later this week Treatments: Lasix 40 mg Re-evaluations: Overall feeling much better breathing gross he says he has not having as much trouble Discussion: Patient 83-year-old male presenting with increasing shortness of breath with exertion after extensive hospital stay he is not hypoxic or tachycardic although he is on medication for that he has no conversational dyspnea he is on Eliquis. I think PE is unlikely he does have significant kidney disease. He would elevated BNP though this is in the setting of chronic kidney disease he is given Lasix and urinates quite a bit. He ambulated here in the ED and actually felt like his breathing was significantly improved. He does not look significantly fluid overloaded but reports he is drinking quite a bit of water. He does not have any significant complications such as hyponatremia from this. Blood pressure in the ED is to be soft it is a mid 90s to low 100s. Unclear cause of this his cardiac medication has been adjusted quite a bit during his hospital stays cardiology sure that medication is causing this. Do not think that patient is significantly dehydrated his creatinine is actually improved from previous he is short of breath with exertion feeling better after diuresis. Would not put patient on Lasix outpatient do not want to cause further dehydration hypotension. Patient has follow-up appointment with Bernardino estrada tomorrow for clinical study and then his primary care doc will see him later this week Patient is overall feeling better than when he 1st came in he feels comfortable going home. He has not dizzy or lightheaded he has not passed out does not feel like he is going to pass out pass an ambulation trial here in the ED It is unclear who was managing his cardiac medications he has had multiple admissions recently Discharge Plan Departure Patient Disposition: Home Clinical Impression: CHF (congestive heart failure) Activity Restrictions/Additional Instructions: *You have been diagnosed with possible mild congestive heart failure *What to do: Glad your breathing better. Her blood pressure is noted to be a little bit low. We discussed with Cardiology Dr. Montejo about adjusting some of your medication although this might not be the issue. Dr. London will will touch base with you later this week to check in and see how you are doing Continue to monitor and check blood pressure *Continue to take medications as directed Change metoprolol to 50 mg twice a day *Follow up with your primary care provider in 2-3 days or call [phone] *Return to ER if you should have increasing shortness of breath, dizziness lightheadedness falling or any new, worsening or concerning symptoms Prescriptions: No Action metoprolol succinate 100 mg tablet extended release 24 hr 100 mg PO BID (DME) Disabled Parking See Rx Instructions .ROUTE .MEDSUPPLY Qty: 1 0RF Rx Instructions: Patient qualifies for disabled parking as per the attached form. digoxin 62.5 mcg (0.0625 mg) tablet 62.5 mcg PO Q OTHER DAY ondansetron 4 mg tablet,disintegrating 4 mg PO DAILY PRN prochlorperazine maleate 5 mg tablet 5 mg PO DAILY PRN polyethylene glycol 3350 [Miralax] 17 gram/dose powder 17 g PO DAILY PRN Magnesium Citrate 400 mg 1 tab PO DAILY acyclovir 200 mg capsule 200 mg PO BID apixaban 2.5 mg tablet 2.5 mg PO BID Referrals: Adrian London MD [Primary Care Provider] - Stand Alone Forms: Patient Portal/API
--- NOTE | 2024-05-21 07:45 | EKG_ITS ---
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
[2024-05-21 07:54] LABS: Hematocrit 30.6 % (41-53); Mean Corpuscular HGB Conc 32.8 % (30-36); Mean Corpuscular Hemoglobin 32.2 PG (26-34); Mean Corpuscular Volume 98.3 fL (80-100); Platelet Count 40 X10^3/uL (150-400); Red Blood Cell Count 3.12 X10^6/uL (4.5-5.9); Red Cell Distribution Width 21.1 % (11.6-14.8)
[2024-05-21 07:56] LABS: INR 1.6 (0.9-1.3); Prothrombin Time 17.9 SECONDS (9.4-12.5)
[2024-05-21 08:00] LABS: Alanine Aminotransferase 22 IU/L (<50); Albumin 3.8 g/dL (3.5-5.0); Albumin Globulin Ratio 1.4 (1.0-2.8); Alkaline Phosphatase 68 U/L (38-126); Aspartate Aminotransferase 23 IU/L (17-59); Bilirubin Total 0.7 mg/dL (0.2-1.3); Blood Urea Nitrogen 40 mg/dL (9-20); Carbon Dioxide 19 mmol/L (22-32); Chloride 104 mmol/L (98-107); Estimated Glomerular Filt Rate 31 mL/min (>60); Globulin 2.8 g/dL (1.7-4.1); Glucose 132 mg/dL (80-110); HEMOLYSIS < 15 (0-50); Potassium 3.9 mmol/L (3.4-5.1); Sodium 134 mmol/L (137-145); Total Protein 6.6 g/dL (6.3-8.2)
[2024-05-21 08:01] LABS: White Blood Cell Count 34.2 X10^3/uL (4.5-11.0)
[2024-05-21 08:02] LABS: Add Manual Diff / Slide Review YES
[2024-05-21 08:11] LABS: PTT Partial Thromboplastin Tim 32 SECONDS (25.1-36.5)
[2024-05-21 08:12] LABS: Anisocytosis 2+; NT-proBNP (BNP-Adult 18+) 7150 pg/mL (<450); Neutrophils Absolute Manual 20178 /uL (3000-5900); Total Cells Counted 100; Troponin I < 0.012 ng/mL (0.01-0.034)
[2024-05-21 08:13] LABS: Platelet Estimate Decreased on smear
[2024-05-21 08:43] LABS: Procalcitonin 0.315 ng/mL (<0.5)
[2024-05-21 08:47] LABS: Adenovirus Not Detected (Not Detect); B. parapertussis Not Detected (Not Detecte); Bordetella pertussis Not Detected (Not Detect); Chlamydophila pneumoniae Not Detected (Not Detect); Coronavirus 229E Not Detected (Not Detect); Coronavirus HKU1 Not Detected (Not Detect); Coronavirus NL 63 Not Detected (Not Detect); Coronavirus OC43 Not Detected (Not Detect); Human Metapneumovirus Not Detected (Not Detect); Human Rhinovirus/Enterovirus Not Detected (Not Detect); Influenza A Not Detected (Not Detect); Influenza B Not Detected (Not Detect); Mycoplasma pneumoniae Not Detected (Not Detect); Parainfluenza Virus 1 Not Detected (Not Detect); Parainfluenza Virus 2 Not Detected (Not Detect); Parainfluenza Virus 3 Not Detected (Not Detect); Parainfluenza Virus 4 Not Detected (Not Detect); Respiratory Syncytial Virus Not Detected (Not Detect); SARS- CoV-2 Not Detected (Not Detecte)
[2024-05-21] MEDS: FUROSEMIDE 40 MG/4 ML VIAL IV (10:19)
[2024-05-21 10:31] LABS: Appearance Urine UA CLEAR; Bilirubin Urine UA NEGATIVE (NEGATIVE); Color Urine UA YELLOW; Glucose Urine UA NEGATIVE (Negative); Ketones Urine UA NEGATIVE (NEGATIVE); Leukocyte Esterase Urine UA NEGATIVE (NEGATIVE); Nitrite Urine UA NEGATIVE (Negative); Occult Blood Urine UA TRACE-INTACT (Negative); Protein Urine UA TRACE (Negative); Specific Gravity Urine UA 1.015 (1.000-1.035); Urobilinogen Urine UA 0.2 E.U./dL (0.2); pH Urine UA 5.5 (4.5-8.0)
[2024-05-21 10:38] LABS: Bacteria Urine None Seen; RBC Urine 0-1/HPF (0-5/HPF); Squamous Epithelial Cell Urine None Seen (0-5/HPF); Urine Volume 10mL (spun); WBC Urine None Seen (0-5/HPF)
[2024-05-21 10:39] LABS: Culture Indicated Urine Cult Not Indicated
== END 2024-05-21 13:15 | disposition home or self-care (01) ==
PROVIDERS: Emergency Provider Emergency Medicine; PCP Internal Medicine
DX: I50.9 Heart failure, unspecified (principal); R06.02 Shortness of breath; Z79.01 Long term (current) use of anticoagulants; C93.10 Chronic myelomonocytic leukemia not having achieved remission
CPT/HCPCS: 36415; 71045; 80053; 81001; 83605; 83880; 84145; 84484; 85007; 85025; 85610; 85730; 87040; 87633; 93005; 99284; J1940

== ENCOUNTER → 2024-05-29 09:58 | Outpatient (CLI) | payer MEDICARE, OTHER, SELFPAY ==
[2024-05-24 14:55] VITALS: BMI 22.4
== END ==
PROVIDERS: PCP Internal Medicine; Referring Provider Internal Medicine Critical Care Medicine; Visit Provider Internal Medicine Critical Care Medicine
DX: R94.2 Abnormal results of pulmonary function studies (principal); T46.2X5A Adverse effect of other antidysrhythmic drugs, initial encounter; F17.210 Nicotine dependence, cigarettes, uncomplicated
CPT/HCPCS: 94060; 94726; 94729

== ENCOUNTER 2024-07-23 10:15 | Outpatient (RCR) | payer MEDICARE, OTHER, SELFPAY ==
[2023-12-22 11:16] VITALS: BMI 22.4
== END 2024-07-23 12:24 ==
LOC: PUL 10:15
PROVIDERS: PCP Internal Medicine; Referring Provider Internal Medicine Critical Care Medicine; Visit Provider Internal Medicine Critical Care Medicine
DX: J98.4 Other disorders of lung (principal); T46.2X5A Adverse effect of other antidysrhythmic drugs, initial encounter
CPT/HCPCS: G0237; G0238

== ENCOUNTER → 2024-08-08 08:28 | Outpatient (CLI) | payer MEDICARE, OTHER, SELFPAY ==
[2024-05-24 14:55] VITALS: BMI 22.4
--- NOTE | 2024-08-08 08:29 | DI.CT.S_ITS ---
PROCEDURE: CT CHEST HIGH RESOLUTION INDICATIONS: interstitial lung disease TECHNIQUE: Noncontrast 1.0 and 5.0 mm thick contiguous axial sections from the pulmonary apex to the posterior costophrenic angles, with 7 mm thick coronal and sagittal MIP reformats. 1 mm thick dynamic expiratory images acquired through the upper, mid, and lower lungs. 1.0 mm thick axial sections acquired from the sima to the posterior costophrenic angles in the prone end-inspiration position. For radiation dose reduction, the following was used: automated exposure control, adjustment of mA and/or kV according to patient size. COMPARISON: [facility], CT, CT CHEST HIGH RESOLUTION, 04/11/2024, 9:24. FINDINGS: Image quality: Diagnostic Lungs and pleura: [id number] diffuse air trapping is present on expiratory views. On inspiration views, peripheral reticulation is seen especially at the costophrenic angles and lower lobes in the subpleural region. Background ground-glass opacity seen previously are decreased. No pleural effusions. No dense airspace consolidation. Findings persist on prone imaging. Scattered pulmonary micro nodules and granulomas again seen, none overtly suspicious. Mediastinum, heart, and esophagus: There is a right port catheter terminating in the cavoatrial junction. Left atrial appendage device. Coronary calcifications. Cardiomegaly. Patulous esophagus, nonspecific. Prominent mediastinal hilar lymph nodes, also nonspecific, possibly reactive, none enlarged by size criteria. Chest wall and thyroid: Unremarkable Upper abdomen: No gross abnormality on these noncontrast images Bones: Degenerative changes are present. IMPRESSION: Mild peripheral reticulation especially in the subpleural distribution greater in the lower lobes. Background parenchymal [id number] air trapping also seen, indicating longstanding bronchiolitis. Previous ground-glass opacities are decreased, which may have represented ILD exacerbation and/or infection. In the setting of ILD, consider future followup to assess for progression and any pulmonary nodules. ATS 2018 HRCT classification: Indeterminate for UIP ILD. Other findings above. Dictated by: Hood Pang M.D. on 08/08/2024 at 13:36 Approved by: Hood Pang M.D. on 08/08/2024 at 13:40
== END ==
PROVIDERS: PCP Internal Medicine; Referring Provider Internal Medicine Critical Care Medicine; Visit Provider Internal Medicine Critical Care Medicine
DX: J98.4 Other disorders of lung (principal); T46.2X5A Adverse effect of other antidysrhythmic drugs, initial encounter; I25.10 Atherosclerotic heart disease of native coronary artery without angina pectoris; I51.7 Cardiomegaly
CPT/HCPCS: 71250

== ENCOUNTER 2024-10-04 17:49 | Emergency (ER) | payer MEDICARE, OTHER, SELFPAY ==
[2024-05-24 14:55] VITALS: BMI 22.4
[2024-10-04 18:06] VITALS: BP 134/63; PULSE 95; TEMP 37; O2SAT 98; BMI 22.4
--- NOTE | 2024-10-04 18:29 | ED_ITS ---
HPI - Skin/Abscess/Foreign Bdy General Chief complaint: Skin/Abscess/Foreign Body Stated complaint: cellulitis of leg, leukemia pt sent by [facility] Time Seen by Provider: 10/04/24 18:26 Source: patient Mode of arrival: Ambulatory Limitations: no limitations History of Present Illness HPI narrative: Patient was an 83-year-old male with a history of CMML he was being treated for this who is here for evaluation of concerns for a cellulitis to his left ankle. He started noticing the redness in the discomfort a couple days ago. No fevers. No trauma. Is ambulatory. Went to the walk-in clinic and was sent to the emergency department for further evaluation. Related Data Home Medications Medication Instructions Recorded Confirmed Magnesium Citrate 1 tab PO DAILY 10/20/21 10/04/24 acyclovir 200 mg capsule 200 mg PO BID 01/17/24 10/04/24 metoprolol succinate 100 mg 50 mg PO BID 05/24/24 10/04/24 tablet,extended release 24 hr allopurinol 300 mg tablet 300 mg PO DAILY 08/02/24 10/04/24 aspirin 81 mg tablet,delayed 81 mg PO DAILY 08/02/24 10/04/24 release (Adult Low Dose Aspirin) clopidogrel 75 mg tablet (Plavix) 75 mg PO DAILY 08/02/24 10/04/24 digoxin 125 mcg (0.125 mg) tablet 0.0625 mg PO .qotherday 08/02/24 10/04/24 multivitamin 1 tab PO DAILY 08/02/24 10/04/24 hydroxyurea (sickle cell) 200 mg 200 mg PO DAILY 10/04/24 10/04/24 capsule Previous Rx's Medication Instructions Recorded Disabled Parking #1 ea 12/22/23 ipratropium bromide 42 mcg (0.06 2 spray intranasal BID #15 mL 05/24/24 %) nasal spray tamsulosin 0.4 mg capsule 0.4 mg PO DAILY #90 caps 05/24/24 cephalexin 500 mg capsule 500 mg PO QID 10 days #40 caps 10/04/24 Allergies Allergy/AdvReac Type Severity Reaction Status Date / Time amiodarone Allergy Verified 10/04/24 16:51 benzonatate AdvReac Intermediate Rash Verified 10/04/24 16:51 Review of Systems Review of Systems Narrative: See HPI Patient History Medical History Presence of Watchman left atrial appendage closure device Persistent atrial fibrillation Chronic renal failure, stage 3a Empyema 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 Brother Alzheimer's disease Grandmother No problems noted. Social History Smoking Status: Former smoker Tobacco: How many years used: 2 second hand exposure: No alcohol intake: current substance use type: does not use Smoking Status: Former smoker alcohol intake frequency: 0-2 drinks per day Exam Initial Vital Signs Initial Vital Signs: Vital Signs Temperature 98.6 F 10/04/24 18:06 Pulse Rate 95 H 10/04/24 18:06 Blood Pressure 134/63 10/04/24 18:06 Pulse Oximetry 98 10/04/24 18:06 Oxygen Delivery Method Room Air 10/04/24 18:06 Const General: cooperative, comfortable and No ill appearing Skin Other: patient with an area of redness and warmth in the medial aspect of the left ankle that extends from just distal to the medial malleolus to the intersection between the medial and distal 1/3 of the left leg. No pustules. No vesicles. Neuro General: patient alert, patient awake and moves all extremities Extrem Other: Some mild discomfort with palpation of the medial aspect leg /ankle Course Orders Ordered: ED Orders 10/04/24 18:42 Complete Blood Count AUTO DIFF Stat Comprehensive Metabolic Panel Stat Lactate (Lactic Acid) Stat Lipase Stat Procalcitonin Stat Uric Acid Stat 10/04/24 19:40 Blood Culture Stat Discontinued Medications Cephalexin HCl (Cephalexin 250 Mg Capsule) 500 mg PO NOW ONE Stop: 10/04/24 20:51 Last Admin: 10/04/24 21:00 Dose: 500 mg Documented By: HNEdinson Vital Signs Vital signs: Vital Signs - 8 hr 10/04/24 21:01 Pulse Rate 89 Respiratory Rate 18 Blood Pressure 132/82 Pulse Oximetry 98 MDM - Skin/Abscess/Foreign Bdy Medical Records Attestation: I reviewed the patient's medical records. Lab Data Attestation: I reviewed the patient's lab results. 10/04/24 18:42 10/04/24 18:42 Labs: Lab Results 10/04/24 Range/Units 18:42 WBC 17.0 H (4.5-11.0) X10^3/uL RBC 2.39 L (4.5-5.9) X10^6/uL Hgb 9.0 L (13.5-17.5) g/dL Hct 26.1 L (41-53) % MCV 109.0 H (80-100) fL MCH 37.5 H (26-34) PG MCHC 34.4 (30-36) % RDW 23.1 H (11.6-14.8) % Plt Count 162 (150-400) X10^3/uL Neut % (Auto) Not Reportable Lymph % (Auto) Not Reportable [place] % (Auto) Not Reportable Eos % (Auto) Not Reportable Baso % (Auto) Not Reportable Lymph # (Auto) Not Reportable [place] # (Auto) Not Reportable Baso # (Auto) Not Reportable Total Counted 100 Seg Neutrophils % 20.0 L (38-70) % Lymphocytes % (Manual) 33.0 (25-45) % Atypical Lymphs % 1.0 H ( - 0) % Monocytes % (Manual) 43.0 H (2-11) % Eosinophils % (Manual) 2.0 (2-4) % Myelocytes % 1.0 H (-0) % Neutrophils # (Manual) 3400 (2251-4731) /uL Smudge Cells 1+ H RBC Morphology See below Hypochromasia 1+ H Anisocytosis 1+ H Sodium 135 L (137-145) mmol/L Potassium 4.3 (3.4-5.1) mmol/L Chloride 103 (98-107) mmol/L Carbon Dioxide 26 (22-32) mmol/L BUN 30 H (9-20) mg/dL Creatinine 1.43 H (0.66-1.25) mg/dL Estimated GFR 49 L (>60) mL/min BUN/Creatinine Ratio 21.0 (6-22) Glucose 107 (80-110) mg/dL Lactate 0.8 (0.7-2.1) mmol/L Uric Acid 4.9 (3.5-8.5) mg/dL Calcium 9.1 (8.4-10.2) mg/dL Total Bilirubin 0.6 (0.2-1.3) mg/dL AST 34 (17-59) IU/L ALT 19 (<50) IU/L Alkaline Phosphatase 91 (38-126) U/L Total Protein 8.2 (6.3-8.2) g/dL Albumin 4.3 (3.5-5.0) g/dL Globulin 3.9 (1.7-4.1) g/dL Albumin/Globulin Ratio 1.1 (1.0-2.8) Lipase 70 (23-300) U/L Procalcitonin 0.211 (<0.5) ng/mL MDM Narrative Medical decision making narrative: well-appearing. Afebrile. Has a leukocytosis of 17 but has a history of CMML and this is actually better than what his leukocytosis has been in the past. Rest of his inflammatory markers are unremarkable. His exam is consistent with a cellulitis. He was tolerating oral intake. The plan will be to start him on oral antibiotics. First dose given here in the emergency department a prescription was sent to the pharmacy of his choice. He was not septic. Not toxic. No indication for admission to the hospital. Low suspicion for septic joint. Low suspicion for fracture. Will hold on a radiologic studies for now. Patient was given return precautions and follow-up instructions. He expressed understanding and agreement with plan. Discharge Plan Departure Patient Disposition: Home Clinical Impression: Cellulitis Instructions: DI for Cellulitis -- Adult Activity Restrictions/Additional Instructions: Continue to take all of your medications as directed. Take the antibiotics as directed. Contact your primary doctor for a follow-up. Return to the emergency department for new or worsening symptoms. Prescriptions: New cephalexin 500 mg capsule 500 mg PO QID 10 Days Qty: 40 0RF No Action hydroxyurea (sickle cell) 200 mg capsule 200 mg PO DAILY (DME) Disabled Parking See Rx Instructions .ROUTE .MEDSUPPLY Qty: 1 0RF Rx Instructions: Patient qualifies for disabled parking as per the attached form. metoprolol succinate 100 mg tablet extended release 24 hr 50 mg PO BID tamsulosin 0.4 mg capsule 0.4 mg PO DAILY Qty: 90 1RF ipratropium bromide 42 mcg (0.06 %) spray,non-aerosol 2 spray intranasal BID Qty: 15 3RF Rx Instructions: administer into each nostril Magnesium Citrate 400 mg 1 tab PO DAILY clopidogrel [Plavix] 75 mg tablet 75 mg PO DAILY Rx Instructions: Only for 45 days aspirin [Adult Low Dose Aspirin] 81 mg tablet,delayed release (DR/EC) 81 mg PO DAILY Rx Instructions: Only for 45 days allopurinol 300 mg tablet 300 mg PO DAILY digoxin 125 mcg (0.125 mg) tablet 0.0625 mg PO .qotherday multivitamin Tablet 1 tab PO DAILY acyclovir 200 mg capsule 200 mg PO BID Referrals: Adrian London MD [Primary Care Provider] - Stand Alone Forms: Patient Portal/API/Survey
[2024-10-04 19:07] LABS: Hematocrit 26.1 % (41-53); Mean Corpuscular HGB Conc 34.4 % (30-36); Mean Corpuscular Hemoglobin 37.5 PG (26-34); Platelet Count 162 X10^3/uL (150-400); Red Blood Cell Count 2.39 X10^6/uL (4.5-5.9); Red Cell Distribution Width 23.1 % (11.6-14.8)
[2024-10-04 19:08] LABS: Add Manual Diff / Slide Review YES
[2024-10-04 19:09] LABS: Lactate (Lactic Acid) 0.8 mmol/L (0.7-2.1); Lipase 70 U/L (23-300); Uric Acid 4.9 mg/dL (3.5-8.5)
[2024-10-04 19:10] LABS: Alanine Aminotransferase 19 IU/L (<50); Albumin 4.3 g/dL (3.5-5.0); Albumin Globulin Ratio 1.1 (1.0-2.8); Alkaline Phosphatase 91 U/L (38-126); Aspartate Aminotransferase 34 IU/L (17-59); Bilirubin Total 0.6 mg/dL (0.2-1.3); Blood Urea Nitrogen 30 mg/dL (9-20); Calcium 9.1 mg/dL (8.4-10.2); Carbon Dioxide 26 mmol/L (22-32); Chloride 103 mmol/L (98-107); Estimated Glomerular Filt Rate 49 mL/min (>60); Globulin 3.9 g/dL (1.7-4.1); Glucose 107 mg/dL (80-110); HEMOLYSIS < 15 (0-50); Potassium 4.3 mmol/L (3.4-5.1); Sodium 135 mmol/L (137-145); Total Protein 8.2 g/dL (6.3-8.2)
[2024-10-04 19:26] LABS: Procalcitonin 0.211 ng/mL (<0.5)
[2024-10-04 19:30] LABS: Neutrophils Absolute Manual 3400 /uL (3000-5900); Total Cells Counted 100
[2024-10-04 19:31] LABS: Anisocytosis 1+; Hypochromasia 1+
[2024-10-04 19:32] LABS: Smudge Cells 1+
[2024-10-04] MEDS: cephALEXin 250 MG CAPSULE 500 MG PO (21:00)
[2024-10-04 21:01] VITALS: BP 132/82; PULSE 89; RESP 18; O2SAT 98
== END 2024-10-04 21:09 | disposition home or self-care (01) ==
PROVIDERS: Emergency Provider Emergency Medicine; PCP Internal Medicine
DX: L03.116 Cellulitis of left lower limb (principal)
CPT/HCPCS: 36415; 80053; 83605; 83690; 84145; 84550; 85007; 85025; 87040; 99283; 99284

== ENCOUNTER → 2024-11-13 13:58 | Outpatient (ROUT) | payer MEDICARE, OTHER, SELFPAY ==
[2024-05-24 14:55] VITALS: BMI 22.4
[2024-11-13 14:10] LABS: Mean Corpuscular HGB Conc 31.9 % (30-36); Mean Corpuscular Hemoglobin 35.7 PG (26-34); Platelet Count 133 X10^3/uL (150-400); Red Blood Cell Count 1.61 X10^6/uL (4.5-5.9); Red Cell Distribution Width 26.5 % (11.6-14.8)
[2024-11-13 14:19] LABS: Add Manual Diff / Slide Review YES; Hemoglobin 5.7 g/dL (13.5-17.5); White Blood Cell Count 99.5 X10^3/uL (4.5-11.0)
[2024-11-13 14:33] LABS: Anisocytosis 2+; Neutrophils Absolute Manual 1990 /uL (3000-5900); Poikilocytosis 1+; Total Cells Counted 100
== END ==
PROVIDERS: PCP Internal Medicine; Visit Provider Family Medicine
DX: C92.00 Acute myeloblastic leukemia, not having achieved remission (principal)
CPT/HCPCS: 85007; 85025